=== PATIENT | male | born 1960 | race Caucasian/White ===

== ENCOUNTER 2018-02-17 17:17 | Emergency (ER) | payer MEDICAID ==
[~2018-02-17] VITALS: Ht 185.4 cm; Wt 113.4 kg
[2018-02-17 19:15] VITALS: BP 173/109
[2018-02-17] MEDS ORDERED: HYDROcodone-ACET 10/325MG TAB PO ONE (20:30)
== END 2018-02-17 20:52 | disposition home or self-care (01) ==
LOC: ER 17:20
DX: S46.912A Strain of unspecified muscle, fascia and tendon at shoulder and upper arm level, left arm, initial encounter (principal); I10 Essential (primary) hypertension; Z90.49 Acquired absence of other specified parts of digestive tract; W18.39XA Other fall on same level, initial encounter; Y93.89 Activity, other specified; Y92.89 Other specified places as the place of occurrence of the external cause; Y99.8 Other external cause status
CPT/HCPCS: 73030

== ENCOUNTER 2018-03-17 13:47 | Inpatient (IN) | payer MEDICAID ==
[~2018-03-17] VITALS: Ht 185.4 cm; Wt 109.4 kg
[2018-03-17] MEDS ORDERED: SODIUM CHLORIDE 0.9% 1,000 ML IV ONE (14:37)
[2018-03-17 14:54] LABS: Basophils # (auto) 0.1 uL; Basophils % (auto) 0.8 % (0.0-2.0); Eosinophils # (auto) 0.3 uL; Eosinophils % (auto) 3.2 % (0.0-7.0); Hematocrit 47.9 % (41.0-53.0); Hemoglobin 16.2 g/dL (13.5-17.5); Lymphocytes # (auto) 3.3 uL; Lymphocytes % (auto) 32.6 % (10.0-50.0); Mean Corpuscular Hemoglobin 29.6 pg (28.0-32.0); Mean Corpuscular Hgb Conc. 33.7 g/dL (32.0-36.0); Mean Corpuscular Volume 87.9 fL (80.0-100.0); Monocytes # (auto) 0.8 uL; Neutrophils # (auto) 5.7 uL; Neutrophils % (auto) 55.4 % (37.0-80.0); Nucleated Red Blood Cells % 0.5 %; Platelet Count (auto) 226 10^3/uL (140-450); Red Blood Cells 5.46 10^6/uL (4.5-5.90); Red Cell Distribution Width 14.1 % (11.8-14.3); White Blood Cell 10.3 10^3/uL (4.4-10.8)
[2018-03-17 15:13] LABS: Alanine Aminotransferase 54 U/L (16-61); Albumin 3.6 g/dL (3.4-5.0); Anion Gap 8 (5-15); Aspartate Aminotransferase 26 U/L (15-37); BUN/Creatinine Ratio 12.5; Blood Urea Nitrogen 12 mg/dL (7-18); Calcium 8.7 mg/dL (8.5-10.1); Carbon Dioxide 24 mmol/L (21-32); Chloride 109 mmol/L (98-107); GFR African American 104 mL/min; GFR Non-African American 86 mL/min; Glucose 88 mg/dL (74-106); Potassium 3.9 mmol/L (3.5-5.1); Sodium 141 mmol/L (136-145)
[2018-03-17 15:17] LABS: Alkaline Phosphatase 70 U/L (45-117); Bilirubin, Total 0.5 mg/dL (0.2-1.0); Total Protein 7.5 g/dL (6.4-8.2)
[2018-03-17] MEDS ORDERED: NITROGLYCERIN 0.4 MG SL TAB SL PRN (15:45)
[2018-03-17] MEDS ORDERED: MORPHINE SULFATE 4 MG/ML SYR/VIAL IV PRN (15:45)
[2018-03-17 15:54] LABS: INR 0.97 (0.9-1.15); Partial Thromboplastin Time 27.5 sec (22.64-33.71); Prothrombin Time 10.6 sec (9.37-12.3)
[2018-03-17 15:58] LABS: Blood Alcohol < 3.0 mg/dL (0-5)
[2018-03-17] MEDS ORDERED: ASPirin 81 mg TAB PO ONE (16:00)
[2018-03-17] MEDS ORDERED: ACETAMINOPHEN 325 MG RECT SUPP PR PRN (17:15)
[2018-03-17] MEDS ORDERED: LABETALOL HCL 5 MG/ML ML 20ML VIAL IV PRN (17:15)
[2018-03-17] MEDS: SODIUM CHLORIDE 0.9% 1,000 ML IV SCH (17:26)
[2018-03-17 18:42] LABS: Cholesterol 146 mg/dL (< 200); HDL Cholesterol 43 mg/dL (40-59); LDL Cholesterol 99 mg/dL (< 100); Triglycerides 125 mg/dL (< 150)
[2018-03-17 18:48] LABS: Folate (Folic Acid) 14.35 ng/mL (5.38-24)
[2018-03-17] MEDS: ACETAMINOPHEN 325 MG TAB PO PRN (20:13)
[2018-03-17 21:20] VITALS: BP 155/91
[2018-03-17] MEDS: FAMOTIDINE (10MG/ML) 2ML VL IV SCH (21:41)
[2018-03-17 22:00] VITALS: BP 159/86
[2018-03-17] MEDS ORDERED: ATORVASTATIN 20 MG TAB PO SCH (22:00)
[2018-03-18] VITALS (7 sets, daily range): BP systolic 132–156; BP diastolic 70–102
[2018-03-18 07:12] LABS: Cholesterol 133 mg/dL (< 200); HDL Cholesterol 37 mg/dL (40-59); LDL Cholesterol 90 mg/dL (< 100); Triglycerides 123 mg/dL (< 150)
[2018-03-18] MEDS ORDERED: LORazepam 2MG/ML-1ML VIAL IV ONE (09:45)
[2018-03-18] MEDS: FAMOTIDINE (10MG/ML) 2ML VL IV SCH ×2 (09:51→21:21)
[2018-03-18] MEDS: ASPirin 81 mg TAB PO SCH (09:52)
[2018-03-18] MEDS: ACETAMINOPHEN 325 MG TAB PO PRN (09:52)
[2018-03-18] MEDS: SODIUM CHLORIDE 0.9% 1,000 ML IV SCH (09:55)
[2018-03-18] MEDS ORDERED: NIFE60TA53 PO (10:51)
[2018-03-18] MEDS ORDERED: ACETTAB85 PO (10:51)
[2018-03-18] MEDS ORDERED: CYCL1TAB18 PO (10:51)
[2018-03-18] MEDS ORDERED: LISI-275 PO (10:51)
[2018-03-18] MEDS ORDERED: IBUP800T24 PO (10:51)
[2018-03-18] MEDS ORDERED: MORPHINE SULFATE 4 MG/ML SYR/VIAL IV PRN (12:15)
[2018-03-18] MEDS ORDERED: LABETALOL HCL 5 MG/ML ML 20ML VIAL IV PRN (17:00)
[2018-03-18] MEDS: HYDROcodone-ACET 5/325MG TAB PO PRN ×2 (17:09→23:21)
[2018-03-18] MEDS ORDERED: ATORVASTATIN 20 MG TAB PO SCH (22:00)
[2018-03-19] MEDS: SODIUM CHLORIDE 0.9% 1,000 ML IV SCH ×2 (02:09→19:15)
[2018-03-19 05:00] VITALS: BP 120/63
[2018-03-19] MEDS: HYDROcodone-ACET 5/325MG TAB PO PRN ×2 (08:27→17:25)
[2018-03-19 09:00] VITALS: BP 138/99
[2018-03-19] MEDS: FAMOTIDINE (10MG/ML) 2ML VL IV SCH (10:03)
[2018-03-19] MEDS: ASPirin 81 mg TAB PO SCH (10:04)
[2018-03-19 13:00] VITALS: BP 126/84
[2018-03-19 16:11] VITALS: BP 126/84
[2018-03-19 17:00] VITALS: BP 145/95
== END 2018-03-19 19:45 | DRG 45 ==
LOC: ER 13:51 → TELE 13:52 → TELE-WESTW 21:12
PROVIDERS: ADMIT Internal Medicine; ATTEND Internal Medicine
DX: I63.9 Cerebral infarction, unspecified (principal); G93.41 Metabolic encephalopathy; G81.91 Hemiplegia, unspecified affecting right dominant side; H53.461 Homonymous bilateral field defects, right side; E78.5 Hyperlipidemia, unspecified; F17.210 Nicotine dependence, cigarettes, uncomplicated; I11.9 Hypertensive heart disease without heart failure; G89.29 Other chronic pain; M54.5 Low back pain; Z59.0 Homelessness; Z79.82 Long term (current) use of aspirin; Z79.899 Other long term (current) drug therapy
CPT/HCPCS: 36415; 70450; 70551; 71046; 80053; 80061; 80320; 82607; 82746; 83036; 83735; 84443; 84484; 85025; 85610; 85730; 93005; 93306; 93886; 94761; 95819; 96360; 96361; J3490

== ENCOUNTER 2018-04-08 09:08 | Inpatient (IN) | payer MEDICAID ==
[~2018-04-08] VITALS: Ht 182.9 cm; Wt 103.7 kg
[~2018-04-08 09:08] MED LIST: ACETTAB85 PO; CYCL1TAB18 PO; IBUP800T24 PO; LISI-275 PO; NIFE60TA53 PO
[2018-04-08] MEDS: NIFEdipine ER 30 MG TAB PO SCH (10:00)
[2018-04-08 10:05] LABS: Basophils # (auto) 0.1 uL; Eosinophils # (auto) 0.2 uL; Eosinophils % (auto) 1.5 % (0.0-7.0); Hematocrit 44.8 % (41.0-53.0); Hemoglobin 14.5 g/dL (13.5-17.5); Lymphocytes # (auto) 3.2 uL; Lymphocytes % (auto) 23.9 % (10.0-50.0); Mean Corpuscular Hemoglobin 28.3 pg (28.0-32.0); Mean Corpuscular Hgb Conc. 32.4 g/dL (32.0-36.0); Mean Corpuscular Volume 87.3 fL (80.0-100.0); Monocytes # (auto) 0.9 uL; Monocytes % (auto) 6.3 % (0.0-12.0); Neutrophils % (auto) 67.3 % (37.0-80.0); Platelet Count (auto) 316 10^3/uL (140-450); Red Blood Cells 5.13 10^6/uL (4.5-5.90); Red Cell Distribution Width 14.1 % (11.8-14.3); White Blood Cell 13.4 10^3/uL (4.4-10.8)
[2018-04-08 10:22] LABS: Alanine Aminotransferase 67 U/L (16-61); Albumin 3.6 g/dL (3.4-5.0); Anion Gap 10 (5-15); Aspartate Aminotransferase 42 U/L (15-37); BUN/Creatinine Ratio 19.2; Blood Urea Nitrogen 24 mg/dL (7-18); Calcium 8.3 mg/dL (8.5-10.1); Carbon Dioxide 23 mmol/L (21-32); Chloride 104 mmol/L (98-107); GFR African American 77 mL/min; GFR Non-African American 63 mL/min; Glucose 165 mg/dL (74-106); Magnesium 1.9 mg/dL (1.6-2.6); Potassium 3.8 mmol/L (3.5-5.1); Sodium 137 mmol/L (136-145)
[2018-04-08 10:27] LABS: Alkaline Phosphatase 62 U/L (45-117); Bilirubin, Total 0.7 mg/dL (0.2-1.0); Total Protein 7.9 g/dL (6.4-8.2)
[2018-04-08 10:57] LABS: Alcohol, Urine < 3.0 mg/dL (0-5); Amphetamine Screen, Urine NEGATIVE (NEGATIVE); Barbiturate Scree,Urine NEGATIVE (NEGATIVE); Benzodiazephine Screen, Urine NEGATIVE (NEGATIVE); Cannabinoid Screen, Urine NEGATIVE (NEGATIVE); Cocaine Screen, Urine NEGATIVE (NEGATIVE); Opiate Scree,Urine NEGATIVE (NEGATIVE); Phencyclidine Screen, Urine NEGATIVE (NEGATIVE)
[2018-04-08 11:03] LABS: Urine Bacteria NONE SEEN /hpf (None Seen); Urine Blood Negative /uL (Negative); Urine Mucus FEW (None Seen); Urine Specific Gravity 1.028 (1.001-1.035); Urine WBC 1 /hpf (0 - 3)
[2018-04-08 11:31] LABS: INR 1.01 (0.9-1.15); Partial Thromboplastin Time 28.7 sec (23.78-33.04); Prothrombin Time 10.8 sec (9.27-12.13)
[2018-04-08] MEDS ORDERED: MORPHINE SULFATE 8mg/ml INJ SDV IV PRN ×2 (13:30)
[2018-04-08] MEDS ORDERED: CYCLOBENZAPRINE HCL 10 MG TAB PO PRN (13:30)
[2018-04-08] MEDS ORDERED: LACTULOSE 20Gm/30ML SOLN PO PRN (13:30)
[2018-04-08] MEDS ORDERED: TEMAZEPAM 15 MG CAP PO PRN (13:30)
[2018-04-08] MEDS ORDERED: LORazepam 0.5 MG TAB PO PRN (13:30)
[2018-04-08] MEDS ORDERED: PROMETHAZINE HCL 25 MG/ML 1ML IV PRN (13:30)
[2018-04-08] MEDS ORDERED: ACETAMINOPHEN 500 MG TAB PO PRN (13:30)
[2018-04-08] MEDS ORDERED: NITROGLYCERIN 0.4 MG SL TAB SL PRN (13:30)
[2018-04-08] MEDS ORDERED: DEXTROSE (50%) 50ML SYRG IV PRN (13:30)
[2018-04-08] MEDS ORDERED: LABETALOL HCL 5 MG/ML ML 20ML VIAL IV PRN (13:30)
[2018-04-08] MEDS ORDERED: HYDROcodone-ACET 5/325MG TAB PO PRN (13:30)
[2018-04-08] MEDS ORDERED: ENOXAPARIN SOD 40 MG/0.4 ML SYRINGE SC ONE (14:00)
[2018-04-08] MEDS ORDERED: ASPirin 81 mg TAB PO ONE (14:00)
[2018-04-08] MEDS ORDERED: LISINOPRIL 5 MG TAB PO ONE (14:00)
[2018-04-08] MEDS ORDERED: NIFEdipine ER 30 MG TAB PO ONE (14:00)
[2018-04-08] MEDS ORDERED: PANTOPRAZOLE 40 MG TAB PO ONE (14:00)
[2018-04-08] MEDS: SODIUM CHLORIDE 0.9% 1,000 ML IV SCH (14:24)
[2018-04-08] MEDS: InsuLIN REG 1unit/0.01ml Soln (100units/ml) SC SCH ×2 (17:00→22:00)
[2018-04-08] MEDS: ACCU-CHEK COMFORT CURVE STRIP VI SCH ×2 (17:06→22:15)
[2018-04-08] MEDS ORDERED: LORazepam 2MG/ML-1ML VIAL IV PRN (17:45)
[2018-04-08 18:03] LABS: Folate (Folic Acid) 16.15 ng/mL (5.38-24)
[2018-04-08] MEDS: ATORVASTATIN 20 MG TAB PO SCH (22:13)
[2018-04-08 23:00] VITALS: BP 121/71
[2018-04-09] MEDS: SODIUM CHLORIDE 0.9% 1,000 ML IV SCH ×2 (01:49→06:04)
[2018-04-09 05:07] VITALS: BP 103/64
[2018-04-09] MEDS: ACCU-CHEK COMFORT CURVE STRIP VI SCH ×3 (06:03→17:13)
[2018-04-09] MEDS: InsuLIN REG 1unit/0.01ml Soln (100units/ml) SC SCH ×3 (06:03→17:00)
[2018-04-09 07:09] LABS: Basophils # (auto) 0 uL; Basophils % (auto) 0.5 % (0.0-2.0); Eosinophils # (auto) 0.3 uL; Eosinophils % (auto) 2.8 % (0.0-7.0); Hematocrit 40.5 % (41.0-53.0); Hemoglobin 13.6 g/dL (13.5-17.5); Lymphocytes # (auto) 5.2 uL; Lymphocytes % (auto) 47.8 % (10.0-50.0); Mean Corpuscular Hemoglobin 29.3 pg (28.0-32.0); Mean Corpuscular Hgb Conc. 33.7 g/dL (32.0-36.0); Mean Corpuscular Volume 86.9 fL (80.0-100.0); Monocytes # (auto) 0.8 uL; Monocytes % (auto) 7.7 % (0.0-12.0); Neutrophils # (auto) 4.5 uL; Neutrophils % (auto) 41.2 % (37.0-80.0); Nucleated Red Blood Cells % 0.2 %; Platelet Count (auto) 268 10^3/uL (140-450); Red Blood Cells 4.66 10^6/uL (4.5-5.90); Red Cell Distribution Width 13.7 % (11.8-14.3); White Blood Cell 10.8 10^3/uL (4.4-10.8)
[2018-04-09 07:13] LABS: Albumin 3.3 g/dL (3.4-5.0); BUN/Creatinine Ratio 22.2; Bilirubin, Total 0.7 mg/dL (0.2-1.0); Calcium 8.2 mg/dL (8.5-10.1); Potassium 3.8 mmol/L (3.5-5.1); Total Protein 6.9 g/dL (6.4-8.2)
[2018-04-09] MEDS ORDERED: SODIUM CHLORIDE 0.9% 1,000 ML IV SCH (08:30)
[2018-04-09 08:55] VITALS: BP 116/82
[2018-04-09] MEDS: LISINOPRIL 5 MG TAB PO SCH (09:14)
[2018-04-09] MEDS: PANTOPRAZOLE 40 MG TAB PO SCH (09:14)
[2018-04-09] MEDS: NIFEdipine ER 30 MG TAB PO SCH (09:14)
[2018-04-09] MEDS ORDERED: ENOXAPARIN SOD 40 MG/0.4 ML SYRINGE SC SCH (10:00)
[2018-04-09] MEDS ORDERED: ASPirin 81 mg TAB PO SCH (10:00)
[2018-04-09] MEDS ORDERED: IOHEXOL 350 MG/ML 100ML IJ ONE (10:24)
[2018-04-09 12:00] VITALS: BP 116/72
[2018-04-09 16:49] VITALS: BP 118/80
[2018-04-09] MEDS ORDERED: HEPARIN DRIP/D5W 100UNITS/ML 250 ML IV SCH (17:17)
[2018-04-09 18:34] LABS: Basophils # (auto) 0.1 uL; Basophils % (auto) 0.6 % (0.0-2.0); Eosinophils # (auto) 0.3 uL; Eosinophils % (auto) 2.8 % (0.0-7.0); Hematocrit 42.9 % (41.0-53.0); Hemoglobin 14.2 g/dL (13.5-17.5); Lymphocytes # (auto) 4.1 uL; Lymphocytes % (auto) 36.2 % (10.0-50.0); Mean Corpuscular Hgb Conc. 33.1 g/dL (32.0-36.0); Mean Corpuscular Volume 87.8 fL (80.0-100.0); Monocytes # (auto) 0.9 uL; Monocytes % (auto) 7.7 % (0.0-12.0); Neutrophils # (auto) 5.9 uL; Neutrophils % (auto) 52.7 % (37.0-80.0); Platelet Count (auto) 290 10^3/uL (140-450); Red Blood Cells 4.88 10^6/uL (4.5-5.90); White Blood Cell 11.2 10^3/uL (4.4-10.8)
[2018-04-09 18:51] LABS: Partial Thromboplastin Time 29.2 sec (23.78-33.04); Prothrombin Time 10.7 sec (9.27-12.13)
[2018-04-09 20:00] VITALS: BP 134/92
[2018-04-09] MEDS: ATORVASTATIN 20 MG TAB PO SCH (21:35)
[2018-04-09 22:00] VITALS: BP 134/92
[2018-04-10 03:47] LABS: Basophils # (auto) 0.1 uL; Basophils % (auto) 0.6 % (0.0-2.0); Eosinophils # (auto) 0.4 uL; Eosinophils % (auto) 3.3 % (0.0-7.0); Hemoglobin 13.8 g/dL (13.5-17.5); Lymphocytes % (auto) 46.9 % (10.0-50.0); Mean Corpuscular Hemoglobin 29.1 pg (28.0-32.0); Mean Corpuscular Hgb Conc. 33.8 g/dL (32.0-36.0); Mean Corpuscular Volume 86.3 fL (80.0-100.0); Monocytes # (auto) 0.8 uL; Monocytes % (auto) 7.6 % (0.0-12.0); Neutrophils # (auto) 4.5 uL; Neutrophils % (auto) 41.6 % (37.0-80.0); Nucleated Red Blood Cells % 0.1 %; Platelet Count (auto) 266 10^3/uL (140-450); Red Blood Cells 4.75 10^6/uL (4.5-5.90); Red Cell Distribution Width 13.9 % (11.8-14.3); White Blood Cell 10.8 10^3/uL (4.4-10.8)
[2018-04-10 04:01] LABS: BUN/Creatinine Ratio 19.5; Calcium 8.4 mg/dL (8.5-10.1); Magnesium 2.1 mg/dL (1.6-2.6); Potassium 3.7 mmol/L (3.5-5.1)
[2018-04-10 04:02] LABS: Partial Thromboplastin Time 28.1 sec (23.78-33.04); Prothrombin Time 10.7 sec (9.27-12.13)
[2018-04-10 05:00] VITALS: BP 130/77
[2018-04-10] MEDS ORDERED: HEPARIN SODIUM (PORCINE) 5000 UNITS/ML 1ML VIAL IV ONE ×2 (07:00→10:30)
[2018-04-10 09:00] VITALS: BP 117/66
[2018-04-10] MEDS: PANTOPRAZOLE 40 MG TAB PO SCH (09:11)
[2018-04-10] MEDS: NIFEdipine ER 30 MG TAB PO SCH (09:12)
[2018-04-10] MEDS: LISINOPRIL 5 MG TAB PO SCH (09:12)
[2018-04-10 09:27] LABS: Partial Thromboplastin Time 28.1 sec (23.78-33.04); Prothrombin Time 10.7 sec (9.27-12.13)
[2018-04-10 16:39] VITALS: BP 103/65
[2018-04-10 20:00] VITALS: BP 117/66
[2018-04-10] MEDS: ATORVASTATIN 20 MG TAB PO SCH (20:54)
[2018-04-10 22:00] VITALS: BP 140/78
[2018-04-11 05:12] VITALS: BP 134/83
[2018-04-11 07:54] VITALS: BP 102/72
[2018-04-11] MEDS: NIFEdipine ER 30 MG TAB PO SCH (09:15)
[2018-04-11] MEDS: PANTOPRAZOLE 40 MG TAB PO SCH (09:15)
[2018-04-11] MEDS: LISINOPRIL 5 MG TAB PO SCH (09:16)
[2018-04-11 09:37] VITALS: BP 102/72
[2018-04-11] MEDS ORDERED: ASPirin 81 mg TAB PO SCH (10:00)
== END 2018-04-11 10:47 | DRG 45 ==
LOC: ER 09:10 → TELE 09:11 → TELE-WESTW 22:53
PROVIDERS: ADMIT Internal Medicine; ATTEND Internal Medicine
DX: I63.232 Cerebral infarction due to unspecified occlusion or stenosis of left carotid arteries (principal); I77.71 Dissection of carotid artery; I61.9 Nontraumatic intracerebral hemorrhage, unspecified; I67.1 Cerebral aneurysm, nonruptured; E11.65 Type 2 diabetes mellitus with hyperglycemia; G81.91 Hemiplegia, unspecified affecting right dominant side; K59.00 Constipation, unspecified; F41.9 Anxiety disorder, unspecified; G47.00 Insomnia, unspecified; R47.01 Aphasia; F12.90 Cannabis use, unspecified, uncomplicated; I67.2 Cerebral atherosclerosis; D72.829 Elevated white blood cell count, unspecified; R00.1 Bradycardia, unspecified; G89.29 Other chronic pain; M54.5 Low back pain; I10 Essential (primary) hypertension; F17.210 Nicotine dependence, cigarettes, uncomplicated; R29.707 NIHSS score 7; Z59.0 Homelessness; Z79.82 Long term (current) use of aspirin; Z79.899 Other long term (current) drug therapy; Z90.49 Acquired absence of other specified parts of digestive tract
CPT/HCPCS: 36415; 70450; 70496; 70498; 70551; 71046; 80048; 80053; 80061; 80307; 81001; 82550; 82607; 82746; 82962; 83036; 83735; 84443; 84484; 85025; 85610; 85652; 85730; 87081; 92610; 93005; 95819; 96360; 96372; 97116; 97163; 97530; J1815

== ENCOUNTER 2021-04-06 20:37 | Emergency (ER) | payer MEDICAID ==
[~2021-04-06] VITALS: Ht 182.9 cm; Wt 117.9 kg
[~2021-04-06 20:37] MED LIST changes: +ACET-1603 PO; -ACETTAB85 PO; +CYCL10TA6 PO; -CYCL1TAB18 PO; -IBUP800T24 PO; +IBUP800T26 PO
[2021-04-06 21:26] LABS: Basophils # (auto) 0.1 10 ^3/uL (0-0.2); Basophils % (auto) 0.5 % (0.0-2.0); Eosinophils # (auto) 0.4 10 ^3/uL (0-0.8); Eosinophils % (auto) 4.2 % (0.0-7.0); Hematocrit 48.9 % (41.0-53.0); Hemoglobin 17.1 g/dL (13.5-17.5); Lymphocytes # (auto) 3.7 10 ^3/uL (0.4-5.4); Lymphocytes % (auto) 36.6 % (10.0-50.0); Mean Corpuscular Hemoglobin 30.4 pg (28.0-32.0); Mean Corpuscular Hgb Conc. 34.9 g/dL (32.0-36.0); Mean Corpuscular Volume 87.3 fL (80.0-100.0); Monocytes # (auto) 0.8 10 ^3/uL (0-1.3); Neutrophils # (auto) 5.1 10 ^3/uL (1.6-8.6); Neutrophils % (auto) 50.7 % (37.0-80.0); Nucleated Red Blood Cells % 0.4 %; Platelet Count (auto) 231 10^3/uL (140-450); Red Cell Distribution Width 14.4 % (11.8-14.3); White Blood Cell 10.1 10^3/uL (4.4-10.8)
[2021-04-06 21:43] LABS: Albumin 3.6 g/dL (3.4-5.0); Calcium 8.7 mg/dL (8.5-10.1)
[2021-04-06 21:47] LABS: BUN/Creatinine Ratio 12.2; Bilirubin, Total 0.5 mg/dL (0.2-1.0); Total Protein 8.1 g/dL (6.4-8.2)
[2021-04-07 02:40] LABS: Urine Bacteria NONE SEEN /hpf (None Seen); Urine Blood Negative /uL (Negative); Urine Hyaline Cast FEW /lpf (0 - 2); Urine Mucus FEW (None Seen); Urine Specific Gravity 1.034 (1.001-1.035); Urine WBC 2 /hpf (0 - 3)
[2021-04-07 02:44] LABS: Amphetamine Screen, Urine POSITIVE (NEGATIVE); Benzodiazephine Screen, Urine NEGATIVE (NEGATIVE); Cannabinoid Screen, Urine POSITIVE (NEGATIVE); Cocaine Screen, Urine NEGATIVE (NEGATIVE); Opiate Scree,Urine NEGATIVE (NEGATIVE); Phencyclidine Screen, Urine NEGATIVE (NEGATIVE)
[2021-04-07 02:51] LABS: Barbiturate Scree,Urine NEGATIVE (NEGATIVE)
[2021-04-07 03:00] VITALS: BP 167/105
== END 2021-04-06 22:25 | disposition left against medical advice (07) ==
LOC: ER 20:37 → EDBD 20:37 → ER 22:25
DX: F41.9 Anxiety disorder, unspecified (principal); M79.18 Myalgia, other site; I10 Essential (primary) hypertension; F17.210 Nicotine dependence, cigarettes, uncomplicated; Z79.899 Other long term (current) drug therapy; Z86.73 Personal history of transient ischemic attack (TIA), and cerebral infarction without residual deficits; Z90.89 Acquired absence of other organs; Z59.0 Homelessness; Z53.21 Procedure and treatment not carried out due to patient leaving prior to being seen by health care provider
CPT/HCPCS: 36415; 80053; 80307; 81001; 85025; 93005

== ENCOUNTER 2024-12-22 20:18 | Inpatient (IN) | payer MEDICAID ==
[~2024-12-22] VITALS: Ht 180.3 cm; Wt 109.5 kg
[~2024-12-22 20:18] MED LIST changes: +CYCL-839 PO; -CYCL10TA6 PO; +IBUP-1455 PO; -IBUP800T26 PO
--- NOTE | 2024-12-22 21:05 | ED.PDOC ---
History of Present Illness HPI Comments 64 year old male brought in by EMS presents to the ED with a chief complaint of high blood pressure onset today (12/22/24). Patient states he woke up today experiencing headache, chest discomfort described as a pressure sensation. He was riding his bike to [place], when he "felt bad" and believes his BP is high, called 911. PMHx HTN, CVA. Denies dizziness, blurry vision, shortness of breath, nausea, vomiting, diarrhea, abdominal pain, dysuria, hematuria. No other symptoms or modifying factors present at this time. Chief Complaint: High Blood Pressure Time Seen by MD: 20:45 Primary Care Provider: Maulik Jang Notes: Medications, Allergies Allergies: Coded Allergies: NO KNOWN ALLERGIES (Unverified , 02/17/18) Home Meds Reported Medications Cyclobenzaprine Hcl (Cyclobenzaprine Hcl) 10 Mg Tab, 10 MG PO 03/18/18 Acetaminophen W/ Codeine (Tylenol/Codeine #3) #3 Tab, PO Q6HPRN 03/18/18 Ibuprofen Micronized (Ibuprofen) 800 Mg Tab, 800 MG PO 03/18/18 Lisinopril (Lisinopril) 5 Mg Tab, 5 MG PO DAILY 03/18/18 Nifedipine (Nifedipine Er) 60 Mg Tab, 60 MG PO DAILY 03/18/18 Information Source: Patient, Emergency Med Personnel Mode of Arrival: EMS Severity: Moderate Timing: Hours Duration: Since onset Prehospital treatment: None Past Medical History PAST MEDICAL HISTORY: CVA, HTN Surgical History: Appendectomy Family History Family History: Unknown Social History Smoker: Cigarettes Alcohol: Denies ETOH Use Drugs: Marijuana Lives In: Homeless Constitutional: denies: chills, diaphoresis, fatigue, fever, malaise, sweats, w eakness, others EENTM: denies: blurred vision, double vision, ear bleeding, ear discharge, ear drainage, ear pain, ear ringing, eye pain, eye redness, hearing loss, mouth pain, mouth swelling, nasal discharge, nose bleeding, nose congestion, nose pain, photophobia, tearing, throat pain, throat swelling, voice changes, others Respiratory: denies: cough, hemoptysis, orthopnea, SOB at rest, shortness of breath, SOB with excertion, stridor, wheezing, others Cardiovascular: reports: chest pain (pressure), others (high BP); denies: dizzy spells, diaphoresis, Dyspnea on exertion, edema, irregular heart beat, left arm pain, lightheadedness, palpitations, PND, syncope Gastrointestinal: denies: abdomen distended, abdominal pain, blood streaked bowels, constipated, diarrhea, dysphagia, difficulty swallowing, hematemesis, melena, nausea, poor appetite, poor fluid intake, rectal bleeding, rectal pain, vomiting, others Genitourinary: denies: burning, dysuria, flank pain, frequency, hematuria, incontinence, penile discharge, penile sore, pain, testicle pain, testicle swelling, urgency, others Neurological: reports: headache; denies: dizziness, fainting, left sided numbness, left sided weakness, numbness, paresthesia, pre-existing deficit, right sided numbness, right sided weakness, seizure, speech problems, tingling, tremors, weakness, others Musculoskeletal: denies: back pain, gout, joint pain, joint swelling, muscle pain, muscle stiffness, neck pain, others Integumetry: denies: bruises, change in color, change in hair/nails, dryness, laceration, lesions, lumps, rash, wounds, others Allergic/Immunocompromised: denies: Difficulty Healing, Frequent Infections, Hives, Itching, others Hematologic/Lymphatic: denies: anemia, blood clots, easy bleeding, easy bruising, swollen glands, others Endocrine: denies: excessive hunger, excessive sweating, excessive thirst, excessive urination, flushing, intolerance to cold, intolerance to heat, unexplained weight gain, unexplained weight loss, others Psychiatric: denies: anxiety, bipolar disorder, depression, hopeless, panic disorder, schizophrenia, sleepless, suicidal, others All Other Systems: Reviewed and Negative Physical Exam General Appearance: No Apparent Distress, Normal HEENT: Normal ENT Inspection, Pharynx Normal, TMs Normal Neck: Full Range of Motion, Non-Tender, Normal, Normal Inspection Respiratory: Chest Non-Tender, Lungs Clear, No Accessory Muscle Use, No Respiratory Distress, Normal Breath Sounds Cardiovascular: No Edema, No JVD, No Murmur, No Gallop, Normal Peripheral Pulses, Regular Rate/Rhythm Breast Exam: Deferred Gastrointestinal: No Organomegaly, Non Tender, No Pulsatile Mass, Normal Bowel Sounds, Soft Genitalia: Deferred Pelvic: Deferred Rectal: Deferred Extremities: No calf tenderness, Normal capillary refill, Normal inspection, Normal range of motion, Non-tender, No pedal edema Musculoskeletal : Apperance: Normal Neurologic: Alert, computer security manager II-XII nml as Tested, No Motor Deficits, Normal Affect, Normal Mood, No Sensory Deficits Cerebellar Function: Normal Reflexes: Normal Skin: Dry, Normal Color, Warm Lymphatic: No Adenopathy Was a procedure done? Was a procedure done?: No Differential Dx Considerations may include: Hypertensive emergency, electrolyte abnormality, viral syndrome, ACS, CVA X-Ray, Labs, Meds, VS Vital Signs Date Time Temp Pulse Resp B/P (MAP) Pulse Ox O2 Delivery O2 Flow Rate FiO2 12/22/24 20:18 98.4 61 18 167/109 (128) 98 Lab Test 12/22/24 22:34 12/22/24 21:31 Range/Units Troponin I High Sensitivity 4 4 </=54 ng/L White Blood Count 11.0 H 4.4-10.8 10^3/uL Red Blood Count 5.50 4.5-5.90 10^6/uL Hemoglobin 16.2 13.5-17.5 g/dL Hematocrit 47.9 41.0-53.0 % Mean Corpuscular Volume 87.1 80.0-100.0 fL Mean Corpuscular Hemoglobin 29.4 28.0-32.0 pg Mean Corpuscular Hemoglobin Concent 33.7 32.0-36.0 g/dL Red Cell Distribution Width 14.7 H 11.8-14.3 % Platelet Count 225 140-450 10^3/uL Mean Platelet Volume 8.4 6.9-10.8 fL Neutrophils (%) (Auto) 52.0 37.0-80.0 % Lymphocytes (%) (Auto) 36.4 10.0-50.0 % Monocytes (%) (Auto) 7.1 0.0-12.0 % Eosinophils (%) (Auto) 3.4 0.0-7.0 % Basophils (%) (Auto) 1.1 0.0-2.0 % Neutrophils # (Auto) 5.7 1.6-8.6 10 ^3/uL Lymphocytes # (Auto) 4.0 0.4-5.4 10 ^3/uL Monocytes # (Auto) 0.8 0-1.3 10 ^3/uL Eosinophils # (Auto) 0.4 0-0.8 10 ^3/uL Basophils # (Auto) 0.1 0-0.2 10 ^3/uL Nucleated Red Blood Cells 0.1 % Sodium Level 138 136-145 mmol/L Potassium Level 4.1 3.5-5.1 mmol/L Chloride Level 108 H 98-107 mmol/L Carbon Dioxide Level 22 20-31 mmol/L Anion Gap 8 5-15 Blood Urea Nitrogen 15 9-23 mg/dL Creatinine 0.98 0.700-1.30 mg/dL Glomerular Filtration Rate Calc 86 >90 mL/min BUN/Creatinine Ratio 15.3 10.0-20.0 Serum Glucose 118 H 74-106 mg/dL Calcium Level 9.7 8.7-10.4 mg/dL [place] [address] Ph: [phone] DIAGNOSTIC IMAGING Diagnostic Imaging Report : [id number] Signed PATIENT: NANCY ORELLANA ACCT: [id number] UNIT: [id number] : 1960 LOC: ER ROOM / BED: / AGE / SEX: 64 / M ADM STATUS: REG ER SERVICE 10 ORDERING PHYSICIAN: HOMA LOUISE MD PROCEDURE(s): CXRP - CHEST PORTABLE REASON: htn ORDER NUMBER(s): [id number], ACCESSION NUMBER(s): [id number] CHEST RADIOGRAPH Indication: htn Technique: Single frontal view of the chest was obtained Comparison: None FINDINGS: Lines and Tubes: None Lungs: Clear Pleura: No effusion. No pneumothorax. Cardiomediastinal contours: Unremarkable Bones: Unremarkable IMPRESSION: Clear lungs. ATED BY: LORI WELDON DO DICTATED DATE/TIME: 12/22/242228 SIGNED BY: LORI WELDON DO SIGNED DATE/TIME: 12/22/242228 CC: [address] [address] Ph: [phone] DIAGNOSTIC IMAGING Diagnostic Imaging Report : [id number] Signed PATIENT: NANCY ORELLANA ACCT: [id number] UNIT: [id number] : 1960 LOC: ER ROOM / BED: / AGE / SEX: 64 / M ADM STATUS: REG ER SERVICE 10 ORDERING PHYSICIAN: HOMA LOUISE MD PROCEDURE(s): HWOCT - HEAD WITHOUT CONTRAST REASON: near syncope ORDER NUMBER(s): [id number], ACCESSION NUMBER(s): [id number] EXAM: CT HEAD WITHOUT CONTRAST INDICATION: near syncope TECHNIQUE: CT of the head without intravenous contrast. Radiation Dose Information: CT Dose: CTDI volume is 62.45 mGy. Dose-length product is 1230.51 mGy*cm The dose indicators for CT are the volume Computed Tomography (CT) Dose Index (CTDIvol) and the Dose Length Product (DLP), and are measured in units of mGy and mGy-cm, respectively. These indicators are not patient dose, but values generated from the CT scanner acquisition factors. The report includes radiation exposure data for exposures received during this examination. COMPARISON: None FINDINGS: There is no evidence of acute intracranial hemorrhage, extra-axial collection, mass effect, midline shift, herniation or hydrocephalus. The ventricles, sulci and cisterns are age appropriate. Area of decreased attenuation posterior left parietal lobe suggesting old infarct The ni-white differentiation is intact. Patchy periventricular and subcortical white matter hypoattenuation is nonspecific but may be related to small vessel ischemic disease. Mucosal thickening of the right maxillary sinus sinuses and mastoid air cells are clear. The surrounding soft tissues and osseous structures are unremarkable. IMPRESSION: 1. Findings consistent with area of encephalomalacia (i.e. Old infarct) posterior left parietal lobe. ATED BY: NIVIA JACKMAN Jr., DO DICTATED DATE/TIME: 12/22/242249 SIGNED BY: NIVIA JACKMAN Jr., SIGNED DATE/TIME: 12/22/242249 CC: Time of 1ST Reevaluation: 21:15 Reevaluation 1ST: Unchanged Patient Education/Counseling: Diagnosis, Treatment, Prognosis Family Education/Counseling: No Family Present Additional Information The following tests were ordered, and results were reviewed by me: BMP, CBC, TROP -x3, UA, XY CHEST, CT HEAD WO CONTRAST Additional Information was gathered from interviewing the following independent historians: EMS I reviewed and agreed with the following test results read by other providers:XY CHEST, CT HEAD WO CONTRAST I discussed treatment and results with medical personnel and: patient Departure 1 Departure Time of Disposition: 23:23 (Patient presented with hypertension and symptoms concerning for hypertensive emergency. Patient is receiving iv blood pressure medications requiring intensive monitoring. Data: 1. I ordered and reviewed the result of at least 3 labs including a CBC, BMP, and Urinalysis. 2. I independently interpreted the following tests: CT Brain: Which appears benign. EKG which is Normal Sinus RhythmRisk:This patient has a high risk of morbidity due to further diagnostic testing or treatment and may suffer from an acute cardiac disorder. Workup reveals hypertensive emergency and patient should be admitted for further workup. and possible expert consultation. ) Impression: Primary Impression: Hypertensive emergency Additional Impressions: Generalized weakness Near syncope Shortness of breath Disposition: ADMITTED INPATIENT Admit to: Med Surg Condition: Serious Critical Care Note Critical Care Time?: No Stability Stability form required: No I personally scribed for HOMA LOUISE MD (FAHAD) on 12/22/24 at 21:05. Electronically submitted by Julisa Rutledge ([email or web address]). I personally scribed for HOMA LOUISE MD (FAHAD) on 12/22/24 at 21:29. Electronically submitted by Julisa Rutledge ([email or web address]). I personally scribed for HOMA LOUISE MD (FAHAD) on 12/22/24 at 21:44. Electronically submitted by Julisa Rutledge ([email or web address]). I personally scribed for HOMA LOUISE MD ([email or web address]) on 12/22/24 at 22:10. Electronically submitted by Julisa Rutledge ([email or web address]). I personally scribed for HOMA LOUISE MD (AYADO) on 12/22/24 at 22:12. Electronically submitted by Julisa Rutledge ([email or web address]). I personally scribed for HOMA LOUISE MD (FAHAD) on 12/22/24 at 23:00. Electronically submitted by Julisa Rutledge ([email or web address]). HOMA LOUISE MD Dec 22, 2024 21:05
[2024-12-22 21:47] LABS: Basophils # (auto) 0.1 10 ^3/uL (0-0.2); Basophils % (auto) 1.1 % (0.0-2.0); Eosinophils # (auto) 0.4 10 ^3/uL (0-0.8); Eosinophils % (auto) 3.4 % (0.0-7.0); Hematocrit 47.9 % (41.0-53.0); Hemoglobin 16.2 g/dL (13.5-17.5); Lymphocytes % (auto) 36.4 % (10.0-50.0); Mean Corpuscular Hemoglobin 29.4 pg (28.0-32.0); Mean Corpuscular Hgb Conc. 33.7 g/dL (32.0-36.0); Mean Corpuscular Volume 87.1 fL (80.0-100.0); Monocytes # (auto) 0.8 10 ^3/uL (0-1.3); Monocytes % (auto) 7.1 % (0.0-12.0); Neutrophils # (auto) 5.7 10 ^3/uL (1.6-8.6); Nucleated Red Blood Cells % 0.1 %; Platelet Count (auto) 225 10^3/uL (140-450); Red Cell Distribution Width 14.7 % (11.8-14.3)
[2024-12-22 22:02] LABS: Potassium 4.1 mmol/L (3.5-5.1); Sodium 138 mmol/L (136-145)
[2024-12-22 22:03] LABS: Anion Gap 8 (5-15); Calcium 9.7 mg/dL (8.7-10.4); Carbon Dioxide 22 mmol/L (20-31)
[2024-12-22 22:08] LABS: BUN/Creatinine Ratio 15.3 (10.0-20.0); Blood Urea Nitrogen 15 mg/dL (9-23)
[2024-12-22 22:15] LABS: Chloride 108 mmol/L (98-107); Glucose 118 mg/dL (74-106)
--- NOTE | 2024-12-22 22:31 | DVH ---
CHEST RADIOGRAPH Indication: htn Technique: Single frontal view of the chest was obtained Comparison: None FINDINGS: Lines and Tubes: None Lungs: Clear Pleura: No effusion. No pneumothorax. Cardiomediastinal contours: Unremarkable Bones: Unremarkable IMPRESSION: Clear lungs.
--- NOTE | 2024-12-22 22:52 | DVH ---
EXAM: CT HEAD WITHOUT CONTRAST INDICATION: near syncope TECHNIQUE: CT of the head without intravenous contrast. Radiation Dose Information: CT Dose: CTDI volume is 62.45 mGy. Dose-length product is 1230.51 mGy*cm The dose indicators for CT are the volume Computed Tomography (CT) Dose Index (CTDIvol) and the Dose Length Product (DLP), and are measured in units of mGy and mGy-cm, respectively. These indicators are not patient dose, but values generated from the CT scanner acquisition factors. The report includes radiation exposure data for exposures received during this examination. COMPARISON: None FINDINGS: There is no evidence of acute intracranial hemorrhage, extra-axial collection, mass effect, midline s hift, herniation or hydrocephalus. The ventricles, sulci and cisterns are age appropriate. Area of decreased attenuation posterior left parietal lobe suggesting old infarct The ni-white differentiation is intact. Patchy periventricular and subcortical white matter hypoattenuation is nonspecific but may be related to small vessel ischemic disease. Mucosal thickening of the right maxillary sinus sinuses and mastoid air cells are clear. The surrounding soft tissues and osseous structures are unremarkable. IMPRESSION: 1. Findings consistent with area of encephalomalacia (i.e. Old infarct) posterior left parietal lobe.
[2024-12-23] MEDS ORDERED: ONDANSETRON HCL 4 MG/2 ML VIAL IV PRN (00:45)
--- NOTE | 2024-12-23 01:04 | DVHHP2 ---
Admitting Diagnosis: rule out acute CVA History of Present Illness History Source: Patient Exam Limitations: Clinical condition HPI Mr. Arash Blue is a 64 year old male with a history of CVA, Hypertension who presents with a chief complaint of high blood pressure onset today (12/22/24). Patient states he woke up today experiencing headache, blurry vision, chest discomfort described as a pressure sensation. He was [place] his bike [place], when he "felt bad" and believes his BP is high, called 911. Patient endorses right sided weakness and numbness and worsening expressive aphasia. Patient endorses he has had x 2 CVA's. Patient endorses he has been homeless for the past 5 days. Patient denies nausea, vomiting, dizziness, fevers, chest pain. Patient admitted for further evaluation. Home Meds Reported Medications Cyclobenzaprine Hcl (Cyclobenzaprine Hcl) 10 Mg Tab, 10 MG PO 03/18/18 Acetaminophen W/ Codeine (Tylenol/Codeine #3) #3 Tab, PO Q6HPRN 03/18/18 Ibuprofen Micronized (Ibuprofen) 800 Mg Tab, 800 MG PO 03/18/18 Lisinopril (Lisinopril) 5 Mg Tab, 5 MG PO DAILY 03/18/18 Nifedipine (Nifedipine Er) 60 Mg Tab, 60 MG PO DAILY 03/18/18 Past Medical History Cardiac: HTN Pulmonary: No pertinent Hx Central Nervous System: CVA GI: No pertinent Hx Hemotology/Oncology: No pertinent Hx Hepatobiliary: No pertinent Hx Psychiatric: No pertinent Hx Musculoskeletal: No pertinent Hx Rheumotologic: No pertinent Hx Infectious Disease: No peritnent Hx ENT: No pertinent Hx Renal/: No pertinent Hx Endocrine: No pertinent Hx Dermatology: No pertinent Hx Patient Family History: Patient reports no known family medical history. Smoker: <1 pack per day Alocohol: None Drugs: None Lives with: Homeless Domestic Violence: Neg Review of Systems Comments expressive aphasia Constitutional: Weakness (right sided weakness/numbness) Ears, Nose, & Throat: No symptom reported Eyes: No symptom reported Pulmonary/Respiratory: No symptom reported Cardiovascular: No symptom reported Gastrointestinal: No symptom reported Genitourinary: No symptom reported Musculoskeletal: No symptom reported Skin: No symptom reported Psychiatric: No symptom reported Endocrine: No symptom reported Hemotologic/Lymphatic: No symptom reported H&P Exam Vital Signs Vital Signs Date Time Temp Pulse Resp B/P (MAP) Pulse Ox O2 Delivery O2 Flow Rate FiO2 12/22/24 20:18 98.4 61 18 167/109 (128) 98 General Appeara: Well developed, Well nourished, Normal Appearance Head Exam: Normal inspection Neck Exam: Normal inspection, Non-tender, Normal alignment Eye Exam: bilateral eye Normal inspection, bilateral eye PERRL, bilateral eye EOMI Ear Exam: bilateral ear Auricle normal Nasal Exam: Normal inspection Mouth: Normal Inspection Pulmonary/Respiratory: Normal inspection, Normal breath sounds, Chest non- tender, Lungs clear Cardiovascular/Chest: Normal inspection, Regular rate, Normal Rhythm Peripheral Pulses: 2+ dorsalis pedis (R), 2+ dorsalis pedis (L), 2+ Radial (R), 2+ Radial (L) Abdominal Exam: Normal bowel sounds, Soft, No tenderness Rectal Exam: Deferred ROTOR PILOT Exam: Normal hearing, PERRL, Abnormal speech Neuro/Mental St: Alert, Oriented Appearance: Appropriate insight, Disheveled Eye contact/ Speech: Cooperative, Good eye contact, Other (difficulty speech, expressive aphasia) Thoughts/Psych: Normal thought pattern Skin Exam: Normal inspection, Normal color, Warm/dry Labs/Xrays Labs Test 12/22/24 22:34 12/22/24 21:31 Range/Units Troponin I High Sensitivity 4 </=54 ng/L White Blood Count 11.0 H 4.4-10.8 10^3/uL Red Blood Count 5.50 4.5-5.90 10^6/uL Hemoglobin 16.2 13.5-17.5 g/dL Hematocrit 47.9 41.0-53.0 % Mean Corpuscular Volume 87.1 80.0-100.0 fL Mean Corpuscular Hemoglobin 29.4 28.0-32.0 pg Mean Corpuscular Hemoglobin Concent 33.7 32.0-36.0 g/dL Red Cell Distribution Width 14.7 H 11.8-14.3 % Platelet Count 225 140-450 10^3/uL Mean Platelet Volume 8.4 6.9-10.8 fL Neutrophils (%) (Auto) 52.0 37.0-80.0 % Lymphocytes (%) (Auto) 36.4 10.0-50.0 % Monocytes (%) (Auto) 7.1 0.0-12.0 % Eosinophils (%) (Auto) 3.4 0.0-7.0 % Basophils (%) (Auto) 1.1 0.0-2.0 % Neutrophils # (Auto) 5.7 1.6-8.6 10 ^3/uL Lymphocytes # (Auto) 4.0 0.4-5.4 10 ^3/uL Monocytes # (Auto) 0.8 0-1.3 10 ^3/uL Eosinophils # (Auto) 0.4 0-0.8 10 ^3/uL Basophils # (Auto) 0.1 0-0.2 10 ^3/uL Nucleated Red Blood Cells 0.1 % Sodium Level 138 136-145 mmol/L Potassium Level 4.1 3.5-5.1 mmol/L Chloride Level 108 H 98-107 mmol/L Carbon Dioxide Level 22 20-31 mmol/L Anion Gap 8 5-15 Blood Urea Nitrogen 15 9-23 mg/dL Creatinine 0.98 0.700-1.30 mg/dL Glomerular Filtration Rate Calc 86 >90 mL/min BUN/Creatinine Ratio 15.3 10.0-20.0 Serum Glucose 118 H 74-106 mg/dL Calcium Level 9.7 8.7-10.4 mg/dL Assessment/Plan Problem List: (1) Right sided weakness (2) CVA (cerebral vascular accident) Plan This is a 64 yo male with a known history of hypertension, CVA who presents to the hospital with right sided weakness, headaches, difficulty speaking worsening. 1. Rule out acute CVA 2. Hypertension Plan admit telemetry Cardiology consultation , 2D echocardiogram Neurology consultation MRI brain wo ASA, Statin Lipid panel, A1C level PT evaluation CM consultation Fall precautions Discussed all above with patient who verbalizes agreement and understanding of care plan. All questions were answered. Discussed assessment and care plan with supervising MD. Plan discussed with: Patient, Other Code Visit Code Visit Total Time (mins): 45 Additional Comments Additional Comments Additional Comments 54-year-old male with a known history of brain aneurysm, previous history of CVA with a probably right-sided deficit presented to the hospital with a right-sided weakness numbness blurry vision found to have 1. Hypertensive urgency 2. Right-sided weakness ruled out acute stroke 3. Previous history of CVA with a probably underlying right-sided deficit 4. History of brain aneurysm 5. Poor historian -MRI brain noncontrast, neurology consultation, continue aspirin statin PATRICIA NEVES [employer]ENT Dec 23, 2024 01:03 NATHAN SWEET MD Dec 23, 2024 16:35
[2024-12-23 01:57] LABS: Triglycerides 105 mg/dL (< 150)
[2024-12-23 01:59] LABS: Cholesterol 158 mg/dL (< 200); HDL Cholesterol 44 mg/dL (40-59)
[2024-12-23 02:05] LABS: LDL Cholesterol 106 mg/dL (< 100)
[2024-12-23] MEDS: IOHEXOL 350 MG/ML 100ML IJ ONE ×2 (07:59→08:27)
--- NOTE | 2024-12-23 08:04 | DVH ---
EXAMINATION: MRI BRAIN HEAD WO CONTRAST INDICATION: headaches, right sided weakness, numbness COMPARISON: CT scan of the head performed on 12/1924 TECHNIQUE: Multiplanar, multisequence magnetic resonance imaging of the brain was performed without the use of i ntravenous contrast. FINDINGS: No evidence of acute or remote infarct. No intracranial hemorrhage. No mass effect. There is moderate periventricular/deep white matter T2/FLAIR hyperintensity is nonspecific, but most commonly associated with chronic microvascular disease. Encephalomalacia in the left frontal and parietal lobe. The ventricles and sulci are normal in size for age. Clear basal cisterns. Flow voids in the major intracranial vessels are maintained. No abnormality of the orbits. Mild mucosal thickening of the right maxillary sinus. No abnormality of the visualized osseous structures and extracranial soft tissues. IMPRESSION: 1. No acute infarct, intracranial hemorrhage, mass effect, or hydrocephalus.
[2024-12-23 08:46] VITALS: PULSE 66; RESP 16; O2SAT 95
--- NOTE | 2024-12-23 09:01 | DVH ---
CLINICAL INFORMATION: 64 years old, Male; right sided weakness, numbness, slurred speech. TECHNIQUE: Axial CTA images of the head and neck were obtained after the uneventful administration o f 100 mL Omnipaque 350 IV contrast. Coronal and sagittal reformatted images and MIP images were obtai olya, reviewed, and stored. Measurements of carotid stenosis are made per NASCET criteria. All CT scan s at this medical facility are performed using dose modulation techniques as appropriate to a perform ed exam including the following: Automated exposure control was utilized; adjustment of the MA and/or KV according to patient size; and use of iterative reconstruction technique. CTDIvol = 33.64 mGy DLP = 1159.05 mGy-cm COMPARISON: None FINDINGS: CTA HEAD: Posterior cerebral arteries, basilar artery, and intracranial segments of the distal verteb ral arteries are normal in caliber and course with no evidence of aneurysm, large vessel occlusion, s ignificant stenosis, or vascular malformation. Large portions of the anterior cerebral arteries and a djacent portions of the bilateral frontal lobes are excluded from the [id number] of the exam. Smal l portions of the bilateral middle cerebral arteries are excluded from the [id number] of the exam. Visualized portions of the anterior cerebral arteries and middle cerebral arteries are patent. The intracranial segments of the distal internal carotid arteries are normal in caliber and course with no evidence of aneurysm, large vessel occlusion, significant stenosis, or vascular malformation. CTA NECK: Normal configuration of the aortic arch with patent origins of the brachiocephalic artery, left common carotid artery, and left subclavian artery. Subclavian arteries are patent with no signif icant stenosis. Mild atherosclerotic calcification of the right carotid bifurcation without significa nt stenosis. The bilateral common carotid, internal carotid, and external carotid arteries are otherw ise patent with no significant stenosis or evidence of dissection. Vertebral arteries are patent with no significant stenosis or evidence of dissection. Multilevel moderate degenerative disc disease in the cervical spine disc space narrowing, endplate sclerosis, and endplate spurring. Multilevel facet and uncinate hypertrophy in the cervical spine with areas of moderate neural foraminal stenosis. IMPRESSION: 1. Large portions of the anterior cerebral arteries small portions of the middle cerebral arteries ar e excluded from the [id number] of the exam, limiting evaluation. Visualized portions of the anteri or and middle cerebral arteries are patent. 2. CTA head otherwise demonstrates no evidence of large vessel occlusion, aneurysm, or significant st enosis. 3. CTA neck demonstrates no evidence of carotid or vertebral dissection or significant stenosis. 4. Additional findings as detailed above.
[2024-12-23 09:08] VITALS: PULSE 66; RESP 16; O2SAT 95
--- NOTE | 2024-12-23 09:43 | DVHINCON2 ---
Date of service: Dec 23, 2024 Referring Physician Evelio Reason for Consultation Right-sided weakness, numbness, difficulty speech History of Present Illness Mr. Ramirez is a 64 years old gentleman with a history of hypertension, brain aneurysm, he came to the hospital on 12/22/24 with a chief complaint of elevated blood pressure. At that time, he was alert, but is only oriented to person and place, poor historian. I saw him on 03/17/18 for possible stroke/speech problem (positive MRI), 04/08/2018 for stroke He has a history of stroke, brain aneurysm, with residual right-sided weakness, he came to the hospital on 12/22/2024 because his blood pressure was more than 200/? mmHg, thinks the right-sided weakness was worsened as well He remembers having brain aneurysm and strokes previous, but he does not remember the time of the strokes/brain aneurysm, and the detailed history In the stroke on 03/2018, the patient developed speech difficulty where he could only mumble, he also had weakness and numbness in the right arm, the MRI scan at that time was positive for acute stroke I have reviewed her CT brain scan without contrast obtained on 04/08/18, which showed evidence of chronic infarcts in the left hemisphere CBC, 12/22/2024: Unremarkable BMP, 12/22/2024: Unremarkable TG/HDL/LDL/HDL, 12/22/2024: 105/158/106/24 Vitamin B12, 04/2018:524 Folic acid, 03/2018:14.35 TG, 04/2018:0.86 Carotid Doppler, 03/18/18: Unremarkable Echocardiogram, 03/1617: Unremarkable CT head, 04/08/18: 1. No intracranial hemorrhage, mass effect or midline shift. 2. New area of hypoattenuation in the left parietal lobe which could represent recent infarct. Recommend MRI brain for further evaluation. 3. Mild generalized atrophy. Mild microangiopathic ischemic change. Chronic infarct in the left lentiform nucleus, coronal radiata and sub insular region. 4. Intracranial atherosclerosis. CTA head, neck, 12/23/2024: 1. Large portions of the anterior cerebral arteries small portions of the middle cerebral arteries are excluded from the [id number]-[id number] of the exam, limiting evaluation. Visualized portions of the anterior and middle cerebral arteries are patent. 2. CTA head otherwise demonstrates no evidence of large vessel occlusion, aneurysm, or significant stenosis. 3. CTA neck demonstrates no evidence of carotid or vertebral dissection or significant stenosis. 4. Additional findings as detailed above MRI brain, 03/18/18: 1. Acute patchy infarct with restriction in the left parietal lobe. 2. Old slit-like hemorrhagic infarct in the left lentiform nucleus, extending to the adjacent left jerome radiata, associated with Wallerian degeneration of the left mid brain. 3. Mild cerebral atrophy. 4. Minimal FLAIR/T2 hyperintensities at the periventricular/subcortical deep white matters, likely microvascular ischemic changes MRI head 04/09/18: 1. Interval enlargement of recent infarcts in the left posterior frontal and parietal lobes with hemorrhagic conversion. 2. Old hemorrhagic infarct in the left lentiform nucleus/jerome radiata. 3. Mild generalized atrophy. Mild chronic microvascular ischemic changes MRI head, 12/23/2024: No acute infarct, intracranial hemorrhage, mass effect, or hydrocephalus.(Encephalomalacia in the left frontal and parietal lobe) Past Medical History Hypertension, brain aneurysm Past Surgical History Appendectomy Family History: Patient reports no known family medical history. Family History Anxiety, Social History He smokes slightly, but no history of alcohol or recreational substance abuse, he is homeless Allergies: Coded Allergies: NO KNOWN ALLERGIES (Unverified , 02/17/18) Home Meds Reported Medications Cyclobenzaprine Hcl (Cyclobenzaprine Hcl) 10 Mg Tab, 10 MG PO 03/18/18 Acetaminophen W/ Codeine (Tylenol/Codeine #3) #3 Tab, PO Q6HPRN 03/18/18 Ibuprofen Micronized (Ibuprofen) 800 Mg Tab, 800 MG PO 03/18/18 Lisinopril (Lisinopril) 5 Mg Tab, 5 MG PO DAILY 03/18/18 Nifedipine (Nifedipine Er) 60 Mg Tab, 60 MG PO DAILY 03/18/18 Current Medications Current Medications Medications (Trade) Dose Ordered Sig/Mary Route PRN Reason Start Time Stop Time Status Last Admin Ondansetron HCl (Zofran) 4 mg Q6HPRN PRN IV NAUSEA / VOMITING 12/23/24 00:45 Aspirin 81 mg DAILY PO 12/23/24 10:00 Atorvastatin Calcium (Lipitor) 40 mg HS PO 12/23/24 22:00 Acetaminophen (Tylenol Tablet) 650 mg Q6HPRN PRN PO PAIN SCALE 1-3 OR TEMP>100.4 12/23/24 00:45 Famotidine (Pepcid Tablet) 20 mg BID PO 12/23/24 10:00 Review of Systems As above, the other systems are negative Vital Signs Vital Signs Date Time Temp Pulse Resp B/P (MAP) Pulse Ox O2 Delivery O2 Flow Rate FiO2 12/23/24 09:08 66 16 95 Room Air* 0 21 12/23/24 08:46 182/104 (130) 12/22/24 20:18 98.4 Physical Exam GENERAL EXAM: General: the patient is well developed and nourished. No acute distress. HEENT: Normocephalic, neck is supple, no carotid bruits. No mass. RESPIRATORY: Normal respiratory effort with symmetrical lung expansion. Lungs clear to auscultation. CARDIOVASCULAR: Regular rate and rhythm with no murmurs. S1, S2. ABDOMEN: Soft, nontender, normal bowel sound NEUROLOGICAL: MENTAL STATUS: Awake and alert. Oriented to person, place, social appropriate SPEECH, LANGUAGE, HIGHER CORTICAL FUNCTION: He may have expressive aphasia, he has slurry speech CRANIAL NERVES: #2: Intact visual grissom to confrontation. The optic discs were sharp. #3,4,6: Pupils are equal, round and reactive. EOMs full and conjugate. No nystagmus. #5: Facial sensation intact in all three divisions bilaterally. Mandibular strength intact. #7: Questionable right facial muscle weakness of upper motor neuron pattern. #8: Hearing grossly normal to voice. #9,10: Uvula and soft palate rise in the midline. Swallow and voice are normal. #11: Trapezius and sternomastoid strength intact bilaterally. #12: Tongue midline. No fasciculations or atrophy. SENSATION: Sensation to touch and pinprick is normal. MOTOR: Normal tone in the upper and lower extremity. Normal muscle bulk. No fasciculations. No abnormal movements or posturing. Muscle strength of the major groups in the left extremities is 5/5, right extremities is: Upper extremity: 4/5 except grippin/5, lower extremity: 4/5 REFLEXES: Deep tendon reflexes are symmetrical. No pathological reflexes. CEREBELLAR/COORDINATION: Finger to nose test is normal in the right upper extremity GAIT/STATION: deferred. Labs/Diagnostic Data Labs Test 12/22/24 22:34 12/22/24 21:31 Range/Units Troponin I High Sensitivity 4 </=54 ng/L White Blood Count 11.0 H 4.4-10.8 10^3/uL Red Blood Count 5.50 4.5-5.90 10^6/uL Hemoglobin 16.2 13.5-17.5 g/dL Hematocrit 47.9 41.0-53.0 % Mean Corpuscular Volume 87.1 80.0-100.0 fL Mean Corpuscular Hemoglobin 29.4 28.0-32.0 pg Mean Corpuscular Hemoglobin Concent 33.7 32.0-36.0 g/dL Red Cell Distribution Width 14.7 H 11.8-14.3 % Platelet Count 225 140-450 10^3/uL Mean Platelet Volume 8.4 6.9-10.8 fL Neutrophils (%) (Auto) 52.0 37.0-80.0 % Lymphocytes (%) (Auto) 36.4 10.0-50.0 % Monocytes (%) (Auto) 7.1 0.0-12.0 % Eosinophils (%) (Auto) 3.4 0.0-7.0 % Basophils (%) (Auto) 1.1 0.0-2.0 % Neutrophils # (Auto) 5.7 1.6-8.6 10 ^3/uL Lymphocytes # (Auto) 4.0 0.4-5.4 10 ^3/uL Monocytes # (Auto) 0.8 0-1.3 10 ^3/uL Eosinophils # (Auto) 0.4 0-0.8 10 ^3/uL Basophils # (Auto) 0.1 0-0.2 10 ^3/uL Nucleated Red Blood Cells 0.1 % Sodium Level 138 136-145 mmol/L Potassium Level 4.1 3.5-5.1 mmol/L Chloride Level 108 H 98-107 mmol/L Carbon Dioxide Level 22 20-31 mmol/L Anion Gap 8 5-15 Blood Urea Nitrogen 15 9-23 mg/dL Creatinine 0.98 0.700-1.30 mg/dL Glomerular Filtration Rate Calc 86 >90 mL/min BUN/Creatinine Ratio 15.3 10.0-20.0 Serum Glucose 118 H 74-106 mg/dL Hemoglobin A1c 5.6 <5.7 % A1C Calcium Level 9.7 8.7-10.4 mg/dL Triglycerides Level 105 < 150 mg/dL Cholesterol Level 158 < 200 mg/dL LDL Cholesterol 106 H < 100 mg/dL HDL Cholesterol 44 40-59 mg/dL Assessment Uncontrolled hypertension Chronic strokes History of brain aneurysm Right hemiparesis Cognitive dysfunction Vascular dementia ? Encephalopathy Plan/Recommendation Monitoring Supportive treatment UDS EEG Aspirin 81 mg daily Lipitor 20 mg daily Social service More recommendation per clinical course Progress: Poor This medical document was created using an electronic medical record system with [employer] dictation system. Although this document has been carefully reviewed, there may still be some phonetic and typographical errors. These areas are purely typographical due to imperfections of the software programs, and do not reflect any compromise in the patient's medical care. Plan discussed with: Patient, Other XUAN PADILLA MD Dec 23, 2024 09:43
[2024-12-23] MEDS: FAMOTIDINE 20 MG TAB PO SCH (10:12)
[2024-12-23] MEDS: ASPirin 81 mg TAB PO SCH (10:12)
[2024-12-23 12:28] LABS: Urine Bacteria None Seen /hpf (None Seen)
[2024-12-23 13:04] LABS: Urine Blood Negative /uL (Negative); Urine Clarity Clear (Clear); Urine Color Colorless (Yellow); Urine Protein, UAD Negative (Negative); Urine Squamous Epithelial Cell None Seen /hpf (<5); Urine Urobilinogen Normal (Negative); Urine pH 6.5 (5.0-9.0)
[2024-12-23 13:26] LABS: Amphetamine Screen, Urine Neg (NEGATIVE); Barbiturate Scree,Urine Neg (NEGATIVE); Benzodiazephine Screen, Urine Neg (NEGATIVE); Cannabinoid Screen, Urine Neg (NEGATIVE); Cocaine Screen, Urine Neg (NEGATIVE); Opiate Scree,Urine Neg (NEGATIVE); Phencyclidine Screen, Urine Neg (NEGATIVE)
--- NOTE | 2024-12-23 15:36 | DVHSR ---
APPROVED REPORT EXAM: LIMITED Two-dimensional and M-mode echocardiogram with Doppler and color Doppler. Blood Pressure: 167/109 mmHg INDICATION CVA/TIA: RISK FACTORS Obesity: Height: 5'11, Weight: 220 DIMENSIONS LVDd4.0 (3.8-5.7cm)LA (2D)3.6 (1.9-4.0cm)Aortic Root3.9 (2.0-3.7cm) LVDs2.8 (2.5-4.0cm)LA (MM) (1.9-4.0cm)Aortic Cusp Exc2.0 (1.5-2.0cm) EF (%) 60.0 (55-70%)Rt. Atrium3.8 (1.9-4.0cm)Asc. Aorta3.9 cm IVSd1.0 (0.7-1.1cm)RV (D)5.0 (1.8-2.4cm) PWd0.9 (0.7-1.1cm) Mitral Valve MitralMitral Stenosis E wave0.55m/sMV Mean GR.mmHg A wave1.05m/sMV Peak GR.mmHg E/A ratio0.52D MVAcm2 DECEL [id number] 1/2 Timems Aortic Valve Aortic ValveAortic Stenosis V11.22m/Abimbola Mean GR.4mmHg V21.37m/Abimbola Peak GR.7mmHg LVOT Diameter2.4 (1.8-2.4cm)Doppler AVA4.03cm2 Pulmonic Valve V20.89m/s Other Information Quality : Technically LimitedRhythm : Technically limited study due to patient position.body habitus. Conclusion lvef 65% normal LV function normal RV function left atrium enlarged no severe valve abnormalities noted normal pericardium
--- NOTE | 2024-12-23 18:28 | DVHINCON2 ---
DATE OF CONSULTATION: 12/23/2024 REFERRING PHYSICIAN: SOCORRO Lugo CONSULTING PHYSICIAN: Dr. Portillo. INDICATION: Suspected stroke. HISTORY OF PRESENT ILLNESS: The patient is a 64-year-old male with history of prior stroke, hypertension, presented to the hospital with complaints of right sided body weakness and was also complaining of some numbness and speech difficulty. The patient at presentation was noted to have markedly elevated blood pressure systolic in the 180s to 190s. The patient denies prior history of heart disease known to him. Does give history of shortness of breath with exertion. PAST MEDICAL HISTORY: * Hypertension. * History of stroke. MEDICATIONS: Per med rec. ALLERGIES: No known drug allergies. PHYSICAL EXAMINATION: GENERAL: Alert and awake, in no form of cardiopulmonary distress. VITAL SIGNS: Blood pressure 145/83, pulse 69 per minute, saturation 96%. HEENT: No carotid bruits. No jugular venous distention. CHEST: Bilateral air entry. CARDIOVASCULAR: Precordial and carotid pulses palpable. Normal S1 and S2. Regular rate and rhythm. No appreciable gallop or rubs. EXTREMITIES: No peripheral edema. DIAGNOSTIC DATA: CBC is normal. Sodium 138, potassium 4.1, creatinine 0.9. Troponin negative x 2. Urine drug screen is negative. ASSESSMENT: * Rule out stroke. * Hypertensive urgency. * History of stroke. * Homelessness. RECOMMENDATIONS: * Continue antiplatelet. * Continue statin therapy. * Neuro evaluation in progress. * We will obtain echo to exclude cardioembolic sources. * Continue telemetry monitoring. Thank you for allowing me to partake in the care of this patient. MD ROBERTO CARLOS Chan/TRACIE/BONNIE TID: [id number] RECEIPT: [id number]
[2024-12-23 18:47] VITALS: BP 163/99; PULSE 63; RESP 20; TEMP 97.6; O2SAT 93
[2024-12-23] MEDS: ATORVASTATIN 20 MG TAB PO SCH (21:33)
[2024-12-23] MEDS ORDERED: ATORVASTATIN 20 MG TAB PO SCH (22:00)
[2024-12-23 22:15] VITALS: BP 163/79; PULSE 63; RESP 20; TEMP 97.6; O2SAT 93
[2024-12-23] MEDS ORDERED: LOSA100T33 PO (23:30)
[2024-12-24] VITALS (8 sets, daily range): BP systolic 103–140; BP diastolic 62–89; PULSE 51–60; RESP 18–20; TEMP 97.6–98.4; O2SAT 93–100
[2024-12-24] MEDS: LISINOPRIL 5 MG TAB PO ONE (00:04)
[2024-12-24] MEDS: LISINOPRIL 5 MG TAB PO SCH (13:24)
--- NOTE | 2024-12-24 16:22 | DVHPN2 ---
Subjective Patient's heart rate drops into 30s to 40s but he sleeps. Close tele monitoring overnight. 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 Medications Current Medications Medications Dose Ordered Sig/Mary Route Start Time Stop Time Status Last Admin Dose Admin Ondansetron HCl 4 mg Q6HPRN PRN IV 12/23/24 00:45 Aspirin 81 mg DAILY PO 12/23/24 10:00 12/24/24 09:55 81 MG Acetaminophen 650 mg Q6HPRN PRN PO 12/23/24 00:45 Famotidine 20 mg BID PO 12/23/24 10:00 12/24/24 09:55 20 MG Atorvastatin Calcium 20 mg HS PO 12/23/24 22:00 12/23/24 21:33 20 MG Lisinopril 5 mg DAILY PO 12/24/24 10:00 12/24/24 13:24 5 MG Laboratory Results Laboratory Tests 12/22/24 21:31 HgA1c, TSH Test 12/24/24 12:59 Thyroid Stimulating Hormone (TSH) 0.79 uIU/mL (0.55-4.78) Urinalysis Test 12/23/24 12:26 Urine Color Colorless (Yellow) Urine Clarity Clear (Clear) Urine pH 6.5 (5.0-9.0) Urine Specific [place] 1.000 (1.001-1.035) Urine Protein Negative (Negative) Urine Ketones Negative (Negative) Urine Blood Negative /uL (Negative) Urine Nitrite Negative (Negative) Urine Bilirubin Negative (Negative) Urine Urobilinogen Normal mg/dL (Negative) Urine Leukocyte Esterase Negative /uL (Negative) Urine RBC None seen /hpf (0 - 3) Urine Microscopic WBC /HPF (0-3) Urine Squamous Epithelial Cells None seen /hpf (<5) Urine Bacteria None seen /hpf (None Seen) Urine Glucose Normal mg/dL (Normal) Assessment/Plan Assessment/Plan 54-year-old male with a known history of brain aneurysm, previous history of CVA with a probably right-sided deficit presented to the hospital with a right-sided weakness numbness blurry vision found to have 1. Hypertensive urgency improved 2. Right-sided weakness ruled out acute stroke 3. Previous history of CVA 4. History of brain aneurysm 5. Poor historian 6. Bradycardia vitals sleeps -MRI brain shows no evidence of acute stroke, polyp Cardiology recommendation Monitor overnight discharge plan. Plan discussed with: Patient My Orders Orders - NATHAN SWEET MD Procedure Category Date Status Time * Personal Property Appraiser CONS 12/24/24 Transmitted Consult Basic Metabolic Panel LAB 12/24/24 Logged 15:26 Magnesium LAB 12/24/24 Logged 15:26 Date of Service: Dec 24, 2024 Billing Provider: NATHAN SWEET MD Common Visit Codes: NOT BILLABLE NATHAN SWEET MD Dec 24, 2024 16:22
[2024-12-24 17:21] LABS: Sodium 138 mmol/L (136-145)
[2024-12-24 17:22] LABS: Anion Gap 10 (5-15); Calcium 9.2 mg/dL (8.7-10.4); Carbon Dioxide 20 mmol/L (20-31)
[2024-12-24 17:27] LABS: BUN/Creatinine Ratio 14.1 (10.0-20.0); Blood Urea Nitrogen 14 mg/dL (9-23)
[2024-12-24 17:28] LABS: Chloride 108 mmol/L (98-107); Magnesium 2.1 mg/dL (1.6-2.6)
[2024-12-24 17:29] LABS: Glucose 114 mg/dL (74-106)
--- NOTE | 2024-12-24 19:24 | DVHPN2 ---
Progress Note - Dictate Date Seen: Dec 24, 2024 Medical Necessity Reason Pt with a Central, PICC or Fol: No Subjective Mr. Ramirez is a 64 years old gentleman with a history of hypertension, brain aneurysm, he came to the hospital on 12/22/24 with a chief complaint of elevated blood pressure. I saw him on 03/17/18 for possible stroke/speech problem (positive MRI), 04/08/2018 for stroke I have seen and examined the patient, I have discussed with his nurse, social service input appreciated He is alert, oriented to person, place. He does not remember our conversation, he does not remember talking to social service I have reviewed her CT brain scan without contrast obtained on 04/08/18, which showed evidence of chronic infarcts in the left hemisphere Bradycardia noticed Social service input appreciated CBC, 12/22/2024: Unremarkable BMP, 12/22/2024: Unremarkable TG/HDL/LDL/HDL, 12/22/2024: 105/158/106/24 Vitamin B12, 04/2018:524 Folic acid, 03/2018:14.35 TG, 04/2018:0.86 Carotid Doppler, 03/18/18: Unremarkable Echocardiogram, 03/1617: Unremarkable CT head, 04/08/18: 1. No intracranial hemorrhage, mass effect or midline shift. 2. New area of hypoattenuation in the left parietal lobe which could represent recent infarct. Recommend MRI brain for further evaluation. 3. Mild generalized atrophy. Mild microangiopathic ischemic change. Chronic infarct in the left lentiform nucleus, coronal radiata and sub insular region. 4. Intracranial atherosclerosis. CTA head, neck, 12/23/2024: 1. Large portions of the anterior cerebral arteries small portions of the middle cerebral arteries are excluded from the [id number] of the exam, limiting evaluation. Visualized portions of the anterior and middle cerebral arteries are patent. 2. CTA head otherwise demonstrates no evidence of large vessel occlusion, aneurysm, or significant stenosis. 3. CTA neck demonstrates no evidence of carotid or vertebral dissection or significant stenosis. 4. Additional findings as detailed above MRI brain, 03/18/18: 1. Acute patchy infarct with restriction in the left parietal lobe. 2. Old slit-like hemorrhagic infarct in the left lentiform nucleus, extending to the adjacent left jerome radiata, associated with Wallerian degeneration of the left mid brain. 3. Mild cerebral atrophy. 4. Minimal FLAIR/T2 hyperintensities at the periventricular/subcortical deep white matters, likely microvascular ischemic changes MRI head 04/09/18: 1. Interval enlargement of recent infarcts in the left posterior frontal and parietal lobes with hemorrhagic conversion. 2. Old hemorrhagic infarct in the left lentiform nucleus/jerome radiata. 3. Mild generalized atrophy. Mild chronic microvascular ischemic changes MRI head, 12/23/2024: No acute infarct, intracranial hemorrhage, mass effect, or hydrocephalus.(Encephalomalacia in the left frontal and parietal lobe) vital signs Vital Sign Date Time Temp Pulse Resp B/P (MAP) Pulse Ox O2 Delivery O2 Flow Rate FiO2 12/24/24 16:35 98.1 53 19 113/64 (80) 95 98.1 12/24/24 08:00 Room Air* 0 21 Total Intake and Output 12/23/24 12/23/24 12/24/24 15:00 23:00 07:00 Intake Total 200 ml Output Total 0 ml Balance 200 ml medications Current Medications Medications Dose Ordered Sig/Mary Route Start Time Stop Time Status Last Admin Dose Admin Ondansetron HCl 4 mg Q6HPRN PRN IV 12/23/24 00:45 Aspirin 81 mg DAILY PO 12/23/24 10:00 12/24/24 09:55 81 MG Acetaminophen 650 mg Q6HPRN PRN PO 12/23/24 00:45 Famotidine 20 mg BID PO 12/23/24 10:00 12/24/24 09:55 20 MG Atorvastatin Calcium 20 mg HS PO 12/23/24 22:00 12/23/24 21:33 20 MG Lisinopril 5 mg DAILY PO 12/24/24 10:00 12/24/24 13:24 5 MG objective General: the patient is well developed and nourished. No acute distress. MENTAL STATUS: Awake and alert. Oriented to person, place, social appropriate SPEECH, LANGUAGE, HIGHER CORTICAL FUNCTION: He may have expressive aphasia, he has slurry speech CRANIAL NERVES: Pupils are equal, round and reactive. EOMs full and conjugate. No nystagmus. Facial sensation intact in all three divisions bilaterally. Mandibular strength intact. Questionable right facial muscle weakness of upper motor neuron pattern. Hearing grossly normal to voice. SENSATION: Sensation to touch and pinprick is normal. MOTOR: Normal tone in the upper and lower extremity. Normal muscle bulk. No fasciculations. No abnormal movements or posturing. Muscle strength of the major groups in the left extremities is 5/5, right extremities is: Upper extremity: 4/5 except grippin/5, lower extremity: 4/5 REFLEXES: Deep tendon reflexes are symmetrical. No pathological reflexes. CEREBELLAR/COORDINATION: Finger to nose test is normal in the right upper extremity GAIT/STATION: deferred laboratory and microbiology Laboratory Tests 12/24/24 12:59 12/22/24 21:31 Test 12/24/24 12:59 Range/Units Serum Glucose 114 H 74-106 mg/dL Problem List Uncontrolled hypertension Chronic strokes History of brain aneurysm Right hemiparesis Cognitive dysfunction Vascular dementia ? Encephalopathy Bradycardia Assessment/Plan Monitoring Supportive treatment UDS EEG Aspirin 81 mg daily Lipitor 20 mg daily Social service on case Cardiology on case More recommendation per clinical course This medical document was created using an electronic medical record system with [employer] dictation system. Although this document has been carefully reviewed, there may still be some phonetic and typographical errors. These areas are purely typographical due to imperfections of the software programs, and do not reflect any compromise in the patient's medical care. Prognosis Poor Plan discussed with: Other XUAN PADILLA MD Dec 24, 2024 19:24
[2024-12-25] VITALS (8 sets, daily range): BP systolic 116–154; BP diastolic 63–95; PULSE 41–64; RESP 16–21; TEMP 97.7–98.2; O2SAT 92–97
--- NOTE | 2024-12-25 09:32 | ECG ---
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
--- NOTE | 2024-12-25 12:58 | DVHPN2 ---
Subjective Patient's heart rate is currently into 40s, but it drops only while he sleeps, outpatient follow up with Pulmonary for sleep study. 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 Medications Current Medications Medications Dose Ordered Sig/Mary Route Start Time Stop Time Status Last Admin Dose Admin Ondansetron HCl 4 mg Q6HPRN PRN IV 12/23/24 00:45 Aspirin 81 mg DAILY PO 12/23/24 10:00 12/25/24 10:04 81 MG Acetaminophen 650 mg Q6HPRN PRN PO 12/23/24 00:45 Famotidine 20 mg BID PO 12/23/24 10:00 12/25/24 10:04 20 MG Atorvastatin Calcium 20 mg HS PO 12/23/24 22:00 12/24/24 21:46 20 MG Lisinopril 5 mg DAILY PO 12/24/24 10:00 12/25/24 10:04 5 MG Laboratory Results Laboratory Tests 12/22/24 21:31 12/24/24 12:59 Chemistry Test 12/24/24 12:59 Calcium Level 9.2 mg/dL (8.7-10.4) Magnesium Level 2.1 mg/dL (1.6-2.6) HgA1c, TSH Test 12/24/24 12:59 Thyroid Stimulating Hormone (TSH) 0.79 uIU/mL (0.55-4.78) Urinalysis Test 12/23/24 12:26 Urine Color Colorless (Yellow) Urine Clarity Clear (Clear) Urine pH 6.5 (5.0-9.0) Urine Specific [place] 1.000 (1.001-1.035) Urine Protein Negative (Negative) Urine Ketones Negative (Negative) Urine Blood Negative /uL (Negative) Urine Nitrite Negative (Negative) Urine Bilirubin Negative (Negative) Urine Urobilinogen Normal mg/dL (Negative) Urine Leukocyte Esterase Negative /uL (Negative) Urine RBC None seen /hpf (0 - 3) Urine Microscopic WBC /HPF (0-3) Urine Squamous Epithelial Cells None seen /hpf (<5) Urine Bacteria None seen /hpf (None Seen) Urine Glucose Normal mg/dL (Normal) Assessment/Plan Assessment/Plan 54-year-old male with a known history of brain aneurysm, previous history of CVA with a probably right-sided deficit presented to the hospital with a right-sided weakness numbness blurry vision found to have 1. Hypertensive urgency improved 2. Right-sided weakness ruled out acute stroke 3. Previous history of CVA 4. History of brain aneurysm 5. Poor historian 6. Bradycardia during sleep -MRI brain shows no evidence of acute stroke, follow up Cardiology recommendation -tele monitoring, outpatient follow up for sleep study. Plan discussed with: Patient, Other My Orders Orders - NATHAN SWEET MD Procedure Category Date Status Time * Field Organizer CONS 12/24/24 Transmitted Consult Date of Service: Dec 25, 2024 Billing Provider: NATHAN SWEET MD Common Visit Codes: NOT BILLABLE NATHAN SWEET MD Dec 25, 2024 12:58
[2024-12-25] MEDS: ACETAMINOPHEN 325 MG TAB PO PRN (20:31)
[2024-12-26] VITALS (8 sets, daily range): BP systolic 106–138; BP diastolic 53–87; PULSE 47–101; RESP 15–18; TEMP 97.8–98.2; O2SAT 90–97
--- NOTE | 2024-12-26 17:14 | DVHPN2 ---
Subjective Patient's heart rate is currently into 40s, but it drops only while he sleeps, outpatient follow up with Pulmonary for sleep study. 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 Medications Current Medications Medications Dose Ordered Sig/Mary Route Start Time Stop Time Status Last Admin Dose Admin Ondansetron HCl 4 mg Q6HPRN PRN IV 12/23/24 00:45 Aspirin 81 mg DAILY PO 12/23/24 10:00 12/26/24 11:02 81 MG Acetaminophen 650 mg Q6HPRN PRN PO 12/23/24 00:45 12/25/24 20:31 650 MG Famotidine 20 mg BID PO 12/23/24 10:00 12/26/24 11:02 20 MG Atorvastatin Calcium 20 mg HS PO 12/23/24 22:00 12/25/24 20:31 20 MG Lisinopril 5 mg DAILY PO 12/24/24 10:00 12/26/24 11:02 5 MG Laboratory Results Laboratory Tests 12/22/24 21:31 12/24/24 12:59 Urinalysis Test 12/23/24 12:26 Urine Color Colorless (Yellow) Urine Clarity Clear (Clear) Urine pH 6.5 (5.0-9.0) Urine Specific [place] 1.000 (1.001-1.035) Urine Protein Negative (Negative) Urine Ketones Negative (Negative) Urine Blood Negative /uL (Negative) Urine Nitrite Negative (Negative) Urine Bilirubin Negative (Negative) Urine Urobilinogen Normal mg/dL (Negative) Urine Leukocyte Esterase Negative /uL (Negative) Urine RBC None seen /hpf (0 - 3) Urine Microscopic WBC /HPF (0-3) Urine Squamous Epithelial Cells None seen /hpf (<5) Urine Bacteria None seen /hpf (None Seen) Urine Glucose Normal mg/dL (Normal) Assessment/Plan Assessment/Plan 54-year-old male with a known history of brain aneurysm, previous history of CVA with a probably right-sided deficit presented to the hospital with a right-sided weakness numbness blurry vision found to have 1. Hypertensive urgency improved 2. Right-sided weakness ruled out acute stroke 3. Previous history of CVA 4. History of brain aneurysm 5. Poor historian 6. Bradycardia during sleep -MRI brain shows no evidence of acute stroke, follow up Cardiology recommendation -tele monitoring, outpatient follow up for sleep study. -discharge plan. 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 Plan discussed with: Patient, Other Date of Service: Dec 26, 2024 Billing Provider: NATHAN SWEET MD Common Visit Codes: NOT BILLABLE NATHAN SWEET MD Dec 26, 2024 17:14
--- NOTE | 2024-12-26 23:01 | DVHPN2 ---
Progress Note - Dictate Date Seen: Dec 26, 2024 Medical Necessity Reason Pt with a Central, PICC or Fol: No Subjective Mr. Ramirez is a 64 years old gentleman with a history of hypertension, brain aneurysm, he came to the hospital on 12/22/24 with a chief complaint of elevated blood pressure. I saw him on 03/17/18 for possible stroke/speech problem (positive MRI), 04/08/2018 for stroke I have seen and examined the patient, I have discussed with his nurse. Oriented to person and place, good social skills CBC, 12/22/2024: Unremarkable BMP, 12/22/2024: Unremarkable TG/HDL/LDL/HDL, 12/22/2024: 105/158/106/24 Vitamin B12, 04/2018:524 Folic acid, 03/2018:14.35 TG, 04/2018:0.86 EEG, 12/26/2024: Normal Carotid Doppler, 03/18/18: Unremarkable Echocardiogram, 03/1617: Unremarkable CT head, 04/08/18: 1. No intracranial hemorrhage, mass effect or midline shift. 2. New area of hypoattenuation in the left parietal lobe which could represent recent infarct. Recommend MRI brain for further evaluation. 3. Mild generalized atrophy. Mild microangiopathic ischemic change. Chronic infarct in the left lentiform nucleus, coronal radiata and sub insular region. 4. Intracranial atherosclerosis. CTA head, neck, 12/23/2024: 1. Large portions of the anterior cerebral arteries small portions of the middle cerebral arteries are excluded from the [id number] of the exam, limiting evaluation. Visualized portions of the anterior and middle cerebral arteries are patent. 2. CTA head otherwise demonstrates no evidence of large vessel occlusion, aneurysm, or significant stenosis. 3. CTA neck demonstrates no evidence of carotid or vertebral dissection or significant stenosis. 4. Additional findings as detailed above MRI brain, 03/18/18: 1. Acute patchy infarct with restriction in the left parietal lobe. 2. Old slit-like hemorrhagic infarct in the left lentiform nucleus, extending to the adjacent left jerome radiata, associated with Wallerian degeneration of the left mid brain. 3. Mild cerebral atrophy. 4. Minimal FLAIR/T2 hyperintensities at the periventricular/subcortical deep white matters, likely microvascular ischemic changes MRI head 04/09/18: 1. Interval enlargement of recent infarcts in the left posterior frontal and parietal lobes with hemorrhagic conversion. 2. Old hemorrhagic infarct in the left lentiform nucleus/jerome radiata. 3. Mild generalized atrophy. Mild chronic microvascular ischemic changes MRI head, 12/23/2024: No acute infarct, intracranial hemorrhage, mass effect, or hydrocephalus.(Encephalomalacia in the left frontal and parietal lobe) vital signs Vital Sign Date Time Temp Pulse Resp B/P (MAP) Pulse Ox O2 Delivery O2 Flow Rate FiO2 12/26/24 21:00 97.8 56 18 116/75 (89) 94 97.8 12/26/24 08:00 Room Air* 0 21 Total Intake and Output 12/25/24 12/25/24 12/26/24 15:00 23:00 07:00 Intake Total 698 ml 100 ml Balance 698 ml 100 ml medications Current Medications Medications Dose Ordered Sig/Mary Route Start Time Stop Time Status Last Admin Dose Admin Ondansetron HCl 4 mg Q6HPRN PRN IV 12/23/24 00:45 Aspirin 81 mg DAILY PO 12/23/24 10:00 12/26/24 11:02 81 MG Acetaminophen 650 mg Q6HPRN PRN PO 12/23/24 00:45 12/26/24 20:55 650 MG Famotidine 20 mg BID PO 12/23/24 10:00 12/26/24 20:54 20 MG Atorvastatin Calcium 20 mg HS PO 12/23/24 22:00 12/26/24 20:55 20 MG Lisinopril 5 mg DAILY PO 12/24/24 10:00 12/26/24 11:02 5 MG objective General: the patient is well developed and nourished. No acute distress. MENTAL STATUS: Awake and alert. Oriented to person, place, social appropriate SPEECH, LANGUAGE, HIGHER CORTICAL FUNCTION: He may have expressive aphasia, he has slurry speech CRANIAL NERVES: Pupils are equal, round and reactive. EOMs full and conjugate. No nystagmus. Facial sensation intact in all three divisions bilaterally. Mandibular strength intact. Questionable right facial muscle weakness of upper motor neuron pattern. Hearing grossly normal to voice. SENSATION: Sensation to touch and pinprick is normal. MOTOR: Normal tone in the upper and lower extremity. Normal muscle bulk. No fasciculations. No abnormal movements or posturing. Muscle strength of the major groups in the left extremities is 5/5, right extremities is: Upper extremity: 4/5 except grippin/5, lower extremity: 4/5 REFLEXES: Deep tendon reflexes are symmetrical. No pathological reflexes. CEREBELLAR/COORDINATION: Finger to nose test is normal in the right upper extremity GAIT/STATION: deferred laboratory and microbiology Laboratory Tests 12/24/24 12:59 12/22/24 21:31 Test 12/24/24 12:59 Range/Units Serum Glucose 114 H 74-106 mg/dL Problem List Uncontrolled hypertension Chronic strokes History of brain aneurysm Right hemiparesis Cognitive dysfunction Vascular dementia ? Encephalopathy Bradycardia Assessment/Plan Monitoring Supportive treatment UDS Aspirin 81 mg daily Lipitor 20 mg daily Social service on case Cardiology on case More recommendation per clinical course This medical document was created using an electronic medical record system with [employer] dictation system. Although this document has been carefully reviewed, there may still be some phonetic and typographical errors. These areas are purely typographical due to imperfections of the software programs, and do not reflect any compromise in the patient's medical care. Prognosis poor Dietary Evaluation Review Comments: 1) Continue to encourage good PO intake 2) Emphasize importance of reducing sodium intake 3) Follow-up with cardiology 4) Contine plan of care Expected Outcomes/Goals: 1) appetite and labs to improve 2) f/u in 5 days Plan discussed with: Other XUAN PADILLA MD Dec 26, 2024 23:01
--- NOTE | 2024-12-26 23:03 | DVHEEG2 ---
Neurology EEG Procedural Note Procedural Note EXAM DATE: 12/26/24 REFERRING DOCTOR: Dr. Padilla TECHNIQUE: Eighteen channels of EEG, 2 channels of EOG, and 1 channel of EKG were recorded using the International 10/20 system. CLINICAL DATA: The patient was referred for an EEG evaluation for the evidence of seizure disorder. MEDICATIONS: See chart BACKGROUND ACTIVITY: He slept through the recording, during brief arousals, the background activity consisted of well regulated 10Hz rhythmic waveforms, symmetrically distributed over both posterior quadrants and was reactive to eye opening. ACTIVATION: Hyperventilation: Not done Photic Stimulation: Not done Sleep: Noticed IMPRESSION: This is a normal EEG. No focal, lateralized, or epileptiform features are noted. If clinically indicated to rule out a seizure disorder, recommend repeat EEG with sleep deprivation. The EKG channel showed a regular heart rate of 54 per [place] [address] XUAN PADILLA MD Dec 26, 2024 23:03
[2024-12-27] VITALS (8 sets, daily range): BP systolic 114–148; BP diastolic 61–96; PULSE 40–94; RESP 15–19; TEMP 97.1–98.3; O2SAT 91–97
--- NOTE | 2024-12-27 16:26 | DVHDS2 ---
Discharge Summary Date of Admission Dec 23, 2024 at 00:41 Date of Discharge: Dec 27, 2024 Labs/Diagnostic Data: Laboratory Results Test 12/24/24 12:59 12/23/24 12:26 12/22/24 22:34 12/22/24 21:31 Sodium Level 138 mmol/L (136-145) Potassium Level 4.0 mmol/L (3.5-5.1) Chloride Level 108 mmol/L (98-107) Carbon Dioxide Level 20 mmol/L (20-31) Anion Gap 10 (5-15) Blood Urea Nitrogen 14 mg/dL (9-23) Creatinine 0.99 mg/dL (0.700-1.30) Glomerular Filtration Rate Calc 85 mL/min (>90) BUN/Creatinine Ratio 14.1 (10.0-20.0) Serum Glucose 114 mg/dL (74-106) Calcium Level 9.2 mg/dL (8.7-10.4) Magnesium Level 2.1 mg/dL (1.6-2.6) Thyroid Stimulating Hormone (TSH) 0.79 uIU/mL (0.55-4.78) Urine Color Colorless (Yellow) Urine Clarity Clear (Clear) Urine pH 6.5 (5.0-9.0) Urine Specific [place] 1.000 (1.001-1.035) Urine Protein Negative (Negative) Urine Ketones Negative (Negative) Urine Blood Negative /uL (Negative) Urine Nitrite Negative (Negative) Urine Bilirubin Negative (Negative) Urine Urobilinogen Normal mg/dL (Negative) Urine Leukocyte Esterase Negative /uL (Negative) Urine RBC None seen /hpf (0 - 3) Urine Microscopic WBC /HPF (0-3) Urine Squamous Epithelial Cells None seen /hpf (<5) Urine Bacteria None seen /hpf (None Seen) Urine Glucose Normal mg/dL (Normal) Urine Opiates Screen Neg (NEGATIVE) Urine Fentanyl Screen Neg (NEGATIVE) Urine Barbiturates Screen Neg (NEGATIVE) Urine Phencyclidine Screen Neg (NEGATIVE) Urine Amphetamines Screen Neg (NEGATIVE) Urine Benzodiazepines Screen Neg (NEGATIVE) Urine Cocaine Screen Neg (NEGATIVE) Urine Cannabinoids Screen Neg (NEGATIVE) Troponin I High Sensitivity 4 ng/L (</=54) White Blood Count 11.0 10^3/uL (4.4-10.8) Red Blood Count 5.50 10^6/uL (4.5-5.90) Hemoglobin 16.2 g/dL (13.5-17.5) Hematocrit 47.9 % (41.0-53.0) Mean Corpuscular Volume 87.1 fL (80.0-100.0) Mean Corpuscular Hemoglobin 29.4 pg (28.0-32.0) Mean Corpuscular Hemoglobin Concent 33.7 g/dL (32.0-36.0) Red Cell Distribution Width 14.7 % (11.8-14.3) Platelet Count 225 10^3/uL (140-450) Mean Platelet Volume 8.4 fL (6.9-10.8) Neutrophils (%) (Auto) 52.0 % (37.0-80.0) Lymphocytes (%) (Auto) 36.4 % (10.0-50.0) Monocytes (%) (Auto) 7.1 % (0.0-12.0) Eosinophils (%) (Auto) 3.4 % (0.0-7.0) Basophils (%) (Auto) 1.1 % (0.0-2.0) Neutrophils # (Auto) 5.7 10 ^3/uL (1.6-8.6) Lymphocytes # (Auto) 4.0 10 ^3/uL (0.4-5.4) Monocytes # (Auto) 0.8 10 ^3/uL (0-1.3) Eosinophils # (Auto) 0.4 10 ^3/uL (0-0.8) Basophils # (Auto) 0.1 10 ^3/uL (0-0.2) Nucleated Red Blood Cells 0.1 % Hemoglobin A1c 5.6 % A1C (<5.7) Triglycerides Level 105 mg/dL (< 150) Cholesterol Level 158 mg/dL (< 200) LDL Cholesterol 106 mg/dL (< 100) HDL Cholesterol 44 mg/dL (40-59) Other Laboratory Tests 12/24/24 12:59 12/22/24 21:31 Brief Hx & Hospital Course: 54-year-old male with a known history of brain aneurysm, previous history of CVA with a probably right-sided deficit presented to the hospital with a right-sided weakness numbness blurry vision found to have hypertensive urgency. Patient also had right-sided weakness with a previous history of CVA. Patient was MRI brain shows no evidence of any acute infarct. Patient does have history of brain aneurysm. Patient stated that he has no place to go. Patient was to be discharged to custodial once arranges by aircraft manager . Patient was to follow up as an outpatient with the Pulmonary for sleep apnea has been as Cardiology for bradycardia. Condition at Discharge: Stable Final Diagnosis/Problems List 54-year-old male with a known history of brain aneurysm, previous history of CVA with a probably right-sided deficit presented to the hospital with a right-sided weakness numbness blurry vision found to have 1. Hypertensive urgency improved 2. Right-sided weakness ruled out acute stroke 3. Previous history of CVA 4. History of brain aneurysm 5. Poor historian 6. Bradycardia during sleep Discharge Disposition: [facility] Discharge Will this Physician continue t: No Discharge Instruct/Medications Diet: Cardiac 2g Na,low cholest Activity: No Restrictions, As Tolerated Follow Up/Referral: Follow up with the PCP in 1-2 weeks Medications: Resume home medications Discharge Statement: "Patient was advised to return to the ER or call 911 if any headaches, dizziness, shortness of breath, chest pain, abdominal pain, bleeding, fevers, or worsening of medical condition. Patient was counseled about treatment plan, medications, possible side effects, patientverbalized understanding. All questions were answered to the best of my ability. This discharge took greater then 30 minutes in planning, reviewing documentation, counseling the patient, and discussing with other team members." ASSESSMENT ASSESSMENT Assessment 54-year-old male with a known history of brain aneurysm, previous history of CVA with a probably right-sided deficit presented to the hospital with a right-sided weakness numbness blurry vision found to have 1. Hypertensive urgency improved 2. Right-sided weakness ruled out acute stroke 3. Previous history of CVA 4. History of brain aneurysm 5. Poor historian 6. Bradycardia during sleep Date of Service: Dec 27, 2024 Billing Provider: NATHAN SWEET MD Common Visit Codes: 01750-GBQ/OBS DISCH DAY >30min NATHAN SWEET MD Dec 27, 2024 16:26
[2024-12-28 01:00] VITALS: BP 123/80; PULSE 50; RESP 18; TEMP 97.8; O2SAT 96
[2024-12-28 05:00] VITALS: BP 117/87; PULSE 55; RESP 18; TEMP 97.3; O2SAT 98
[2024-12-28 08:00] VITALS: PULSE 48
[2024-12-28 08:26] VITALS: BP 132/76; PULSE 54; RESP 22; TEMP 97.4; O2SAT 97
[2024-12-28 12:20] VITALS: BP 134/83; PULSE 63; RESP 22; TEMP 98.6; O2SAT 98
[2024-12-28 16:40] VITALS: BP 130/40; PULSE 50; RESP 20; TEMP 98.4; O2SAT 97
== END 2024-12-28 17:30 | disposition home or self-care (01) | DRG 199 ==
LOC: EDUNIT# 20:18 → EDBD 20:18 → ER 20:18 → OVERFLOW 12-23 00:41 → TELE-EAST 12-23 22:10
PROVIDERS: ADMIT Internal Medicine; ATTEND Internal Medicine
DX: I16.1 Hypertensive emergency (principal); I67.4 Hypertensive encephalopathy; F01.50 Vascular dementia, unspecified severity, without behavioral disturbance, psychotic disturbance, mood disturbance, and anxiety; G93.89 Other specified disorders of brain; I69.351 Hemiplegia and hemiparesis following cerebral infarction affecting right dominant side; I10 Essential (primary) hypertension; F17.210 Nicotine dependence, cigarettes, uncomplicated; Z79.82 Long term (current) use of aspirin; Z59.00 Homelessness unspecified; Z79.899 Other long term (current) drug therapy; Z90.49 Acquired absence of other specified parts of digestive tract
CPT/HCPCS: 36415; 70450; 70496; 70498; 70551; 71045; 80048; 80061; 80307; 81001; 83036; 83735; 84443; 84484; 85025; 93005; 93306; 95819; 97110; 97116; 97163; 97530; G0378

== ENCOUNTER 2025-01-13 17:33 | Inpatient (IN) | payer MEDICAID ==
[~2025-01-13] VITALS: Ht 182.9 cm; Wt 104.7 kg
[~2025-01-13 17:33] MED LIST changes: -ACET-1603 PO; -CYCL-839 PO; -IBUP-1455 PO
--- NOTE | 2025-01-13 18:40 | ECG ---
[facility] Test Date: 2025-01-13 Test Time: 17:41:22 Pat Name: NANCY ORELLANA Department: ER Room: 0215 Gender: M Loftsman/Woman: URIEL : 1960 Requested By: GEOVANI BURNETT Order Number: [id number] Reading MD: Wes Meza Measurements Intervals [place] Rate: 81 P: 0 VT: 151 QRS: 37 QRSD: 89 T: 148 QT: 518 QTc: 602 Interpretive Statements Sinus rhythm Borderline repolarization abnormality Prolonged QT interval Baseline wander in lead(s) V3 Electronically Signed On 01-15-2025 19:12:36 PDT by Wes Meza Please click the below link to view image of tracing.
[2025-01-13 19:06] LABS: Basophils # (auto) 0.1 10 ^3/uL (0-0.2); Basophils % (auto) 0.7 % (0.0-2.0); Eosinophils # (auto) 0.2 10 ^3/uL (0-0.8); Hematocrit 48.5 % (41.0-53.0); Lymphocytes # (auto) 3.6 10 ^3/uL (0.4-5.4); Lymphocytes % (auto) 44.2 % (10.0-50.0); Mean Corpuscular Hemoglobin 29.1 pg (28.0-32.0); Mean Corpuscular Volume 88.2 fL (80.0-100.0); Monocytes # (auto) 0.6 10 ^3/uL (0-1.3); Monocytes % (auto) 7.8 % (0.0-12.0); Neutrophils # (auto) 3.6 10 ^3/uL (1.6-8.6); Neutrophils % (auto) 44.3 % (37.0-80.0); Nucleated Red Blood Cells % 0.4 %; Platelet Count (auto) 227 10^3/uL (140-450); Red Cell Distribution Width 14.7 % (11.8-14.3); White Blood Cell 8.2 10^3/uL (4.4-10.8)
[2025-01-13 19:21] LABS: Albumin 4.5 g/dL (3.2-4.8); Alkaline Phosphatase 57 U/L (46-116); Anion Gap 8 (5-15); BUN/Creatinine Ratio 11.4 (10.0-20.0); Blood Urea Nitrogen 16 mg/dL (9-23); Carbon Dioxide 25 mmol/L (20-31); Lipase 44 U/L (12-53); Potassium 3.8 mmol/L (3.5-5.1); Sodium 142 mmol/L (136-145); Total Protein 7.7 g/dL (5.7-8.2)
[2025-01-13 19:22] LABS: Bilirubin, Total 0.6 mg/dL (0.2-1.0)
[2025-01-13 19:31] LABS: Alanine Aminotransferase 69 U/L (7-40); Aspartate Aminotransferase 46 U/L (13-40); Calcium 10.6 mg/dL (8.7-10.4); Chloride 109 mmol/L (98-107); Glucose 110 mg/dL (74-106)
--- NOTE | 2025-01-13 19:31 | DVH ---
Procedure: CT CT AB PEL WO CON-NO ORAL OR IV 01/13/2025 05:59 PM Indication: luq pain Comparison Study: None Technique: Axial images were obtained and reformatted in coronal and sagittal planes. All CT scans at this medical facility are performed using dose modulation techniques as appropriate to a performed e xam including the following: Automated exposure control was utilized; adjustment of the MA and/or KV according to patient size; and use of iterative reconstruction technique. CT Dose: CTDI volume is 23. 28 mGy. Dose-length product is 1257.81 mGy*cm FINDINGS: Lower Chest: Unremarkable. Hepatobiliary: Nodular liver contour. Large, 2 cm calcified gallstone is seen in the contracted gall bladder. No intrahepatic or extrahepatic ductal dilatation. Spleen: Unremarkable. Pancreas: Unremarkable. Adrenal Glands: Unremarkable. tract: The kidneys are normal in size bilaterally without hydronephrosis or nephrolithiasis. The b ilateral kidneys are lobular in contour. A 2.5 cm solid mass is seen arising from lateral cortex of t he lower pole of the left kidney. A subcentimeter cortical based calcification noted in the upper stevenson e of the left kidney. The urinary bladder is unremarkable. GI tract: The stomach is grossly normal in appearance. No evidence of small bowel obstruction. The la rge bowel is unremarkable. The appendix is not visualized. No inflammatory change is noted in the rig ht lower quadrant. Lymphatics: No mesenteric, retroperitoneal or periportal lymphadenopathy. Vasculature: Aorta is normal in caliber. Scattered calcified plaques are noted. Pelvic Organs: Unremarkable Bones/soft tissues: No acute abnormality. Degenerative changes of the lumbar spine noted. Small fat-c ontaining umbilical hernia. Other: None. IMPRESSION: 1. A 2.5 cm solid-appearing left renal mass is concerning for renal cell carcinoma. This should be f urther evaluated by multiphasic abdominal CT scan or MRI. 2. No hydronephrosis or hydroureter. 3. Cholelithiasis with no evidence cholecystitis. 4. Nodular liver contour suggestive of cirrhosis.
--- NOTE | 2025-01-13 19:59 | ED.PDOC ---
GI ASSESSMENT HPI Comments 64y M who presents to the ED for chief complaint of abdominal pain for the past week. Pt states the pain is L side of abdomen, constant, non-radiating, with no associated exacerbating or relieving factors. Pt states he is also having chest pain, L sided, non-radiating, constant, with no associated exacerbating or relieving factors. Pt has associated shortness of breath but otherwise denies nausea, vomiting, diarrhea, palpitations, diaphoresis, fever, cough, chills, dysuria, headache, or dizziness. Pt states he is homeless. Pt state he was at [facility] a few weeks prior for HTN urgency and hospitalized. Pt states in the ED, he otherwise has history of HTN but states he ran out of medication yesterday. Pt in the ED, has noted BP of 170/108 but otherwise has stable vitals with temp of 97.7 F, RR 18, heart rate of 86 and 02 sat of 96% on room air.Pt does have noted history of brain aneurysm. Pt otherwise denies any other symptoms at this time. Chief Complaint: Abdominal Pain Time Seen by MD: 19:51 Primary Care Provider: Maulik Jang Notes: Medications, Allergies Allergies: Coded Allergies: NO KNOWN ALLERGIES (Unverified , 02/17/18) Home Meds Reported Medications Lisinopril (Lisinopril) 5 Mg Tab, 5 MG PO DAILY 03/18/18 Nifedipine (Nifedipine Er) 60 Mg Tab, 60 MG PO DAILY 03/18/18 Information Source: Patient Mode of Arrival: Ambulatory Past Medical History PAST MEDICAL HISTORY: CVA, HTN Past Medical History (Other): brain aneurysm Surgical History: Appendectomy Surgical History (Other): Brain surgery for aneurysm Family History Family History: Unknown Social History Smoker: Cigarettes Alcohol: Denies ETOH Use Drugs: Marijuana Lives In: Homeless Constitutional: denies: chills, diaphoresis, fatigue, fever, malaise, sweats, weakness, others EENTM: denies: blurred vision, double vision, ear bleeding, ear discharge, ear drainage, ear pain, ear ringing, eye pain, eye redness, hearing loss, mouth pain, mouth swelling, nasal discharge, nose bleeding, nose congestion, nose pain, photophobia, tearing, throat pain, throat swelling, voice changes, others Respiratory: reports: shortness of breath; denies: cough, hemoptysis, orthopnea, SOB at rest, SOB with excertion, stridor, wheezing, others Cardiovascular: reports: chest pain; denies: dizzy spells, diaphoresis, Dyspnea on exertion, edema, irregular heart beat, left arm pain, lightheadedness, palpitations, PND, syncope, others Gastrointestinal: reports: abdominal pain; denies: abdomen distended, blood streaked bowels, constipated, diarrhea, dysphagia, difficulty swallowing, hematemesis, melena, nausea, poor appetite, poor fluid intake, rectal bleeding, rectal pain, vomiting, others Genitourinary: denies: burning, dysuria, flank pain, frequency, hematuria, incontinence, penile discharge, penile sore, pain, testicle pain, testicle swelling, urgency, others Neurological: denies: dizziness, fainting, headache, left sided numbness, left sided weakness, numbness, paresthesia, pre-existing deficit, right sided numbness, right sided weakness, seizure, speech problems, tingling, tremors, weakness, others Musculoskeletal: denies: back pain, gout, joint pain, joint swelling, muscle pain, muscle stiffness, neck pain, others Integumetry: denies: bruises, change in color, change in hair/nails, dryness, laceration, lesions, lumps, rash, wounds, others Allergic/Immunocompromised: denies: Difficulty Healing, Frequent Infections, Hives, Itching, others Hematologic/Lymphatic: denies: anemia, blood clots, easy bleeding, easy bruising, swollen glands, others Endocrine: denies: excessive hunger, excessive sweating, excessive thirst, excessive urination, flushing, intolerance to cold, intolerance to heat, unexplained weight gain, unexplained weight loss, others Psychiatric: denies: anxiety, bipolar disorder, depression, hopeless, panic disorder, schizophrenia, sleepless, suicidal, others All Other Systems: Reviewed and Negative Physical Exam General Appearance: No Apparent Distress HEENT: PERRL/EOMI Neck: Full Range of Motion, Normal Inspection Respiratory: Lungs Clear, No Accessory Muscle Use, No Respiratory Distress, Normal Breath Sounds Cardiovascular: No Edema, No JVD, Regular Rate/Rhythm Breast Exam: Deferred Gastrointestinal: LUQ, Soft, Tenderness Genitalia: Deferred Pelvic: Deferred Rectal: Deferred Extremities: Normal inspection, Normal range of motion, Non-tender, No pedal edema Neurologic: Alert (Oriented x4), Normal Affect, Normal Mood, Other (Ambulatory. No gross focal deficit.) Cerebellar Function: NOT DONE Reflexes: NOT DONE Skin: Dry, Normal Color, Warm Lymphatic: NOT DONE EKG EKG : Comments Sinus rhythm, rate 81, normal KS and QRS intervals, QTC prolonged at 602, normal axis, normal QRS, nonspecific T changes. Baseline artifact. Was a procedure done? Was a procedure done?: No GI differential Dx Differential Diagnosis: Bowel Obstruction, Constipation, Diverticular disease, Gastritis/PUD, Gastroenteritis, GI hemorrhage, Hernia, Inflammatory BD, Ischemic Bowel, Pancreatitis, Trauma intraabdominal, UTI, Electrolyte Imbalance, Food Poisoning, Bacterial, Viral, Impaction, Renal Failure, Mass, Stress Ulcer, Kidney Stone Other Differential Diagnosis HTN urgency X-Ray, Labs, Meds, VS Vital Signs Date Time Temp Pulse Resp B/P (MAP) Pulse Ox O2 Delivery O2 Flow Rate FiO2 01/13/25 20:08 70 16 97 Room Air* 0 21 01/13/25 20:01 70 16 153/110 01/13/25 19:59 97.5 70 16 153/110 (124) 97 97.5 01/13/25 17:41 81 01/13/25 17:36 97.7 86 18 170/108 (128) 96 Lab Test 01/13/25 18:38 Range/Units White Blood Count 8.2 4.4-10.8 10^3/uL Red Blood Count 5.50 4.5-5.90 10^6/uL Hemoglobin 16.0 13.5-17.5 g/dL Hematocrit 48.5 41.0-53.0 % Mean Corpuscular Volume 88.2 80.0-100.0 fL Mean Corpuscular Hemoglobin 29.1 28.0-32.0 pg Mean Corpuscular Hemoglobin Concent 33.0 32.0-36.0 g/dL Red Cell Distribution Width 14.7 H 11.8-14.3 % Platelet Count 227 140-450 10^3/uL Mean Platelet Volume 8.7 6.9-10.8 fL Neutrophils (%) (Auto) 44.3 37.0-80.0 % Lymphocytes (%) (Auto) 44.2 10.0-50.0 % Monocytes (%) (Auto) 7.8 0.0-12.0 % Eosinophils (%) (Auto) 3.0 0.0-7.0 % Basophils (%) (Auto) 0.7 0.0-2.0 % Neutrophils # (Auto) 3.6 1.6-8.6 10 ^3/uL Lymphocytes # (Auto) 3.6 0.4-5.4 10 ^3/uL Monocytes # (Auto) 0.6 0-1.3 10 ^3/uL Eosinophils # (Auto) 0.2 0-0.8 10 ^3/uL Basophils # (Auto) 0.1 0-0.2 10 ^3/uL Nucleated Red Blood Cells 0.4 % Sodium Level 142 136-145 mmol/L Potassium Level 3.8 3.5-5.1 mmol/L Chloride Level 109 H 98-107 mmol/L Carbon Dioxide Level 25 20-31 mmol/L Anion Gap 8 5-15 Blood Urea Nitrogen 16 9-23 mg/dL Creatinine 1.40 H 0.700-1.30 mg/dL Glomerular Filtration Rate Calc 56 >90 mL/min BUN/Creatinine Ratio 11.4 10.0-20.0 Serum Glucose 110 H 74-106 mg/dL Calcium Level 10.6 H 8.7-10.4 mg/dL Total Bilirubin 0.6 0.2-1.0 mg/dL Aspartate Amino Transferase (AST) 46 H 13-40 U/L Alanine Aminotransferase (ALT) 69 H 7-40 U/L Alkaline Phosphatase 57 46-116 U/L Troponin I High Sensitivity 6 </=54 ng/L B-Type Natriuretic Peptide 16.57 0-100 pg/mL Total Protein 7.7 5.7-8.2 g/dL Albumin 4.5 3.2-4.8 g/dL Lipase 44 12-53 U/L Current Medications Medications (Trade) Dose Ordered Sig/Mary Route Start Time Stop Time Status Last Admin Morphine Sulfate 4 mg ONCE ONCE IV 01/13/25 18:00 01/13/25 18:01 DC 01/13/25 20:01 Ondansetron HCl (Zofran) 4 mg ONCE ONCE IV 01/13/25 18:00 01/13/25 18:01 DC 01/13/25 20:00 Pantoprazole Sodium (Protonix) 40 mg ONCE ONCE IV 01/13/25 18:00 01/13/25 18:01 DC 01/13/25 20:00 [facility] [id number] [place] [id number] Ph: [phone] DIAGNOSTIC IMAGING Diagnostic Imaging Report : [id number] Signed PATIENT: NANCY ORELLANA ACCT: [id number] UNIT: [id number] : 1960 LOC: ER ROOM / BED: / AGE / SEX: 64 / M ADM STATUS: REG ER SERVICE [id number] ORDERING PHYSICIAN: GEOVANI PRADHAN MD PROCEDURE(s): ABPL - CT AB PEL WO CON-NO ORAL OR IV REASON: luq pain ORDER NUMBER(s): [id number], ACCESSION NUMBER(s): [id number] Procedure: CT CT AB PEL WO CON-NO ORAL OR IV 01/13/2025 05:59 PM Indication: luq pain Comparison Study: None Technique: Axial images were obtained and reformatted in coronal and sagittal planes. All CT scans at this medical facility are performed using dose modulation techniques as appropriate to a performed exam including the following: Automated exposure control was utilized; adjustment of the MA and/or KV according to patient size; and use of iterative reconstruction technique. CT Dose: CTDI volume is 23.28 mGy. Dose-length product is 1257.81 mGy*cm FINDINGS: Lower Chest: Unremarkable. Hepatobiliary: Nodular liver contour. Large, 2 cm calcified gallstone is seen in the contracted gallbladder. No intrahepatic or extrahepatic ductal dilatation. Spleen: Unremarkable. Pancreas: Unremarkable. Adrenal Glands: Unremarkable. tract: The kidneys are normal in size bilaterally without hydronephrosis or nephrolithiasis. The bilateral kidneys are lobular in contour. A 2.5 cm solid mass is seen arising from lateral cortex of the lower pole of the left kidney. A subcentimeter cortical based calcification noted in the upper pole of the left kidney. The urinary bladder is unremarkable. GI tract: The stomach is grossly normal in appearance. No evidence of small bowel obstruction. The large bowel is unremarkable. The appendix is not visualized. No inflammatory change is noted in the right lower quadrant. Lymphatics: No mesenteric, retroperitoneal or periportal lymphadenopathy. Vasculature: Aorta is normal in caliber. Scattered calcified plaques are noted. Pelvic Organs: Unremarkable Bones/soft tissues: No acute abnormality. Degenerative changes of the lumbar spine noted. Small fat-containing umbilical hernia. Other: None. IMPRESSION: 1. A 2.5 cm solid-appearing left renal mass is concerning for renal cell ca rcinoma. This should be further evaluated by multiphasic abdominal CT scan or MRI. 2. No hydronephrosis or hydroureter. 3. Cholelithiasis with no evidence cholecystitis. 4. Nodular liver contour suggestive of cirrhosis. ATED BY: ANA MARIA DICK MD DICTATED DATE/TIME: 01/13/251927 SIGNED BY: ANA MARIA DICK MD SIGNED DATE/TIME: 01/13/251927 CC: X-Ray, Labs, Meds, VS Comment 64-year-old male with a history of hypertension and repaired brain aneurysm presenting complaining of left-sided abdominal and chest pain Vitals remarkable for BP 170/108 Exam remarkable for left upper quadrant and left mid abdominal tenderness to pal pation Rhythm strip independently interpreted by me: Sinus rhythm, rate 81, no ectopy. CT abdomen and pelvis: IMPRESSION: 1. A 2.5 cm solid-appearing left renal mass is concerning for renal cell carcinoma. This should be further evaluated by multiphasic abdominal CT scan or MRI. 2. No hydronephrosis or hydroureter. 3. Cholelithiasis with no evidence cholecystitis. 4. Nodular liver contour suggestive of cirrhosis. CBC unremarkable, metabolic panel remarkable for creatinine 1.4, calcium 10.6, AST 46, ALT 69, lipase normal, BNP and troponin negative Patient treated with the following in the ED: Morphine 4 mg IV, Zofran 4 mg IV, Protonix 40 mg IV, hydralazine 10 mg IV On re-evaluation, patient states pain has improved. Blood pressure is improving. Other vitals were stable. Plan is to admit the patient for blood pressure control and further evaluation of the left renal mass. Time of 1ST Reevaluation: 20:20 Reevaluation 1ST: Unchanged Patient Education/Counseling: Diagnosis, Treatment Family Education/Counseling: No Family Present Additional Information -Reviewed patient's previous visit(s): - The following tests were ordered, and results were reviewed by me: ekg x1, trop x4, cbc, cmp, lipase, ua, ct abd pelvis w/o contrast, bnp, - Additional information was gathered from interviewing the following independent Historian: patient - I reviewed and agreed with the following test results read by other provider: radiologist - I discussed treatments and results with medical personnel and: patient Comprehensive systems review obtained and negative except for what is stated in the HPI. Departure 1 Departure Time of Disposition: 20:36 Impression: Primary Impression: Left renal mass Additional Impressions: Hypertensive urgency Chest pain with moderate risk of acute coronary syndrome Disposition: ADMITTED INPATIENT Admit to: Tele Condition: Guarded Critical Care Note Critical Care Time?: No Stability Stability form required: No Heart Score Heart Score: Heart Score Response (Comments) Value History Moderate Suspicious 1 EKG Repolarization Disturb 1 Age 45-64 1 Risk Factors 1 or 2 risk factors 1 Troponin Normal limit 0 Total 4 I personally scribed for GEOVANI PRADHAN MD ([email or web address]) on 01/13/25 at 19:59. Electronically submitted by Jorge Peters ([facility]). GEOVANI PRADHAN MD Jan 13, 2025 19:59
[2025-01-13] MEDS: PANTOPRAZOLE 40 MG/10 ML VIAL INJ IV ONE (20:00)
[2025-01-13] MEDS: ONDANSETRON HCL 4 MG/2 ML VIAL IV ONE (20:00)
[2025-01-13] MEDS: MORPHINE SULFATE 4 MG/ML SYR/VIAL IV ONE (20:01)
[2025-01-13 20:08] VITALS: PULSE 70; RESP 16; O2SAT 97
[2025-01-13 21:01] LABS: Urine Bacteria None Seen /hpf (None Seen)
[2025-01-13] MEDS ORDERED: ACETAMINOPHEN 325 MG TAB PO PRN (21:15)
[2025-01-13] MEDS ORDERED: HYDROcodone-ACET 5/325MG TAB PO PRN (21:15)
--- NOTE | 2025-01-13 21:39 | DVHHPRES ---
History of Present Illness Resident Creating Document: NIRANJAN AZEVEDO RESDIENT History of Present Illness This is a 64-year-old homeless male with past medical history of hypertension, CVA (with residual deficit of right sided weakness), brain aneurysm and chronic back pain due to herniated lumbar disc, came to the hospital due to abdominal pain since 2 weeks. He has localized and constant left upper abdominal pain, dull, nonradiating and increased by changing position and mobility. He denies fever, cough, shortness of breath, or any bowel and bladder habit changes. Patient has history of CVA with residual weakness on the right upper and lower limb. PMHx: hypertension, CVA (with residual issues with the right side), brain aneurysm and herniated lumbar disc PSHx: Back surgery Family history: Noncontributory Social history: Patient is homeless, ex-smoker with a 25 pack year history, denies any other drug use Home medication: Currently the patient is not taking any medicine, previously was prescribed lisinopril and nifedipine Allergic history: No known allergy Patient seen and examined at bedside. Currently still complains of left-sided abdominal pain. Review of Systems Review of Systems General: patient denies fever, fatigue, weaknes, sweating, any recent changes in appetite and weight HEENT: No headaches, visiual changes, hearing loss, tinnitus, nasal congestion and discharge, and sore throat. Cardiovascular: Denies chest pain, palpitations, dyspnea on exertion, orthopnea, or claudication. Respiratory: No cough, and wheezing. Gastrointestinal: Reports left upper quadrant abdominal pain Genitourinary: No dysuria, hematuria, discharge, frequency, urgency, nocturia, incontinence, and urinary retention. Endocrine: No heat or cold intolerance, polydipsia, polyuria, and polyphagia. Neurological: No dizziness, extremity weakness and numbness, tremors, gait disturbance, seizures, and memory impairment. Psychiatric: Denies depression, anxiety,or insomnia. Musculoskeletal: Denies neck pain, stiffness and swelling, back pain, muscle weakness, joint pain, stiffness, swelling, or limited range of motion. Skin: No rashes, itching, skin lesion, changes in hair, nail, skin texture and breast. Hematologic/Lymphatic: Denies easy bruising, bleeding tendencies, or lymph node enlargement. Allergies: Coded Allergies: NO KNOWN ALLERGIES (Unverified , 02/17/18) Medications Current Medications Medications Dose Ordered Sig/Mary Route Start Time Stop Time Status Last Admin Dose Admin Enoxaparin Sodium 40 mg DAILY SC 01/14/25 10:00 UNV Nifedipine 60 mg DAILY PO 01/14/25 10:00 UNV Acetaminophen 650 mg Q4HP PRN PO 01/13/25 21:15 UNV Acetaminophen/ Hydrocodone Bitart 1 tab Q6HPRN PRN PO 01/13/25 21:15 UNV Exam Vital Signs Vital Signs Date Time Temp Pulse Resp B/P (MAP) Pulse Ox O2 Delivery O2 Flow Rate FiO2 01/13/25 20:40 63 16 152/76 01/13/25 20:08 97 Room Air* 0 21 01/13/25 19:59 97.5 97.5 Exam General Appearance: Alert, Oriented X3, Cooperative, No acute distress HEENT: Atraumatic, PERRLA, EOMI, Mucous membrane moist/pink Respiratory: Clear to auscultation, Normal air movement Cardiovascular: Regular rate, Normal S1, Normal S2, No murmurs, no chest wall tenderness Abdominal: Left-sided abdominal tenderness, abdomen is soft, nondistended, normal bowel sounds, no organomegaly Extremities: No clubbing, No cyanosis, No edema, Normal pulses, No tenderness/swelling Skin: No rashes, No breakdown, No significant lesion Neuro: Right-sided residual deficits due to previous CVA, right upper limb power 2/5 and right lower limb power 3/5 Psych/Mental Status: Mental status NL, Mood NL Labs/Xrays Labs Test 01/13/25 20:44 01/13/25 20:39 01/13/25 18:38 Range/Units Troponin I High Sensitivity 6 </=54 ng/L White Blood Count 8.2 4.4-10.8 10^3/uL Red Blood Count 5.50 4.5-5.90 10^6/uL Hemoglobin 16.0 13.5-17.5 g/dL Hematocrit 48.5 41.0-53.0 % Mean Corpuscular Volume 88.2 80.0-100.0 fL Mean Corpuscular Hemoglobin 29.1 28.0-32.0 pg Mean Corpuscular Hemoglobin Concent 33.0 32.0-36.0 g/dL Red Cell Distribution Width 14.7 H 11.8-14.3 % Platelet Count 227 140-450 10^3/uL Mean Platelet Volume 8.7 6.9-10.8 fL Neutrophils (%) (Auto) 44.3 37.0-80.0 % Lymphocytes (%) (Auto) 44.2 10.0-50.0 % Monocytes (%) (Auto) 7.8 0.0-12.0 % Eosinophils (%) (Auto) 3.0 0.0-7.0 % Basophils (%) (Auto) 0.7 0.0-2.0 % Neutrophils # (Auto) 3.6 1.6-8.6 10 ^3/uL Lymphocytes # (Auto) 3.6 0.4-5.4 10 ^3/uL Monocytes # (Auto) 0.6 0-1.3 10 ^3/uL Eosinophils # (Auto) 0.2 0-0.8 10 ^3/uL Basophils # (Auto) 0.1 0-0.2 10 ^3/uL Nucleated Red Blood Cells 0.4 % Sodium Level 142 136-145 mmol/L Potassium Level 3.8 3.5-5.1 mmol/L Chloride Level 109 H 98-107 mmol/L Carbon Dioxide Level 25 20-31 mmol/L Anion Gap 8 5-15 Blood Urea Nitrogen 16 9-23 mg/dL Creatinine 1.40 H 0.700-1.30 mg/dL Glomerular Filtration Rate Calc 56 >90 mL/min BUN/Creatinine Ratio 11.4 10.0-20.0 Serum Glucose 110 H 74-106 mg/dL Calcium Level 10.6 H 8.7-10.4 mg/dL Total Bilirubin 0.6 0.2-1.0 mg/dL Aspartate Amino Transferase (AST) 46 H 13-40 U/L Alanine Aminotransferase (ALT) 69 H 7-40 U/L Alkaline Phosphatase 57 46-116 U/L B-Type Natriuretic Peptide 16.57 0-100 pg/mL Total Protein 7.7 5.7-8.2 g/dL Albumin 4.5 3.2-4.8 g/dL Lipase 44 12-53 U/L Assessment/Plan Assessment/Plan Intractable abdominal pain, likely due to renal cell carcinoma Possible renal cell carcinoma CT scan shows 2.5 cm solid-appearing left renal mass but no hydroureter or hydronephrosis Consult Urology [place] IV fluid Cholelithiasis, without cholecystitis CT scan finding KEYLA on CKD grade 2, likely VMN IV fluid Possible liver cirrhosis Transaminitis Abdominal CT scan shows, nodular liver contour suggestive of cirrhosis Check serum alcohol level and hepatitis panel Asymptomatic hypercalcemia History of CVA Hypertension History of Brain aneurysm Nifedipine Atorvastatin We will hold aspirin DIET: Cardiac diet DVT PROPHYLAXIS: Lovenox GI PROPHYLAXIS:: Protonix CODE STATUS: Goal of care discussed for more than 18 minutes, full code DISPOSITION: Med/surge Patient's status and plan discussed with the patient. Case discussed with Dr. Dubon. Plan discussed with: Patient, Other (RN) My Orders Orders - NIRANJAN AZEVEDO RESDIJOHNNY Procedure Category Date Status Time Admit ADMIT 01/13/25 Transmitted 21:08 Code Status CODE 01/13/25 Transmitted 21:08 Vital Signs [facility] 01/13/25 In Process 21:08 Review Orders With [facility] 01/13/25 In Process Adm. 21:08 Notify Of Changes [facility] 01/13/25 In Process From Base 21:08 Advance Directive [facility] 01/13/25 In Process 21:08 Patient Condition ORDERS 01/13/25 Transmitted 21:08 Allergies [facility] 01/13/25 In Process 21:08 Drug Screen LAB 01/13/25 Logged 21:08 Lovenox 40mg PHA 01/14/25 Transmitted 10:00 Stat Ekg For Chest [facility] 01/13/25 In Process Pain 21:08 Notify Of Changes [facility] 01/13/25 In Process From Base 21:08 Comprehensive LAB 01/14/25 Verified Metabolic Panel 04:00 Complete Blood Count LAB 01/14/25 Verified 04:00 PTPTT LAB 01/14/25 Verified 04:00 Covid19 Antigen [facility] LAB 01/13/25 Logged Rapid Influenza A&B LAB 01/13/25 Logged 21:08 Chest Xray 1 View XY 01/13/25 Logged 21:08 Blood Alcohol LAB 01/13/25 Logged 21:08 Nifedipine Er PHA 01/13/25 Transmitted (Procardia Xl 21:15 Nifedipine Er PHA 01/14/25 Transmitted (Procardia Xl 10:00 NS PHA 01/13/25 Transmitted 21:15 Acetaminophen Tablet PHA 01/13/25 Transmitted (Tylenol Tablet) 21:15 Hydrocodone-Acet PHA 01/13/25 Transmitted 5/325mg Tab ([place] 21:15 * Urology Consult CONS 3/13/25 Transmitted 21:08 Date of Service: Jan 13, 2025 Billing Provider: NYA DUBON MD Common Visit Codes: 62531-[id number] INP/OBS CARE (HIGH) NIRANJAN AZEVEDO RESDIENT Jan 13, 2025 21:39 NIHARIKA MEYERS RESIDENT Jan 14, 2025 01:01 NYA DUBON MD Jan 14, 2025 16:56
[2025-01-13 21:47] LABS: Urine Blood 1+ /uL (Negative); Urine Clarity Clear (Clear); Urine Color Yellow (Yellow); Urine Hyaline Cast FEW /lpf (0 - 2); Urine Mucus FEW (None Seen); Urine Protein, UAD TRACE (Negative); Urine Specific Gravity 1.022 (1.001-1.035); Urine Squamous Epithelial Cell None Seen /hpf (<5); Urine Urobilinogen 3 mg/dL (Negative); Urine WBC 2 /HPF (0-3)
--- NOTE | 2025-01-13 22:05 | DVH ---
CHEST RADIOGRAPH Indication: Pneumonia Technique: Single frontal view of the chest was obtained Comparison: XY CHEST PORTABLE on DOS: 12/22/24 FINDINGS: Lines and Tubes: None Lungs: Clear Pleura: No effusion. No pneumothorax. Cardiomediastinal contours: Unremarkable Bones: Unremarkable IMPRESSION: Clear lungs.
[2025-01-13 22:45] VITALS: BP 144/77; PULSE 59; RESP 20; TEMP 97.7; O2SAT 96
[2025-01-13 23:09] LABS: COVID19 ANTIGEN SOFIA FIA NEGATIVE (NEGATIVE)
[2025-01-13 23:10] LABS: Rapid Influenza A Negative (Negative); Rapid Influenza B Negative (Negative)
[2025-01-13 23:27] LABS: Cannabinoid Screen, Urine Neg (NEGATIVE); Opiate Scree,Urine Neg (NEGATIVE)
[2025-01-13 23:46] LABS: Amphetamine Screen, Urine Pos (NEGATIVE); Barbiturate Scree,Urine Neg (NEGATIVE); Benzodiazephine Screen, Urine Neg (NEGATIVE); Cocaine Screen, Urine Neg (NEGATIVE); Phencyclidine Screen, Urine Neg (NEGATIVE)
[2025-01-14] VITALS (9 sets, daily range): BP systolic 90–144; BP diastolic 53–114; PULSE 59–94; RESP 17–20; TEMP 97.7–98.6; O2SAT 89–96
[2025-01-14] MEDS: ATORVASTATIN 20 MG TAB PO SCH (01:21)
[2025-01-14] MEDS: NIFEdipine ER 30 MG TAB PO ONE (01:22)
[2025-01-14] MEDS: SODIUM CHLORIDE 0.9% 500 ML IV ONE (01:22)
[2025-01-14] MEDS: hydrALAZINE HCL 20 MG/ML VL IV ONE (01:22)
[2025-01-14 06:23] LABS: Basophils # (auto) 0 10 ^3/uL (0-0.2); Basophils % (auto) 0.5 % (0.0-2.0); Eosinophils # (auto) 0.3 10 ^3/uL (0-0.8); Eosinophils % (auto) 4.4 % (0.0-7.0); Hematocrit 43.1 % (41.0-53.0); Hemoglobin 14.5 g/dL (13.5-17.5); INR 1.05 (0.9-1.15); Lymphocytes # (auto) 3.6 10 ^3/uL (0.4-5.4); Lymphocytes % (auto) 48.1 % (10.0-50.0); Mean Corpuscular Hemoglobin 29.4 pg (28.0-32.0); Mean Corpuscular Hgb Conc. 33.7 g/dL (32.0-36.0); Mean Corpuscular Volume 87.2 fL (80.0-100.0); Monocytes # (auto) 0.6 10 ^3/uL (0-1.3); Monocytes % (auto) 8.6 % (0.0-12.0); Neutrophils # (auto) 2.9 10 ^3/uL (1.6-8.6); Neutrophils % (auto) 38.4 % (37.0-80.0); Nucleated Red Blood Cells % 0.4 %; Partial Thromboplastin Time 26.5 SEC (24.5-34.5); Platelet Count (auto) 196 10^3/uL (140-450); Prothrombin Time 11.1 sec (9.3-11.8); Red Blood Cells 4.94 10^6/uL (4.5-5.90); Red Cell Distribution Width 14.6 % (11.8-14.3); White Blood Cell 7.6 10^3/uL (4.4-10.8)
[2025-01-14 06:31] LABS: Alkaline Phosphatase 47 U/L (46-116); Anion Gap 9 (5-15); BUN/Creatinine Ratio 13.6 (10.0-20.0); Blood Urea Nitrogen 17 mg/dL (9-23); Calcium 9.7 mg/dL (8.7-10.4); Carbon Dioxide 25 mmol/L (20-31); Sodium 142 mmol/L (136-145); Total Protein 6.6 g/dL (5.7-8.2)
[2025-01-14 06:32] LABS: Albumin 3.8 g/dL (3.2-4.8); Aspartate Aminotransferase 39 U/L (13-40)
[2025-01-14 06:33] LABS: Alanine Aminotransferase 59 U/L (7-40); Bilirubin, Total 0.7 mg/dL (0.2-1.0); Chloride 108 mmol/L (98-107); Glucose 108 mg/dL (74-106); Potassium 3.5 mmol/L (3.5-5.1)
[2025-01-14] MEDS ORDERED: GADOTERATE MEG 10 MMOL/20ml INJ (0.5MMOL/ml) IV ONE (07:23)
--- NOTE | 2025-01-14 09:37 | DVHINCON2 ---
Date of service: Jan 14, 2025 Referring Physician Hospitalist Reason for Consultation 2.5 cm History of Present Illness 64-year-old homeless male with past medical history of hypertension, CVA (with residual deficit of right sided weakness), brain aneurysm and chronic back pain due to herniated lumbar disc, came to the hospital due to abdominal pain since 2 weeks. He has localized and constant left upper abdominal pain, dull, nonradiating and increased by changing position and mobility. He denies fever, cough, shortness of breath, or any bowel and bladder habit changes. Patient has history of CVA with residual weakness on the right upper and lower limb. CT scan reports 2.5 cm solid left renal mass. Past Medical History hypertension, CVA (with residual issues with the right side), brain aneurysm and herniated lumbar disc Past Surgical History Appendectomy Surgical History (Other): Brain surgery for aneurysm Family History: Patient reports no known family medical history. Social History Patient is homeless, ex-smoker with a 25 pack year history, denies any other drug use Allergies: Coded Allergies: NO KNOWN ALLERGIES (Unverified , 02/17/18) Home Meds Reported Medications Lisinopril (Lisinopril) 5 Mg Tab, 5 MG PO DAILY 03/18/18 Nifedipine (Nifedipine Er) 60 Mg Tab, 60 MG PO DAILY 03/18/18 Current Medications Current Medications Medications (Trade) Dose Ordered Sig/Mary Route PRN Reason Start Time Stop Time Status Last Admin Enoxaparin Sodium (Lovenox) 40 mg DAILY SC 01/14/25 10:00 Nifedipine (Procardia Xl (Time-Release)) 60 mg DAILY PO 01/14/25 10:00 Acetaminophen (Tylenol Tablet) 650 mg Q4HP PRN PO MILD PAIN (1-3 PAIN SCALE) 01/13/25 21:15 Acetaminophen/ Hydrocodone Bitart (Ogden 5/325MG Tab) 1 tab Q6HPRN PRN PO MODERATE PAIN (4-6 PAIN SCALE) 01/13/25 21:15 Atorvastatin Calcium (Lipitor) 40 mg HS PO 01/13/25 22:00 01/14/25 01:21 Review of Systems General: patient denies fever, fatigue, weaknes, sweating, any recent changes in appetite and weight HEENT: No headaches, visiual changes, hearing loss, tinnitus, nasal congestion and discharge, and sore throat. Cardiovascular: Denies chest pain, palpitations, dyspnea on exertion, orthopnea, or claudication. Respiratory: No cough, and wheezing. Gastrointestinal: Reports left upper quadrant abdominal pain Genitourinary: No dysuria, hematuria, discharge, frequency, urgency, nocturia, incontinence, and urinary retention. Endocrine: No heat or cold intolerance, polydipsia, polyuria, and polyphagia. Neurological: No dizziness, extremity weakness and numbness, tremors, gait disturbance, seizures, and memory impairment. Psychiatric: Denies depression, anxiety,or insomnia. Musculoskeletal: Denies neck pain, stiffness and swelling, back pain, muscle we akness, joint pain, stiffness, swelling, or limited range of motion. Skin: No rashes, itching, skin lesion, changes in hair, nail, skin texture and breast. Hematologic/Lymphatic: Denies easy bruising, bleeding tendencies, or lymph node enlargement. Allergies: Coded Allergies: NO KNOWN ALLERGIES (Unverified , 02/17/18) Medications Current Medications Medications Dose Ordered Sig/Mary Route Start Time Stop Time Status Last Admin Dose Admin Enoxaparin Sodium 40 mg DAILY SC 01/14/25 10:00 UNV Nifedipine 60 mg DAILY PO 01/14/25 10:00 UNV Acetaminophen 650 mg Q4HP PRN PO 01/13/25 21:15 UNV Acetaminophen/ Hydrocodone Bitart 1 tab Q6HPRN PRN PO 01/13/25 21:15 UNV Vital Signs Vital Signs Date Time Temp Pulse Resp B/P (MAP) Pulse Ox O2 Delivery O2 Flow Rate FiO2 01/14/25 05:00 98.4 94 20 122/80 (94) 89 98.4 01/13/25 22:45 Room Air* 0 21 Physical Exam Vital Signs Date Time Temp Pulse Resp B/P (MAP) Pulse Ox O2 Delivery O2 Flow Rate FiO2 01/13/25 20:40 63 16 152/76 01/13/25 20:08 97 Room Air* 0 21 01/13/25 19:59 97.5 97.5 Exam General Appearance: Alert, Oriented X3, Cooperative, No acute distress HEENT: Atraumatic, PERRLA, EOMI, Mucous membrane moist/pink Respiratory: Clear to auscultation, Normal air movement Cardiovascular: Regular rate, Normal S1, Normal S2, No murmurs, no chest wall tenderness Abdominal: Left-sided abdominal tenderness, abdomen is soft, nondistended, normal bowel sounds, no organomegaly Extremities: No clubbing, No cyanosis, No edema, Normal pulses, No tenderness/swelling Skin: No rashes, No breakdown, No significant lesion Neuro: Right-sided residual deficits due to previous CVA, right upper limb power 2/5 and right lower limb power 3/5 Psych/Mental Status: Mental status NL, Mood NL Labs/Diagnostic Data Labs Test 01/14/25 05:22 01/13/25 22:09 01/13/25 20:44 01/13/25 20:39 Range/Units White Blood Count 7.6 4.4-10.8 10^3/uL Red Blood Count 4.94 4.5-5.90 10^6/uL Hemoglobin 14.5 13.5-17.5 g/dL Hematocrit 43.1 # 41.0-53.0 % Mean Corpuscular Volume 87.2 80.0-100.0 fL Mean Corpuscular Hemoglobin 29.4 28.0-32.0 pg Mean Corpuscular Hemoglobin Concent 33.7 32.0-36.0 g/dL Red Cell Distribution Width 14.6 H 11.8-14.3 % Platelet Count 196 140-450 10^3/uL Mean Platelet Volume 8.8 6.9-10.8 fL Neutrophils (%) (Auto) 38.4 37.0-80.0 % Lymphocytes (%) (Auto) 48.1 10.0-50.0 % Monocytes (%) (Auto) 8.6 0.0-12.0 % Eosinophils (%) (Auto) 4.4 0.0-7.0 % Basophils (%) (Auto) 0.5 0.0-2.0 % Neutrophils # (Auto) 2.9 1.6-8.6 10 ^3/uL Lymphocytes # (Auto) 3.6 0.4-5.4 10 ^3/uL Monocytes # (Auto) 0.6 0-1.3 10 ^3/uL Eosinophils # (Auto) 0.3 0-0.8 10 ^3/uL Basophils # (Auto) 0 0-0.2 10 ^3/uL Nucleated Red Blood Cells 0.4 % Prothrombin Time 11.1 9.3-11.8 sec Prothrombin Time INR 1.05 0.9-1.15 Activated Partial Thromboplast Time 26.5 24.5-34.5 SEC Sodium Level 142 136-145 mmol/L Potassium Level 3.5 3.5-5.1 mmol/L Chloride Level 108 H 98-107 mmol/L Carbon Dioxide Level 25 20-31 mmol/L Anion Gap 9 5-15 Blood Urea Nitrogen 17 9-23 mg/dL Creatinine 1.25 0.700-1.30 mg/dL Glomerular Filtration Rate Calc 64 >90 mL/min BUN/Creatinine Ratio 13.6 10.0-20.0 Serum Glucose 108 H 74-106 mg/dL Calcium Level 9.7 8.7-10.4 mg/dL Total Bilirubin 0.7 0.2-1.0 mg/dL Aspartate Amino Transferase (AST) 39 13-40 U/L Alanine Aminotransferase (ALT) 59 H 7-40 U/L Alkaline Phosphatase 47 46-116 U/L Total Protein 6.6 5.7-8.2 g/dL Albumin 3.8 3.2-4.8 g/dL Influenza Type A Antigen Negative Negative Influenza Type B Antigen Negative Negative SARS-CoV-2 Antigen (Rapid) Negative NEGATIVE Urine Color Yellow Yellow Urine Clarity Clear Clear Urine pH 5.0 5.0-9.0 Urine Specific Cascade 1.022 1.001-1.035 Urine Protein Trace H Negative Urine Ketones Negative Negative Urine Blood 1+ H Negative /uL Urine Nitrite Negative Negative Urine Bilirubin Negative Negative Urine Urobilinogen 3 H Negative mg/dL Urine Leukocyte Esterase Negative Negative /uL Urine RBC 3 0 - 3 /hpf Urine Microscopic WBC 2 0-3 /HPF Urine Squamous Epithelial Cells None seen <5 /hpf Urine Bacteria None seen None Seen /hpf Urine Hyaline Casts Few 0 - 2 /lpf Urine Mucus Few None Seen Urine Glucose Normal Normal mg/dL Urine Opiates Screen Neg NEGATIVE Urine Fentanyl Screen Neg NEGATIVE Urine Barbiturates Screen Neg NEGATIVE Urine Phencyclidine Screen Neg NEGATIVE Urine Amphetamines Screen Pos NEGATIVE Urine Benzodiazepines Screen Neg NEGATIVE Urine Cocaine Screen Neg NEGATIVE Urine Cannabinoids Screen Neg NEGATIVE Troponin I High Sensitivity 6 </=54 ng/L Test 01/13/25 18:38 Range/Units B-Type Natriuretic Peptide 16.57 0-100 pg/mL Lipase 44 12-53 U/L Plasma/Serum Blood Alcohol < 3.0 <10 mg/dL PATIENT: NANCY ORELLANA ACCT: [id number] UNIT: [id number] : 1960 LOC: ER ROOM / BED: / AGE / SEX: 64 / M ADM STATUS: REG ER SERVICE 6000 ORDERING PHYSICIAN: GEOVANI PRADHAN MD PROCEDURE(s): ABPL - CT AB PEL WO CON-NO ORAL OR IV REASON: luq pain ORDER NUMBER(s): [id number], ACCESSION NUMBER(s): [id number] Procedure: CT CT AB PEL WO CON-NO ORAL OR IV 01/13/2025 05:59 PM Indication: luq pain Comparison Study: None Technique: Axial images were obtained and reformatted in coronal and sagittal planes. All CT scans at this medical facility are performed using dose modulation techniques as appropriate to a performed exam including the following: Automated exposure control was utilized; adjustment of the MA and/or KV according to patient size; and use of iterative reconstruction technique. CT Dose: CTDI volume is 23.28 mGy. Dose-length product is 1257.81 mGy*cm FINDINGS: Lower Chest: Unremarkable. Hepatobiliary: Nodular liver contour. Large, 2 cm calcified gallstone is seen in the contracted gallbladder. No intrahepatic or extrahepatic ductal dilatation. Spleen: Unremarkable. Pancreas: Unremarkable. Adrenal Glands: Unremarkable. tract: The kidneys are normal in size bilaterally without hydronephrosis or nephrolithiasis. The bilateral kidneys are lobular in contour. A 2.5 cm solid mass is seen arising from lateral cortex of the lower pole of the left kidney. A subcentimeter cortical based calcification noted in the upper pole of the left kidney. The urinary bladder is unremarkable. GI tract: The stomach is grossly normal in appearance. No evidence of small bowel obstruction. The large bowel is unremarkable. The appendix is not visualized. No inflammatory change is noted in the right lower quadrant. Lymphatics: No mesenteric, retroperitoneal or periportal lymphadenopathy. Vasculature: Aorta is normal in caliber. Scattered calcified plaques are noted. Pelvic Organs: Unremarkable Bones/soft tissues: No acute abnormality. Degenerative changes of the lumbar spine noted. Small fat-containing umbilical hernia. Other: None. IMPRESSION: 1. A 2.5 cm solid-appearing left renal mass is concerning for renal cell carcinoma. This should be further evaluated by multiphasic abdominal CT scan or MRI. 2. No hydronephrosis or hydroureter. 3. Cholelithiasis with no evidence cholecystitis. 4. Nodular liver contour suggestive of cirrhosis. ATED BY: ANA MARIA DICK MD DICTATED DATE/TIME: 01/13/251927 SIGNED BY: ANA MARIA DICK MD SIGNED DATE/TIME: 01/13/251927 CC: Assessment 2.5 cm solid left renal mass Plan/Recommendation Consult IR for cryoablation of left renal mass MRI pending Plan discussed with: Patient, Other STEPHANY MUNOZ MD Jan 14, 2025 09:37
--- NOTE | 2025-01-14 10:25 | DVH ---
MRI Abdomen, with and without IV Contrast Exam Date: 01/14/2025 08:15 AM Comparison: None History: RENAL MASS Technique: Multisequence multiplanar MRI images were obtained of the abomen. MRCP including 3D SPACE, Radial 3D slabs and SPACE 3D MIP images 20 mL of clariscan was administered intravenously during this examination. Initial imaging is obtain ed without intravenous contrast. Findings: Liver: The liver is normal in size without focal lesions. Normal liver contour. Spleen: Unremarkable. Pancreas: The pancreas is normal in appearance without focal lesions. Gallbladder and ducts: Cholelithiasis noted without secondary findings of cholecystitis or biliary ob struction. The cystic duct, right and left hepatic ducts, common hepatic duct, and common bile ducts are unremarkable. The pancreatic duct is within normal limits. Adrenal glands: Unremarkable. Kidneys: There are left renal cysts including proteinaceous/ hemorrhagic left renal cysts. No suspici ous enhancing left renal mass.. No hydronephrosis. Visualized bowel: Grossly unremarkable. Vasculature: Unremarkable. Lymphadenopathy: No evidence for lymphadenopathy. Ascites: Absent. Musculoskeletal: Bone marrow signal is normal. IMPRESSION: 1. Left renal cysts including proteinaceous/ hemorrhagic left renal cysts. No definite suspicious en hancing left renal mass. This could be confirmed with renal ultrasound. Recommend follow-up MRI of th e abdomen with contrast in 3-6 months to ensure stability. Cholelithiasis. HS:Richard
[2025-01-14] MEDS: ENOXAPARIN SOD 40 MG/0.4 ML SYRINGE SC SCH (11:04)
[2025-01-14] MEDS: NIFEdipine ER 30 MG TAB PO SCH (11:04)
--- NOTE | 2025-01-14 18:44 | DVHPNRES ---
Progress Note Date Seen: Jan 14, 2025 Resident Creating Document: RAFFY WELCH RESIDENT Has the PT tested + for MRSA If YES, has PT been informed?: No Medical Necessity Reason Pt with a Central, PICC or Fol: No Subjective Review of Systems 64-year-old male patient with past medical history of hypertension, cerebrovascular accident on 2018 with residual deficits on right-sided weakness right upper and right lower extremity, brain aneurysm and chronic back pain due to herniated lumbar discs, patient presented to the hospital with a chief complaint of abdominal pain located in the left upper quadrant described as dull that gets worse by change in position, patient is able to walk but physical activity is very limited. He reports using methamphetamines and marijuana he denies using alcohol cocaine or any other drug. Ready was consulted after CT scan of the abdomen showed a 2.5 cm mass, they recommend radiology evaluation to proceed with a cryoablation of the left renal mass. Special Education Kindergarten Teacher were consulted regarding his homelessness status. ROS: Constitutional: No: Fever, Chills, Sweats, Weakness, Malaise, Other Eyes: No: Pain, Vision change, Conjunctivae inflammation, Eyelid inflammation, Other, Redness ENT: No: Ear pain, Ear discharge, Nose pain, Nose discharge, Nose congestion, Mouth pain, Mouth swelling, Throat pain, Throat swelling, Other Respiratory: No Wheezing, Hemoptysis, Pleuritic Pain, Sputum, Wheezing, Other Cardiovascular: No: Chest Pain, Palpitations, Orthopnea, Paroxysmal Noc. Dyspnea, Edema, Lt Headedness, Other Gastrointestinal: No: Nausea, Vomiting, Abdominal Pain, Diarrhea, Constipation, Melena, Hematochezia, Other Musculoskeletal: No: other, neck pain, shoulder pain, arm pain, back pain, hand pain, leg pain, foot pain Neurological:; yes: Weakness, Incoordination no:Change in speech, Confusion, Seizures Patient reports: No new complaints Changes from previous H/P or p: No Changes Objective vital signs Vital Sign Date Time Temp Pulse Resp B/P (MAP) Pulse Ox O2 Delivery O2 Flow Rate FiO2 01/14/25 17:00 98.6 69 19 122/53 (76) 94 98.6 01/13/25 22:45 Room Air* 0 21 Total Intake and Output 01/13/25 01/13/25 01/14/25 15:00 23:00 07:00 Intake Total 0 ml Output Total 0 ml Balance 0 ml medications Current Medications Medications Dose Ordered Sig/Mary Route Start Time Stop Time Status Last Admin Dose Admin Enoxaparin Sodium 40 mg DAILY SC 01/14/25 10:00 01/14/25 11:04 40 MG Nifedipine 60 mg DAILY PO 01/14/25 10:00 01/14/25 11:04 60 MG Acetaminophen 650 mg Q4HP PRN PO 01/13/25 21:15 Acetaminophen/ Hydrocodone Bitart 1 tab Q6HPRN PRN PO 01/13/25 21:15 Atorvastatin Calcium 40 mg HS PO 01/13/25 22:00 01/14/25 01:21 40 MG Examination General Appearance: Alert, Oriented X3, Cooperative, No acute distress HEENT: Atraumatic, PERRLA, EOMI, Mucous membrane moist/pink Respiratory: Clear to auscultation, Normal air movement Cardiovascular: Regular rate, Normal S1, Normal S2, No murmurs, no chest wall tenderness Abdominal: Left-sided abdominal tenderness, abdomen is soft, nondistended, normal bowel sounds, no organomegaly Extremities: No clubbing, No cyanosis, No edema, Normal pulses, No tenderness/swelling Skin: No rashes, No breakdown, No significant lesion Neuro: Right-sided residual deficits due to previous CVA, right upper limb power 2/5 and right lower limb power 3/5 Psych/Mental Status: Mental status NL, Mood NL laboratory and microbiology Laboratory Tests 01/14/25 05:22 Test 01/14/25 05:22 Range/Units Serum Glucose 108 H 74-106 mg/dL Microbiology Date/Time Source Procedure Growth Status 01/14/25 06:50 Nose MRSA Screen - Final Complete Labs and/or images reviewed: Labs reviewed by me, Image(s) reviewed by me Problem List/Assessment/Plan Problem List/Assessment/Plan #Intractable abdominal pain, likely due to left renal cyst, cannot rule out Renal cell carcinoma #Possible renal cell carcinoma -CT scan shows 2.5 cm solid-appearing left renal mass but no hydroureter or hydronephrosis -Consult Urology, possible outpatient reevaluation (MRI) -outpatient cryoablation -ss consulted regarding homelessness status #Cholelithiasis, without cholecystitis - Seen on CT Abdomen - outpatient follow up #KEYLA on CKD grade 2, likely VMN IV fluid #Possible liver cirrhosis #Transaminitis,resolving Abdominal CT scan shows, nodular liver contour suggestive of cirrhosis monitor #Asymptomatic hypercalcemia #History of CVA #Hypertension #History of Brain aneurysm -Nifedipine 60 mg daily -Atorvastatin #Diet: -Cardiac #Prophylaxis -Lovenox case discussed with Dr Estrada Goals of care discussed with the patient for 32 minutes Code status: Full code Plan discussed with: Patient My Orders My Orders Orders - RAFFY WELCH Procedure Category Date Status Time * Special Education Kindergarten Teacher CONS 01/14/25 Transmitted Consult Date of Service: Jan 14, 2025 Billing Provider: NANCY ESTRADA MD Common Visit Codes: [id number] INP/OBS CARE(HIGH) RAFFY WELCH RESIDENT Jan 14, 2025 18:44 NANCY ESTRADA MD Jan 17, 2025 16:05
[2025-01-15 01:00] VITALS: BP 119/59; PULSE 65; RESP 17; TEMP 98.3; O2SAT 93
[2025-01-15 05:00] VITALS: BP 133/64; PULSE 68; RESP 17; TEMP 98.6; O2SAT 91
[2025-01-15 08:45] LABS: Albumin 3.9 g/dL (3.2-4.8); Alkaline Phosphatase 47 U/L (46-116); Anion Gap 11 (5-15); Aspartate Aminotransferase 39 U/L (13-40); Blood Urea Nitrogen 14 mg/dL (9-23); Calcium 9.4 mg/dL (8.7-10.4); Carbon Dioxide 25 mmol/L (20-31); Chloride 103 mmol/L (98-107); Glucose 100 mg/dL (74-106); Potassium 3.7 mmol/L (3.5-5.1); Sodium 139 mmol/L (136-145); Total Protein 6.8 g/dL (5.7-8.2)
[2025-01-15 08:46] LABS: Bilirubin, Total 0.8 mg/dL (0.2-1.0)
[2025-01-15 08:48] LABS: Alanine Aminotransferase 56 U/L (7-40)
--- NOTE | 2025-01-15 10:31 | DVH ---
EXAM: US Retroperitoneal Limited, Renal CLINICAL INDICATION: left renal mass TECHNIQUE: Real-time limited ultrasound of the retroperitoneum with image documentation. COMPARISON: None FINDINGS: RIGHT KIDNEY: Right kidney measures up to 10.8 cm. No stones. No hydronephrosis. LEFT KIDNEY: Left kidney measures up to 11.6 cm. 2.7 cm left renal cyst. No stones. No hydroneph rosis. OTHER FINDINGS: . IMPRESSION: 2.7 cm left renal cyst.
--- NOTE | 2025-01-15 15:40 | DVHPNRES ---
Progress Note Date Seen: Jan 15, 2025 Resident Creating Document: RAFFY WELCH RESIDENT Has the PT tested + for MRSA If YES, has PT been informed?: No Medical Necessity Reason Pt with a Central, PICC or Fol: No Subjective Review of Systems Patient was examined at bedside, MRI was reviewed and it showed a 2.5 cm Left renal cysts including proteinaceous/ hemorrhagic left renal cysts. No definite suspicious enhancing left renal mass.kidney ultrasound 2.7 cm left renal cyst. Radiology was consulted , they recommend follow-up MRI of the abdomen with contrast in 3-6 months to ensure stability. human resources services specialist consult for skilled nursing placement still pending. Patient was started on full liquid diet, tolerates well so will advance to soft mechanical. Patient reports: No new complaints Changes from previous H/P or p: No Changes Review of Systems: HEENT:Normal, CVS:Normal, RESPIRATORY:Normal, GI:Normal, :Normal, MSK:Normal, NEURO:Normal Objective vital signs Vital Sign Date Time Temp Pulse Resp B/P (MAP) Pulse Ox O2 Delivery O2 Flow Rate FiO2 01/15/25 08:00 Room Air* 0 21 01/15/25 05:00 98.6 68 17 133/64 (87) 91 98.6 Total Intake and Output 01/14/25 01/14/25 01/15/25 15:00 23:00 07:00 Intake Total 1580 ml 300 ml Balance 1580 ml 300 ml medications Current Medications Medications Dose Ordered Sig/Mary Route Start Time Stop Time Status Last Admin Dose Admin Enoxaparin Sodium 40 mg DAILY SC 01/14/25 10:00 01/15/25 10:00 40 MG Nifedipine 60 mg DAILY PO 01/14/25 10:00 01/14/25 11:04 60 MG Acetaminophen 650 mg Q4HP PRN PO 01/13/25 21:15 Acetaminophen/ Hydrocodone Bitart 1 tab Q6HPRN PRN PO 01/13/25 21:15 Atorvastatin Calcium 40 mg HS PO 01/13/25 22:00 01/14/25 22:03 40 MG Examination: GENERAL:Normal, HEENT:Normal, NECK:Normal, LUNGS:Normal, CVS:Normal, ABDOMEN:Normal, MSK:Normal, SKIN:Normal, NEURO:Normal, :Abnormal laboratory and microbiology Laboratory Tests 01/15/25 05:39 01/14/25 05:22 Test 01/15/25 05:39 Range/Units Serum Glucose 100 74-106 mg/dL Microbiology Date/Time Source Procedure Growth Status 01/14/25 06:50 Nose MRSA Screen - Final Complete Problem List/Assessment/Plan Problem List/Assessment/Plan #Intractable abdominal pain, likely due to left renal cyst, cannot rule out Renal cell carcinoma #Possible renal cell carcinoma - CT scan shows 2.5 cm solid-appearing left renal mass but no hydroureter or hydronephrosis - Kidney US confirmed 2,7 cm renal cyst. - 3-6 months (MRI) follow up in the outpatient. - ss consulted regarding homelessness status, skilled nursing placement pending #Cholelithiasis, without cholecystitis - Seen on CT Abdomen - outpatient follow up #KEYLA on CKD grade 2, likely VMN IV fluid #Possible liver cirrhosis #Transaminitis,resolving Abdominal CT scan shows, nodular liver contour suggestive of cirrhosis monitor #Asymptomatic hypercalcemia #History of CVA #Hypertension #History of Brain aneurysm -Nifedipine 60 mg daily -Atorvastatin #Diet: -Cardiac #Prophylaxis -Lovenox case discussed with Goals of care discussed with the patient for 32 minutes Code status: Full code Plan discussed with: Patient My Orders My Orders Orders - RAFFY WELCH Procedure Category Date Status Time Kidney US 01/15/25 Resulted 08:08 Mechanical Soft Diet DIET 01/15/25 Transmitted Dinner Date of Service: Jan 15, 2025 Billing Provider: NIRMAL ARROYO MD Common Visit Codes: [id number] INP/OBS CARE(HIGH) RAFFY WELCH Jan 15, 2025 15:40 NIRMAL ARROYO MD Jan 15, 2025 21:34
[2025-01-15 17:00] VITALS: BP 115/71; PULSE 71; RESP 17; TEMP 97.7; O2SAT 95
[2025-01-15 20:00] VITALS: PULSE 67; RESP 20; O2SAT 94
[2025-01-15 21:00] VITALS: BP 132/68; PULSE 67; RESP 20; TEMP 98; O2SAT 94
[2025-01-16 05:00] VITALS: BP 134/85; PULSE 64; RESP 18; TEMP 98.8; O2SAT 96
[2025-01-16 08:51] VITALS: BP 142/76; PULSE 58; RESP 17; TEMP 98; O2SAT 95
[2025-01-16 13:45] VITALS: BP 126/78; PULSE 63; RESP 17; TEMP 98; O2SAT 94
--- NOTE | 2025-01-16 15:32 | DVHPNRES ---
Progress Note Date Seen: Jan 16, 2025 Resident Creating Document: MARY REBOLLEDO RESIDENT Has the PT tested + for MRSA If YES, has PT been informed?: No Medical Necessity Reason Pt with a Central, PICC or Fol: No Subjective Review of Systems Patient seen and examined at the bedside Patient does not report of any abdominal pain. Denies dysuria Reported a bowel movement yesterday Objective vital signs Vital Sign Date Time Temp Pulse Resp B/P (MAP) Pulse Ox O2 Delivery O2 Flow Rate FiO2 01/16/25 13:45 98.0 63 17 126/78 (94) 94 98.0 01/16/25 08:00 Room Air* 0 21 Total Intake and Output 01/15/25 01/15/25 01/16/25 15:00 23:00 07:00 Intake Total 360 ml 400 ml Balance 360 ml 400 ml medications Current Medications Medications Dose Ordered Sig/Mary Route Start Time Stop Time Status Last Admin Dose Admin Enoxaparin Sodium 40 mg DAILY SC 01/14/25 10:00 01/16/25 09:39 40 MG Nifedipine 60 mg DAILY PO 01/14/25 10:00 01/16/25 09:38 60 MG Acetaminophen 650 mg Q4HP PRN PO 01/13/25 21:15 Acetaminophen/ Hydrocodone Bitart 1 tab Q6HPRN PRN PO 01/13/25 21:15 Atorvastatin Calcium 40 mg HS PO 01/13/25 22:00 01/15/25 20:34 40 MG Examination Constitutional: Patient is alert and oriented to the place and person and does not appear to be in any acute distress Gen - no pallor, no icterus, no cyanosis, no clubbing, no LAD, no edema . Skin - Patients skin is warm and dry. HEENT - normocephalic, atraumatic, moist mucous membranes. Neck - full ROM, no LAD Pulmonary - B/L vesicular breath sounds. no crackles , no wheezing, no stridor. cardiovascular - normal S1,S2 heard. no murmurs heard. GI - soft abdomen without tenderness to palpation. no hepatospleenomegaly. Bowel sounds normoactive Neurological - Bilateral upper extremity strength 5/5, bilateral lower extremity strength 5/5, no facial droop, normal speech, no tremor, no sensory deficiets. laboratory and microbiology Laboratory Tests 01/15/25 05:39 01/14/25 05:22 Test 01/15/25 05:39 Range/Units Serum Glucose 100 74-106 mg/dL Microbiology Date/Time Source Procedure Growth Status 01/14/25 06:50 Nose MRSA Screen - Final Complete Problem List/Assessment/Plan Problem List/Assessment/Plan #Intractable abdominal pain, likely due to left renal cyst, cannot rule out Renal cell carcinoma #Possible renal cell carcinoma - CT scan shows 2.5 cm solid-appearing left renal mass but no hydroureter or hydronephrosis - Kidney US confirmed 2,7 cm renal cyst. - 3-6 months (MRI) follow up in the outpatient. - ss consulted regarding homelessness status, fpc placement pending #Cholelithiasis, without cholecystitis - Seen on CT Abdomen - outpatient follow up #KEYLA on CKD grade 2, likely VMN Resolved, creatinine and GFR within normal limits #Possible liver cirrhosis #Transaminitis,resolving Abdominal CT scan shows, nodular liver contour suggestive of cirrhosis monitor #Asymptomatic hypercalcemia #History of CVA #Hypertension #History of Brain aneurysm -Nifedipine 60 mg daily -Atorvastatin #Diet: -Cardiac #Prophylaxis -Lovenox Patient is pending placement to a homeless fpc. case discussed with Goals of care discussed with the patient for 22 minutes Code status: Full code Plan discussed with: Patient Dietary Evaluation Review Comments: 1) Add cardiac restriction to texture-modified diet 2) Follow-up with flatbed company driver/tours captain 3) Promote optimal PO intake 4) Continue to monitor I&O, labs, and skin integrity Expected Outcomes/Goals: 1) appetite and labs to improve 2) diet to advance 3) f/u in 5 days Date of Service: Jan 16, 2025 Billing Provider: NIRMAL ARROYO MD Common Visit Codes: [id number] INP/OBS CARE(HIGH) MARY REBOLLEDO RESIDENT Jan 16, 2025 15:31 NIRMAL ARROYO MD Jan 17, 2025 07:23
[2025-01-16 16:45] VITALS: BP 103/72; PULSE 87; RESP 20; TEMP 98.2; O2SAT 96
[2025-01-16 19:30] VITALS: PULSE 75; RESP 17; O2SAT 94
[2025-01-16 21:00] VITALS: BP 128/65; PULSE 69; RESP 16; TEMP 99.7; O2SAT 94
[2025-01-17] VITALS (8 sets, daily range): BP systolic 114–154; BP diastolic 66–98; PULSE 55–66; RESP 16–20; TEMP 97.8–98.6; O2SAT 94–95
[2025-01-17 08:49] LABS: Hepatitis B Surface Antigen Negative (Negative)
[2025-01-17 10:32] LABS: Hepatitis A Ab IgM Negative; Hepatitis B Core IgM Negative (Negative); Hepatitis C Antibody Positive (Negative)
--- NOTE | 2025-01-17 15:09 | DVHPN2 ---
Progress Note - Dictate Date Seen: Jan 17, 2025 Has the PT tested + for MRSA If YES, has PT been informed?: No Medical Necessity Reason Pt with a Central, PICC or Fol: No Medical Necessity Reason 2.5 left renal mass reported initially to be an enhancing solid lesion on CT scan is now reported to be a simple renal cyst on ultrasound vital signs Vital Sign Date Time Temp Pulse Resp B/P (MAP) Pulse Ox O2 Delivery O2 Flow Rate FiO2 01/17/25 13:00 98.0 66 18 154/98 (116) 95 98.0 01/17/25 08:00 Room Air* 0 21 Total Intake and Output 01/16/25 01/16/25 01/17/25 15:00 23:00 07:00 Intake Total 800 ml 818 ml Balance 800 ml 818 ml medications Current Medications Medications Dose Ordered Sig/Mary Route Start Time Stop Time Status Last Admin Dose Admin Enoxaparin Sodium 40 mg DAILY SC 01/14/25 10:00 01/17/25 09:31 40 MG Nifedipine 60 mg DAILY PO 01/14/25 10:00 01/17/25 09:32 60 MG Acetaminophen 650 mg Q4HP PRN PO 01/13/25 21:15 Acetaminophen/ Hydrocodone Bitart 1 tab Q6HPRN PRN PO 01/13/25 21:15 Atorvastatin Calcium 40 mg HS PO 01/13/25 22:00 01/16/25 22:49 40 MG laboratory and microbiology Laboratory Tests 01/15/25 05:39 01/14/25 05:22 Test 01/15/25 05:39 Range/Units Serum Glucose 100 74-106 mg/dL Assessment/Plan 2.5 cm solid left renal mass--> now reported to be proteinacious cyst on MRI and simple renal cyst on US. No acute intervention indicated. Prognosis Good prognosis informed to the patient Dietary Evaluation Review Comments: 1) Add cardiac restriction to texture-modified diet 2) Follow-up with truck car and bus cleaner/cdl truck driver 3) Promote optimal PO intake 4) Continue to monitor I&O, labs, and skin integrity Expected Outcomes/Goals: 1) appetite and labs to improve 2) diet to advance 3) f/u in 5 days Plan discussed with: Patient SETPHANY MUNOZ MD Jan 17, 2025 15:09
--- NOTE | 2025-01-17 17:11 | DVHPNRES ---
Progress Note Date Seen: Jan 17, 2025 Resident Creating Document: RAFFY WELCH RESIDENT Has the PT tested + for MRSA If YES, has PT been informed?: No Medical Necessity Reason Pt with a Central, PICC or Fol: No Subjective Review of Systems Patient examined at bedside, he reports no acute complaints. Diet advanced to soft mechanical. Loss Prevention Coordinator consult for homelessness, custodial placement still pending. Renal ultrasound showed left renal cyst, ruled out renal cell carcinoma Patient reports: No new complaints Changes from previous H/P or p: No Changes Review of Systems: HEENT:Normal, CVS:Normal, RESPIRATORY:Normal, GI:Normal, :Normal, MSK:Normal, NEURO:Normal Objective vital signs Vital Sign Date Time Temp Pulse Resp B/P (MAP) Pulse Ox O2 Delivery O2 Flow Rate FiO2 01/17/25 13:00 98.0 66 18 154/98 (116) 95 98.0 01/17/25 08:00 Room Air* 0 21 Total Intake and Output 01/16/25 01/16/25 01/17/25 15:00 23:00 07:00 Intake Total 800 ml 818 ml Balance 800 ml 818 ml medications Current Medications Medications Dose Ordered Sig/Mary Route Start Time Stop Time Status Last Admin Dose Admin Enoxaparin Sodium 40 mg DAILY SC 01/14/25 10:00 01/17/25 09:31 40 MG Nifedipine 60 mg DAILY PO 01/14/25 10:00 01/17/25 09:32 60 MG Acetaminophen 650 mg Q4HP PRN PO 01/13/25 21:15 Acetaminophen/ Hydrocodone Bitart 1 tab Q6HPRN PRN PO 01/13/25 21:15 Atorvastatin Calcium 40 mg HS PO 01/13/25 22:00 01/16/25 22:49 40 MG Examination: GENERAL:Normal, HEENT:Normal, NECK:Normal, LUNGS:Normal, CVS:Normal, ABDOMEN:Normal, MSK:Normal, SKIN:Normal, NEURO:Normal, :Normal laboratory and microbiology Laboratory Tests 01/15/25 05:39 01/14/25 05:22 Test 01/15/25 05:39 Range/Units Serum Glucose 100 74-106 mg/dL Microbiology Date/Time Source Procedure Growth Status 01/14/25 06:50 Nose MRSA Screen - Final Complete Problem List/Assessment/Plan Problem List/Assessment/Plan #Intractable abdominal pain, likely due to left renal cyst, cannot rule out Renal cell carcinoma # ruled out renal cell carcinoma - CT scan shows 2.5 cm solid-appearing left renal mass but no hydroureter or hydronephrosis - Kidney US confirmed 2,7 cm renal cyst. - ss consulted regarding homelessness status, custodial placement pending #Cholelithiasis, without cholecystitis - Seen on CT Abdomen - outpatient follow up #KEYLA on CKD grade 2, likely VMN IV fluid #Possible liver cirrhosis #Transaminitis,resolving Abdominal CT scan shows, nodular liver contour suggestive of cirrhosis monitor #Asymptomatic hypercalcemia #History of CVA #Hypertension #History of Brain aneurysm -Nifedipine 60 mg daily -Atorvastatin #Diet: -Cardiac #Prophylaxis -Lovenox case discussed with Goals of care discussed with the patient for 32 minutes Code status: Full code Plan discussed with: Patient Dietary Evaluation Review Comments: 1) Add cardiac restriction to texture-modified diet 2) Follow-up with sales hunter/clip on sunglasses inspector 3) Promote optimal PO intake 4) Continue to monitor I&O, labs, and skin integrity Expected Outcomes/Goals: 1) appetite and labs to improve 2) diet to advance 3) f/u in 5 days Date of Service: Jan 17, 2025 Billing Provider: NANCY ESTRADA MD Common Visit Codes: [id number] INP/OBS CARE(HIGH) RAFFY WELCH RESIDENT Jan 17, 2025 17:11 NANCY ESTRADA MD Jan 18, 2025 14:47
[2025-01-18] VITALS (7 sets, daily range): BP systolic 114–143; BP diastolic 60–99; PULSE 59–73; RESP 18–20; TEMP 98–98.4; O2SAT 94–96
--- NOTE | 2025-01-18 14:45 | DVHPNRES ---
Progress Note Date Seen: Jan 18, 2025 Resident Creating Document: RAFFY WELCH RESIDENT Has the PT tested + for MRSA If YES, has PT been informed?: No Medical Necessity Reason Pt with a Central, PICC or Fol: No Subjective Review of Systems Patient examined at bedside, he reports no acute complaints. Bed Worker consult for homelessness, intermediate placement still pending. Renal ultrasound showed left renal cyst, ruled out renal cell carcinoma Patient reports: No new complaints Changes from previous H/P or p: No Changes Objective vital signs Vital Sign Date Time Temp Pulse Resp B/P (MAP) Pulse Ox O2 Delivery O2 Flow Rate FiO2 01/18/25 12:41 98.3 69 20 143/78 (99) 96 98.3 01/17/25 20:00 Room Air* 0 21 Total Intake and Output 01/17/25 01/17/25 01/18/25 15:00 23:00 07:00 Intake Total 750 ml 510 ml Balance 750 ml 510 ml medications Current Medications Medications Dose Ordered Sig/Mary Route Start Time Stop Time Status Last Admin Dose Admin Enoxaparin Sodium 40 mg DAILY SC 01/14/25 10:00 01/18/25 08:56 40 MG Nifedipine 60 mg DAILY PO 01/14/25 10:00 01/18/25 09:07 60 MG Acetaminophen 650 mg Q4HP PRN PO 01/13/25 21:15 Acetaminophen/ Hydrocodone Bitart 1 tab Q6HPRN PRN PO 01/13/25 21:15 Atorvastatin Calcium 40 mg HS PO 01/13/25 22:00 01/17/25 21:29 40 MG Examination: GENERAL:Normal, HEENT:Normal, NECK:Normal, LUNGS:Normal, CVS:Normal, ABDOMEN:Normal, MSK:Normal, SKIN:Normal, NEURO:Normal, :Normal laboratory and microbiology Laboratory Tests 01/15/25 05:39 01/14/25 05:22 Test 01/15/25 05:39 Range/Units Serum Glucose 100 74-106 mg/dL Microbiology Date/Time Source Procedure Growth Status 01/14/25 06:50 Nose MRSA Screen - Final Complete Problem List/Assessment/Plan Problem List/Assessment/Plan #Intractable abdominal pain, likely due to left renal cyst, cannot rule out Renal cell carcinoma # ruled out renal cell carcinoma - CT scan shows 2.5 cm solid-appearing left renal mass but no hydroureter or hydronephrosis - Kidney US confirmed 2,7 cm renal cyst. - ss consulted regarding homelessness status, intermediate placement pending #Cholelithiasis, without cholecystitis - Seen on CT Abdomen - outpatient follow up #KEYLA on CKD grade 2, likely VMN IV fluid #Possible liver cirrhosis #Transaminitis,resolving Abdominal CT scan shows, nodular liver contour suggestive of cirrhosis monitor #Asymptomatic hypercalcemia #History of CVA #Hypertension #History of Brain aneurysm -Nifedipine 60 mg daily -Atorvastatin #Diet: -Cardiac #Prophylaxis -Lovenox case discussed with Goals of care discussed with the patient for 32 minutes Code status: Full code Plan discussed with: Patient Dietary Evaluation Review Comments: 1) Add cardiac restriction to texture-modified diet 2) Follow-up with claim agent/online community manager 3) Promote optimal PO intake 4) Continue to monitor I&O, labs, and skin integrity Expected Outcomes/Goals: 1) appetite and labs to improve 2) diet to advance 3) f/u in 5 days Date of Service: Jan 18, 2025 Billing Provider: NANCY ESTRADA MD Common Visit Codes: [id number] INP/OBS CARE(HIGH) RAFFY WELCH RESIDENT Jan 18, 2025 14:45 NANCY ESTRADA MD Jan 20, 2025 08:28
[2025-01-19 01:00] VITALS: BP 142/79; PULSE 60; RESP 18; TEMP 98; O2SAT 96
[2025-01-19 05:00] VITALS: BP 133/76; PULSE 64; RESP 18; TEMP 97.9; O2SAT 92
[2025-01-19 08:30] VITALS: BP 139/89; PULSE 65; RESP 20; TEMP 98.6; O2SAT 95
[2025-01-19 13:30] VITALS: BP 125/78; PULSE 64; RESP 20; TEMP 98.7; O2SAT 95
--- NOTE | 2025-01-19 15:32 | DVHPNRES ---
Progress Note Date Seen: Jan 19, 2025 Resident Creating Document: RAFFY WELCH RESIDENT Has the PT tested + for MRSA If YES, has PT been informed?: No Medical Necessity Reason Pt with a Central, PICC or Fol: No Subjective Review of Systems patient examined at bedside, no acute complaints.patient is stable administrator social welfare working on long-term placement. Patient reports: No new complaints Changes from previous H/P or p: No Changes Review of Systems: HEENT:Normal, CVS:Normal, RESPIRATORY:Normal, GI:Normal, :Normal, MSK:Normal, NEURO:Normal Objective vital signs Vital Sign Date Time Temp Pulse Resp B/P (MAP) Pulse Ox O2 Delivery O2 Flow Rate FiO2 01/19/25 13:30 98.7 64 20 125/78 (94) 95 98.7 01/19/25 08:15 Room Air* 0 21 Total Intake and Output 01/18/25 01/18/25 01/19/25 15:00 23:00 07:00 Intake Total 980 ml 620 ml Output Total 4 ml Balance 976 ml 620 ml medications Current Medications Medications Dose Ordered Sig/Mary Route Start Time Stop Time Status Last Admin Dose Admin Enoxaparin Sodium 40 mg DAILY SC 01/14/25 10:00 01/19/25 10:54 40 MG Nifedipine 60 mg DAILY PO 01/14/25 10:00 01/19/25 10:54 60 MG Acetaminophen 650 mg Q4HP PRN PO 01/13/25 21:15 Acetaminophen/ Hydrocodone Bitart 1 tab Q6HPRN PRN PO 01/13/25 21:15 Atorvastatin Calcium 40 mg HS PO 01/13/25 22:00 01/18/25 19:58 40 MG Examination: GENERAL:Normal, HEENT:Normal, NECK:Normal, LUNGS:Normal, CVS:Normal, ABDOMEN:Normal, MSK:Normal, SKIN:Normal, NEURO:Normal, :Normal laboratory and microbiology Laboratory Tests 01/15/25 05:39 01/14/25 05:22 Test 01/15/25 05:39 Range/Units Serum Glucose 100 74-106 mg/dL Microbiology Date/Time Source Procedure Growth Status 01/14/25 06:50 Nose MRSA Screen - Final Complete Problem List/Assessment/Plan Problem List/Assessment/Plan #Intractable abdominal pain, likely due to left renal cyst, cannot rule out Renal cell carcinoma # ruled out renal cell carcinoma - CT scan shows 2.5 cm solid-appearing left renal mass but no hydroureter or hydronephrosis - Kidney US confirmed 2,7 cm renal cyst. - ss consulted regarding homelessness status, long-term placement pending #Cholelithiasis, without cholecystitis - Seen on CT Abdomen - outpatient follow up #KEYLA on CKD grade 2, likely VMN - resolved #Possible liver cirrhosis #Transaminitis,resolving Abdominal CT scan shows, nodular liver contour suggestive of cirrhosis monitor #Asymptomatic hypercalcemia #History of CVA #Hypertension #History of Brain aneurysm -Nifedipine 60 mg daily -Atorvastatin #Diet: -Cardiac #Prophylaxis - patient is ambulating without assistance case discussed with Goals of care discussed with the patient for 32 minutes Code status: Full code Plan discussed with: Patient Dietary Evaluation Review Comments: 1) Add cardiac restriction to texture-modified diet 2) Follow-up with car salesman/angiographer 3) Promote optimal PO intake 4) Continue to monitor I&O, labs, and skin integrity Expected Outcomes/Goals: 1) appetite and labs to improve 2) diet to advance 3) f/u in 5 days Date of Service: Jan 19, 2025 Billing Provider: NANCY ESTRADA MD Common Visit Codes: [id number] INP/OBS CARE(HIGH) RAFFY WELCH RESIDENT Jan 19, 2025 15:32 NANCY ESTRADA MD Jan 20, 2025 08:43
[2025-01-19 16:47] VITALS: BP 121/89; PULSE 63; RESP 18; TEMP 98.1; O2SAT 94
[2025-01-20] VITALS (7 sets, daily range): BP systolic 120–154; BP diastolic 72–101; PULSE 60–72; RESP 16–19; TEMP 97.3–98.6; O2SAT 91–95
--- NOTE | 2025-01-20 17:23 | DVHPNRES ---
Progress Note Date Seen: Jan 20, 2025 Resident Creating Document: RAFFY WELCH RESIDENT Has the PT tested + for MRSA If YES, has PT been informed?: No Medical Necessity Reason Pt with a Central, PICC or Fol: No Subjective Review of Systems patient examined at bedside, no acute complaints.patient is stable clinical social work therapist working on custodial placement.still pending Patient reports: No new complaints Changes from previous H/P or p: No Changes Objective vital signs Vital Sign Date Time Temp Pulse Resp B/P (MAP) Pulse Ox O2 Delivery O2 Flow Rate FiO2 01/20/25 16:56 98.3 62 17 140/72 (94) 94 98.3 01/20/25 07:30 Room Air* 0 21 Total Intake and Output 01/19/25 01/19/25 01/20/25 15:00 23:00 07:00 Intake Total 800 ml 915 ml Balance 800 ml 915 ml medications Current Medications Medications Dose Ordered Sig/Mary Route Start Time Stop Time Status Last Admin Dose Admin Enoxaparin Sodium 40 mg DAILY SC 01/14/25 10:00 01/20/25 09:41 40 MG Nifedipine 60 mg DAILY PO 01/14/25 10:00 01/20/25 09:42 60 MG Acetaminophen 650 mg Q4HP PRN PO 01/13/25 21:15 Acetaminophen/ Hydrocodone Bitart 1 tab Q6HPRN PRN PO 01/13/25 21:15 Atorvastatin Calcium 40 mg HS PO 01/13/25 22:00 01/19/25 22:05 40 MG Examination: GENERAL:Normal, HEENT:Normal, NECK:Normal, LUNGS:Normal, CVS:Normal, ABDOMEN:Normal, MSK:Normal, SKIN:Normal, NEURO:Normal, :Normal laboratory and microbiology Laboratory Tests 01/15/25 05:39 01/14/25 05:22 Test 01/15/25 05:39 Range/Units Serum Glucose 100 74-106 mg/dL Microbiology Date/Time Source Procedure Growth Status 01/14/25 06:50 Nose MRSA Screen - Final Complete Problem List/Assessment/Plan Problem List/Assessment/Plan #Intractable abdominal pain, likely due to left renal cyst, cannot rule out Renal cell carcinoma # ruled out renal cell carcinoma - CT scan shows 2.5 cm solid-appearing left renal mass but no hydroureter or hydronephrosis - Kidney US confirmed 2,7 cm renal cyst. - ss consulted regarding homelessness status, custodial placement pending #Cholelithiasis, without cholecystitis - Seen on CT Abdomen - outpatient follow up #KEYLA on CKD grade 2, likely VMN - resolved #Possible liver cirrhosis #Transaminitis,resolving Abdominal CT scan shows, nodular liver contour suggestive of cirrhosis monitor #Asymptomatic hypercalcemia #History of CVA #Hypertension #History of Brain aneurysm -Nifedipine 60 mg daily -Atorvastatin #Diet: -Cardiac #Prophylaxis - patient is ambulating without assistance #smoking dependency - nicotine patches case discussed with Goals of care discussed with the patient for 32 minutes Code status: Full code Plan discussed with: Patient Dietary Evaluation Review Comments: 1) Add cardiac restriction to texture-modified diet 2) Follow-up with nursing specialist/shingle weaver 3) Promote optimal PO intake 4) Continue to monitor I&O, labs, and skin integrity Expected Outcomes/Goals: 1) appetite and labs to improve 2) diet to advance 3) f/u in 5 days Date of Service: Jan 20, 2025 Billing Provider: NANCY ESTRADA MD Common Visit Codes: [id number] INP/OBS CARE(MOD) RAFFY WELCH RESIDENT Jan 20, 2025 17:23 NANCY ESTRADA MD Jan 21, 2025 12:04
[2025-01-20] MEDS: NICOTINE 14 MG/24HR TOPICAL PATCH TD ONE (17:30)
[2025-01-21 01:26] VITALS: BP 144/77; PULSE 64; RESP 18; TEMP 98.1; O2SAT 95
[2025-01-21 05:36] VITALS: BP 137/80; PULSE 58; RESP 18; TEMP 98; O2SAT 93
--- NOTE | 2025-01-21 08:44 | DVHDS2 ---
Discharge Summary Date of Admission Jan 13, 2025 at 21:08 Date of Discharge: Jan 21, 2025 Labs/Diagnostic Data: Laboratory Results Test 01/15/25 05:39 01/14/25 05:22 01/13/25 22:09 01/13/25 20:44 Sodium Level 139 mmol/L (136-145) Potassium Level 3.7 mmol/L (3.5-5.1) Chloride Level 103 mmol/L (98-107) Carbon Dioxide Level 25 mmol/L (20-31) Anion Gap 11 (5-15) Blood Urea Nitrogen 14 mg/dL (9-23) Creatinine 1.08 mg/dL (0.700-1.30) Glomerular Filtration Rate Calc 77 mL/min (>90) BUN/Creatinine Ratio 13.0 (10.0-20.0) Serum Glucose 100 mg/dL (74-106) Calcium Level 9.4 mg/dL (8.7-10.4) Total Bilirubin 0.8 mg/dL (0.2-1.0) Aspartate Amino Transferase (AST) 39 U/L (13-40) Alanine Aminotransferase (ALT) 56 U/L (7-40) Alkaline Phosphatase 47 U/L (46-116) Total Protein 6.8 g/dL (5.7-8.2) Albumin 3.9 g/dL (3.2-4.8) White Blood Count 7.6 10^3/uL (4.4-10.8) Red Blood Count 4.94 10^6/uL (4.5-5.90) Hemoglobin 14.5 g/dL (13.5-17.5) Hematocrit 43.1 % (41.0-53.0) Mean Corpuscular Volume 87.2 fL (80.0-100.0) Mean Corpuscular Hemoglobin 29.4 pg (28.0-32.0) Mean Corpuscular Hemoglobin Concent 33.7 g/dL (32.0-36.0) Red Cell Distribution Width 14.6 % (11.8-14.3) Platelet Count 196 10^3/uL (140-450) Mean Platelet Volume 8.8 fL (6.9-10.8) Neutrophils (%) (Auto) 38.4 % (37.0-80.0) Lymphocytes (%) (Auto) 48.1 % (10.0-50.0) Monocytes (%) (Auto) 8.6 % (0.0-12.0) Eosinophils (%) (Auto) 4.4 % (0.0-7.0) Basophils (%) (Auto) 0.5 % (0.0-2.0) Neutrophils # (Auto) 2.9 10 ^3/uL (1.6-8.6) Lymphocytes # (Auto) 3.6 10 ^3/uL (0.4-5.4) Monocytes # (Auto) 0.6 10 ^3/uL (0-1.3) Eosinophils # (Auto) 0.3 10 ^3/uL (0-0.8) Basophils # (Auto) 0 10 ^3/uL (0-0.2) Nucleated Red Blood Cells 0.4 % Prothrombin Time 11.1 sec (9.3-11.8) Prothrombin Time INR 1.05 (0.9-1.15) Activated Partial Thromboplast Time 26.5 SEC (24.5-34.5) Hepatitis A IgM Antibody Negative Hepatitis B Surface Antigen Negative (Negative) Hepatitis B Core IgM Antibody Negative (Negative) Hepatitis C Antibody Positive (Negative) Influenza Type A Antigen Negative (Negative) Influenza Type B Antigen Negative (Negative) SARS-CoV-2 Antigen (Rapid) Negative (NEGATIVE) Urine Color Yellow (Yellow) Urine Clarity Clear (Clear) Urine pH 5.0 (5.0-9.0) Urine Specific Agenda 1.022 (1.001-1.035) Urine Protein Trace (Negative) Urine Ketones Negative (Negative) Urine Blood 1+ /uL (Negative) Urine Nitrite Negative (Negative) Urine Bilirubin Negative (Negative) Urine Urobilinogen 3 mg/dL (Negative) Urine Leukocyte Esterase Negative /uL (Negative) Urine RBC 3 /hpf (0 - 3) Urine Microscopic WBC 2 /HPF (0-3) Urine Squamous Epithelial Cells None seen /hpf (<5) Urine Bacteria None seen /hpf (None Seen) Urine Hyaline Casts Few /lpf (0 - 2) Urine Mucus Few (None Seen) Urine Glucose Normal mg/dL (Normal) Urine Opiates Screen Neg (NEGATIVE) Urine Fentanyl Screen Neg (NEGATIVE) Urine Barbiturates Screen Neg (NEGATIVE) Urine Phencyclidine Screen Neg (NEGATIVE) Urine Amphetamines Screen Pos (NEGATIVE) Urine Benzodiazepines Screen Neg (NEGATIVE) Urine Cocaine Screen Neg (NEGATIVE) Urine Cannabinoids Screen Neg (NEGATIVE) Test 01/13/25 20:39 01/13/25 18:38 Troponin I High Sensitivity 6 ng/L (</=54) B-Type Natriuretic Peptide 16.57 pg/mL (0-100) Lipase 44 U/L (12-53) Plasma/Serum Blood Alcohol < 3.0 mg/dL (<10) Other Laboratory Tests 01/15/25 05:39 01/14/25 05:22 Brief Hx & Hospital Course: 64 yo M with abdominal pain, initial CT showed concern for RCC. seen by urology, for bx by IR. On repeat imaging showed benign cyst. Patient to follow up with PCP. ss consult as patient will go back to [facility]. stable to dc Condition at Discharge: Good Final Diagnosis/Problems List #Intractable abdominal pain, likely due to left renal cyst # ruled out renal cell carcinoma #Cholelithiasis, without cholecystitis #KEYLA on CKD grade 2, likely VMN #Possible liver cirrhosis #Transaminitis,resolving #Asymptomatic hypercalcemia #History of CVA #Hypertension #History of Brain aneurysm Discharge Disposition: Home Discharge Instruct/Medications Diet: Regular Activity: No Restrictions, As Tolerated Follow Up/Referral: PCP 35 Discharge Statement: "Patient was advised to return to the ER or call 911 if any headaches, dizziness, shortness of breath, chest pain, abdominal pain, bleeding, fevers, or worsening of medical condition. Patient was counseled about treatment plan, medications, possible side effects, patientverbalized understanding. All questions were answered to the best of my ability. This discharge took greater then 30 minutes in planning, reviewing documentation, counseling the patient, and discussing with other team members." ASSESSMENT ASSESSMENT Assessment #Intractable abdominal pain, likely due to left renal cyst # ruled out renal cell carcinoma #Cholelithiasis, without cholecystitis #KEYLA on CKD grade 2, likely VMN #Possible liver cirrhosis #Transaminitis,resolving #Asymptomatic hypercalcemia #History of CVA #Hypertension #History of Brain aneurysm Date of Service: Jan 21, 2025 Billing Provider: NANCY ESTRADA MD Common Visit Codes: [id number] DISCH DAY >30min NANCY ESTRADA MD Jan 21, 2025 08:44
[2025-01-21 08:55] VITALS: BP 120/82; PULSE 62; RESP 18; TEMP 98.4; O2SAT 95
[2025-01-21] MEDS: NICOTINE 14 MG/24HR TOPICAL PATCH TD SCH (10:00)
[2025-01-21 10:08] VITALS: BP 120/82; PULSE 62; RESP 18; TEMP 98.4; O2SAT 95
== END 2025-01-21 09:50 | disposition left against medical advice (07) | DRG 468 ==
LOC: ER 17:33 → EDBD 17:33 → OVERFLOW 21:08 → CENTRAL 23:53
PROVIDERS: ADMIT Student in an Organized Health Care Education/Training Program; ATTEND Student in an Organized Health Care Education/Training Program
DX: N28.1 Cyst of kidney, acquired (principal); N17.0 Acute kidney failure with tubular necrosis; K74.60 Unspecified cirrhosis of liver; I69.351 Hemiplegia and hemiparesis following cerebral infarction affecting right dominant side; K80.20 Calculus of gallbladder without cholecystitis without obstruction; R74.01 Elevation of levels of liver transaminase levels; E83.52 Hypercalcemia; N28.89 Other specified disorders of kidney and ureter; N18.2 Chronic kidney disease, stage 2 (mild); Z53.29 Procedure and treatment not carried out because of patient's decision for other reasons; Z20.822 Contact with and (suspected) exposure to COVID-19; F17.210 Nicotine dependence, cigarettes, uncomplicated; I16.0 Hypertensive urgency; M54.9 Dorsalgia, unspecified; I12.9 Hypertensive chronic kidney disease with stage 1 through stage 4 chronic kidney disease, or unspecified chronic kidney disease; G89.29 Other chronic pain; Z79.899 Other long term (current) drug therapy; Z59.00 Homelessness unspecified
CPT/HCPCS: 36415; 71045; 74176; 74183; 76775; 80053; 80074; 80307; 80320; 81001; 83690; 83880; 84484; 85025; 85610; 85730; 87081; 87340; 87426; 87804; 93005; 96374; 96375; G0378; J2405; J2470

== ENCOUNTER 2025-02-28 12:09 | Inpatient (IN) | payer MEDICAID ==
[~2025-02-28] VITALS: Ht 182.9 cm; Wt 217.2 kg
[2025-02-28 12:34] LABS: Basophils # (auto) 0 10 ^3/uL (0-0.2); Basophils % (auto) 0.2 % (0.0-2.0); Eosinophils # (auto) 0.1 10 ^3/uL (0-0.8); Eosinophils % (auto) 1.4 % (0.0-7.0); Hematocrit 44.5 % (41.0-53.0); Hemoglobin 15.1 g/dL (13.5-17.5); Lymphocytes # (auto) 3.7 10 ^3/uL (0.4-5.4); Lymphocytes % (auto) 35.1 % (10.0-50.0); Mean Corpuscular Hgb Conc. 33.8 g/dL (32.0-36.0); Mean Corpuscular Volume 85.7 fL (80.0-100.0); Monocytes # (auto) 0.8 10 ^3/uL (0-1.3); Monocytes % (auto) 7.9 % (0.0-12.0); Neutrophils # (auto) 5.8 10 ^3/uL (1.6-8.6); Neutrophils % (auto) 55.4 % (37.0-80.0); Nucleated Red Blood Cells % 0.2 %; Platelet Count (auto) 219 10^3/uL (140-450); Red Blood Cells 5.19 10^6/uL (4.5-5.90); Red Cell Distribution Width 14.3 % (11.8-14.3); White Blood Cell 10.4 10^3/uL (4.4-10.8)
[2025-02-28 12:47] LABS: Alanine Aminotransferase 32 U/L (7-40); Albumin 4.2 g/dL (3.2-4.8); Alkaline Phosphatase 60 U/L (46-116); Anion Gap 8 (5-15); Aspartate Aminotransferase 24 U/L (13-40); BUN/Creatinine Ratio 11.5 (10.0-20.0); Blood Urea Nitrogen 11 mg/dL (9-23); Carbon Dioxide 25 mmol/L (20-31); Chloride 105 mmol/L (98-107); Glucose 134 mg/dL (74-106); Lipase 39 U/L (12-53); Potassium 3.5 mmol/L (3.5-5.1); Sodium 138 mmol/L (136-145); Total Protein 7.2 g/dL (5.7-8.2)
[2025-02-28 12:48] LABS: Bilirubin, Total 0.6 mg/dL (0.2-1.0)
--- NOTE | 2025-02-28 12:53 | ED.PDOC ---
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 EMS reports initial complaint was chest pain, described as a pressure sensation and rating a 5/10 on the pain scale but went down to a 3/10 s/p administrating NTG and ASA on scene. Patient reports pain is more localized to the RUQ, worse on palpation and states pain is still present a nd has not changed. EMS reports patient has not been compliant with medication for the past 3 weeks, patient states he has not been able to pick it up. Medication found with patient was Plavix. Patient also presents with right lower leg wound. Chief Complaint: Chest Pain Time Seen by MD: 12:18 Primary Care Provider: Maulik Jang Notes: Nurses Notes, Au Pair Notes, Medications, Allergies Allergies: Coded Allergies: NO KNOWN ALLERGIES (Unverified , 02/17/18) Home Meds Reported Medications Lisinopril (Lisinopril) 5 Mg Tab, 5 MG PO DAILY 03/18/18 Nifedipine (Nifedipine Er) 60 Mg Tab, 60 MG PO DAILY 03/18/18 Information Source: Patient, Emergency Med Personnel Mode of Arrival: EMS Severity: Moderate Timing: Hours Duration: Since onset Prehospital treatment: 12 Lead EKG, Accucheck, ASA, Security Incident Response Specialist, NTG Location: Chest (R) Quality: Sharp History of: Similar pain in past Modifying Factors: Nothing Associated Signs and Symptoms: SOB, Abdominal Pain Past Medical History PAST MEDICAL HISTORY: CVA, DM, HTN Surgical History: Appendectomy Family History Family History: Unknown Social History Smoker: Cigarettes Alcohol: Denies ETOH Use Drugs: Marijuana Lives In: Homeless Constitutional: denies: chills, diaphoresis, fatigue, fever, malaise, sweats, weakness, others EENTM: denies: blurred vision, double vision, ear bleeding, ear discharge, ear drainage, ear pain, ear ringing, eye pain, eye redness, hearing loss, mouth pain, mouth swelling, nasal discharge, nose bleeding, nose congestion, nose pain, photophobia, tearing, throat pain, throat swelling, voice changes, others Respiratory: reports: SOB at rest, shortness of breath, SOB with excertion; denies: cough, hemoptysis, orthopnea, stridor, wheezing, others Cardiovascular: reports: chest pain; denies: dizzy spells, diaphoresis, Dyspnea on exertion, edema, irregular heart beat, left arm pain, lightheadedness, palpitations, PND, syncope, others Gastrointestinal: reports: abdominal pain; denies: abdomen distended, blood streaked bowels, constipated, diarrhea, dysphagia, difficulty swallowing, hematemesis, melena, nausea, poor appetite, poor fluid intake, rectal bleeding, rectal pain, vomiting, others Genitourinary: denies: burning, dysuria, flank pain, frequency, hematuria, incontinence, penile discharge, penile sore, pain, testicle pain, testicle swelling, urgency, others Neurological: denies: dizziness, fainting, headache, left sided numbness, left sided weakness, numbness, paresthesia, pre-existing deficit, right sided numbness, right sided weakness, seizure, speech problems, tingling, tremors, weakness, others Musculoskeletal: denies: back pain, gout, joint pain, joint swelling, muscle pain, muscle stiffness, neck pain, others Integumetry: denies: bruises, change in color, change in hair/nails, dryness, laceration, lesions, lumps, rash, wounds, others Allergic/Immunocompromised: denies: Difficulty Healing, Frequent Infections, Hives, Itching, others Hematologic/Lymphatic: denies: anemia, blood clots, easy bleeding, easy bruising, swollen glands, others Endocrine: denies: excessive hunger, excessive sweating, excessive thirst, excessive urination, flushing, intolerance to cold, intolerance to heat, unexplained weight gain, unexplained weight loss, others Psychiatric: denies: anxiety, bipolar disorder, depression, hopeless, panic disorder, schizophrenia, sleepless, suicidal, others All Other Systems: Reviewed and Negative Physical Exam General Appearance: No Apparent Distress, Obese HEENT: Other (Pupils and face symmetric. Moist mucous membranes.) Neck: Full Range of Motion, Normal Inspection Respiratory: Lungs Clear, No Accessory Muscle Use, No Respiratory Distress, Normal Breath Sounds Cardiovascular: No Edema, No JVD, Regular Rate/Rhythm Breast Exam: Deferred Gastrointestinal: RUQ, Soft, Tenderness Genitalia: Deferred Pelvic: Deferred Rectal: Deferred Extremities: Normal inspection, Normal range of motion, Non-tender, No pedal edema Neurologic: Alert (Oriented x4), Normal Affect, Normal Mood, Other (Ambulatory without difficulty) Cerebellar Function: NOT DONE Reflexes: NOT DONE Skin: Dry, Normal Color, Warm Lymphatic: NOT DONE EKG EKG : Comments Sinus rhythm, rate 77, normal OK and QRS intervals, QTC 489, normal axis, normal QRS, nonspecific T change. Was a procedure done? Was a procedure done?: No CP Differential Dx Differential Diagnosis: N/A Differential Diagnosis: Angina, Aortic dissection, Chest Wall Pain, Cholelithiasis, Costochondritis, Esophageal reflux/spasm, Gastritis, Myocardial Infarction, Pericarditis, Pneumonia Comment Cholecystitis, biliary obstruction, cholangitis, among others X-Ray, Labs, Meds, VS Vital Signs Date Time Temp Pulse Resp B/P (MAP) Pulse Ox O2 Delivery O2 Flow Rate FiO2 02/28/25 13:38 87 14 114/60 02/28/25 13:08 87 15 162/90 02/28/25 12:15 77 02/28/25 12:15 98.4 84 16 162/105 (124) 96 98.4 Lab Test 02/28/25 13:00 02/28/25 12:12 Range/Units Troponin I High Sensitivity 4 3 L </=54 ng/L White Blood Count 10.4 4.4-10.8 10^3/uL Red Blood Count 5.19 4.5-5.90 10^6/uL Hemoglobin 15.1 13.5-17.5 g/dL Hematocrit 44.5 41.0-53.0 % Mean Corpuscular Volume 85.7 80.0-100.0 fL Mean Corpuscular Hemoglobin 29.0 28.0-32.0 pg Mean Corpuscular Hemoglobin Concent 33.8 32.0-36.0 g/dL Red Cell Distribution Width 14.3 11.8-14.3 % Platelet Count 219 140-450 10^3/uL Mean Platelet Volume 8.5 6.9-10.8 fL Neutrophils (%) (Auto) 55.4 37.0-80.0 % Lymphocytes (%) (Auto) 35.1 10.0-50.0 % Monocytes (%) (Auto) 7.9 0.0-12.0 % Eosinophils (%) (Auto) 1.4 0.0-7.0 % Basophils (%) (Auto) 0.2 0.0-2.0 % Neutrophils # (Auto) 5.8 1.6-8.6 10 ^3/uL Lymphocytes # (Auto) 3.7 0.4-5.4 10 ^3/uL Monocytes # (Auto) 0.8 0-1.3 10 ^3/uL Eosinophils # (Auto) 0.1 0-0.8 10 ^3/uL Basophils # (Auto) 0 0-0.2 10 ^3/uL Nucleated Red Blood Cells 0.2 % Sodium Level 138 136-145 mmol/L Potassium Level 3.5 3.5-5.1 mmol/L Chloride Level 105 98-107 mmol/L Carbon Dioxide Level 25 20-31 mmol/L Anion Gap 8 5-15 Blood Urea Nitrogen 11 9-23 mg/dL Creatinine 0.96 0.700-1.30 mg/dL Glomerular Filtration Rate Calc 88 >90 mL/min BUN/Creatinine Ratio 11.5 10.0-20.0 Serum Glucose 134 H 74-106 mg/dL Lactic Acid Level 1.9 0.4-2.0 mmol/L Calcium Level 9.0 8.7-10.4 mg/dL Total Bilirubin 0.6 0.2-1.0 mg/dL Aspartate Amino Transferase (AST) 24 13-40 U/L Alanine Aminotransferase (ALT) 32 7-40 U/L Alkaline Phosphatase 60 46-116 U/L B-Type Natriuretic Peptide 32.15 0-100 pg/mL Total Protein 7.2 5.7-8.2 g/dL Albumin 4.2 3.2-4.8 g/dL Lipase 39 12-53 U/L Current Medications Medications (Trade) Dose Ordered Sig/Mary Route Start Time Stop Time Status Last Admin Morphine Sulfate 4 mg ONCE ONCE IV 02/28/25 12:30 02/28/25 12:31 DC 02/28/25 13:08 Ondansetron HCl (Zofran) 4 mg ONCE ONCE IV 02/28/25 12:30 02/28/25 12:31 DC 02/28/25 13:07 CT ABDOMEN AND PELVIS WITHOUT CONTRAST CLINICAL HISTORY: ruq pain TECHNIQUE: Multiple contiguous axial images of the abdomen and pelvis without intravenous contrast. The images were reformatted degenerate coronal and sagittal reconstructions. All CT scans at this medical facility are performed using dose modulation techniques as appropriate to a performed exam including the following:Automated exposure control was utilized; adjustment of the MA and/or KV according to patient size; and use of iterative reconstruction technique. Radiation Dose Information: CT Dose: CTDI volume is 23.19 mGy. Dose-length product is 1439.01 mGy*cm Comparison: CT CT AB PEL WO CON-NO ORAL OR IV on DOS: 01/13/25 FINDINGS: Evaluation of the abdomen and pelvis is limited without intravenous contrast. There is no evidence of nephrolithiasis or hydronephrosis. There is a stable small cortical calcification in the upper pole of the left kidney. There is a stable 2.5 cm oval hyperdense cyst in the lower pole of the left kidney. There is no evidence of a ureteral calculus or hydroureter. There is a 2.5 cm gallstone in the gallbladder neck. The remainder of the g allbladder is distended and fluid-filled. There is no significant pericholecystic fat stranding. The liver, pancreas, adrenal glands, and spleen appear within normal limits. There is no gross evidence of abdominal lymphadenopathy. There is no free fluid or free air. The stomach grossly appears unremarkable. The small and large bowel loops demonstrate normal caliber and distribution. The appendix is not seen in the right lower quadrant abdomen. There are no secondary signs of acute appendicitis. The abdominal aorta and IVC appear within normal limits. The bladder appears unremarkable for the degree of distention. Pelvic organ appears within normal limits. There is no gross evidence of a pelvic mass. There is no free fluid collection. Lung bases are clear. There is no acute osseous abnormality. IMPRESSION: 1. 2.5 cm gallstone in the gallbladder neck. Remainder of the gallbladder is distended and fluid-filled. There is no significant pericholecystic fat stranding. 2. Stable 2.5 cm hyperdense cyst in the lower pole of the left kidney. HS:Y portable chest CLINICAL INDICATION: Chest pain Comparison: 01/13/2025 FINDINGS: Heart size slightly enlarged with a left ventricular configuration. The aorta is tortuous. No infiltrates or effusions IMPRESSION: 1. No acute cardiopulmonary pathology ATED BY: NIVIA ORTIZ MD X-Ray, Labs, Meds, VS Comment 64-year-old male with a history of hypertension, diabetes and CVA complaining of chest pain and right upper quadrant pain Vitals remarkable for BP 162/105 Exam remarkable for right upper quadrant tenderness to palpation. Negative Murp hy's sign Rhythm strip independently interpreted by me: Sinus rhythm, rate 77, no ectopy. CT abdomen and pelvis IMPRESSION: 1. 2.5 cm gallstone in the gallbladder neck. Remainder of the gallbladder is distended and fluid-filled. There is no significant pericholecystic fat stranding. 2. Stable 2.5 cm hyperdense cyst in the lower pole of the left kidney. Chest X-ray unremarkable CBC, CMP, BNP and serial troponins unremarkable for any abnormality of acute significance Patient treated with the following in the ED: Morphine 4 mg IV, Zofran 4 mg IV On re-evaluation, patient states pain has improved. Vitals were stable. Plan is to admit the patient for GI evaluation. Time of 1ST Reevaluation: 12:22 Reevaluation 1ST: Unchanged Patient Education/Counseling: Diagnosis, Treatment, Prognosis Family Education/Counseling: No Family Present Departure 1 Departure Time of Disposition: 18:22 Impression: Primary Impression: Biliary obstruction Disposition: ADMITTED INPATIENT Admit to: Med Surg Condition: Fair Critical Care Note Critical Care Time?: No Stability Stability form required: No Heart Score Heart Score: Heart Score Response (Comments) Value History Moderate Suspicious 1 EKG Repolarization Disturb 1 Age 45-64 1 Risk Factors >3 or Hx ASHD 2 Troponin Normal limit 0 Total 5 I personally scribed for GEOVANI PRADHAN MD ([email or web address]) on 02/28/25 at 12:52. Electronically submitted by Lesia Sanz ([facility]). I personally scribed for GEOVANI PRADHAN MD ([email or web address]) on 02/28/25 at 13:39. Electronically submitted by Lesia Sanz ([facility]). GEOVANI PRADHAN MD Feb 28, 2025 12:52
--- NOTE | 2025-02-28 13:04 | DVH ---
AP portable chest CLINICAL INDICATION: Chest pain Comparison: 01/13/2025 FINDINGS: Heart size slightly enlarged with a left ventricular configuration. The aorta is tortuous. No infiltrates or effusions IMPRESSION: 1. No acute cardiopulmonary pathology
[2025-02-28] MEDS: ONDANSETRON HCL 4 MG/2 ML VIAL IV ONE (13:07)
[2025-02-28] MEDS: MORPHINE SULFATE 4 MG/ML SYR/VIAL IV ONE (13:08)
--- NOTE | 2025-02-28 13:11 | DVH ---
CT ABDOMEN AND PELVIS WITHOUT CONTRAST CLINICAL HISTORY: ruq pain TECHNIQUE: Multiple contiguous axial images of the abdomen and pelvis without intravenous contrast. T he images were reformatted degenerate coronal and sagittal reconstructions. All CT scans at this medical facility are performed using dose modulation techniques as appropriate t o a performed exam including the following:Automated exposure control was utilized; adjustment of the MA and/or KV according to patient size; and use of iterative reconstruction technique. Radiation Dose Information: CT Dose: CTDI volume is 23.19 mGy. Dose-length product is 1439.01 mGy*cm Comparison: CT CT AB PEL WO CON-NO ORAL OR IV on DOS: 01/13/25 FINDINGS: Evaluation of the abdomen and pelvis is limited without intravenous contrast. There is no evidence of nephrolithiasis or hydronephrosis. There is a stable small cortical calcifica tion in the upper pole of the left kidney. There is a stable 2.5 cm oval hyperdense cyst in the lower pole of the left kidney. There is no evidence of a ureteral calculus or hydroureter. There is a 2.5 cm gallstone in the gallbladder neck. The remainder of the gallbladder is distended a nd fluid-filled. There is no significant pericholecystic fat stranding. The liver, pancreas, adre nal glands, and spleen appear within normal limits. There is no gross evidence of abdominal lymphadenopathy. There is no free fluid or free air. The stomach grossly appears unremarkable. The small and large bowel loops demonstrate normal caliber and distribution. The appendix is not seen in the right lower quadrant abdomen. There are no seconda ry signs of acute appendicitis. The abdominal aorta and IVC appear within normal limits. The bladder appears unremarkable for the degree of distention. Pelvic organ appears within normal whiting its. There is no gross evidence of a pelvic mass. There is no free fluid collection. Lung bases are clear. There is no acute osseous abnormality. IMPRESSION: 1. 2.5 cm gallstone in the gallbladder neck. Remainder of the gallbladder is distended and fluid-fill ed. There is no significant pericholecystic fat stranding. 2. Stable 2.5 cm hyperdense cyst in the lower pole of the left kidney. HS:Y
--- NOTE | 2025-02-28 13:59 | ECG ---
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
[2025-02-28] MEDS ORDERED: VANCOMYCIN PER PHARMACY 0 MG IV SCH (21:15)
[2025-02-28] MEDS ORDERED: ONDANSETRON HCL 4 MG/2 ML VIAL IV PRN (21:15)
--- NOTE | 2025-02-28 21:36 | DVHHPRES ---
History of Present Illness Resident Creating Document: SANDRA VENCES RESIDENT History of Present Illness Patient is a 64-year-old unhoused male with past medical history of hypertension, diabetes, 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 According to the patient, he has been having a right-sided chest pain for the last 3 days after he "jumped from a wall", he describes the pain as sharp and constant 5/10 in intensity and worsens with inspiration without any relieving factors. Patient also notes some orthostatic dizziness. Patient was also noted to have 2 areas of multiple scabbing wounds noted on the right anterior tibial skin which had surrounding erythema, purulence and tenderness to palpation, patient notes he sustained these wounds when he jumped from the wall 3 days ago, however leg wounds appear chronic-subacute. CT abdomen pelvis showed 2.5 cm stone in the gallbladder, distended and fluid-filled gallbladder. 2.5 cm hyperdense cyst in the lower pole of the left kidney. At the time of my assessment patient is AO x2. Past Medical History hypertension, diabetes, CVA 3 years ago with residual right-sided weakness and mild-moderate aphasia, cerebral aneurysm Past Surgical History Back surgery, appendectomy Past Social History Smokin cigarettes per day for the last 40 years Alcohol: Denies Drugs: Denies Allergy: Denies Review of Systems Constitutional: Yes: Malaise; No: Fever, Chills, Sweats, Weakness, Other Eyes: No: Pain, Vision change, Conjunctivae inflammation, Eyelid inflammation, Other, Redness ENT: No: Ear pain, Ear discharge, Nose pain, Nose discharge, Nose congestion, Mouth pain, Mouth swelling, Throat pain, Throat swelling, Other Respiratory: SOB with excertion; No: Cough, Dry, Shortness of breath, Wheezing, Hemoptysis, Pleuritic Pain, Sputum, Wheezing, Other Cardiovascular: Palpitations; No: Chest Pain, Orthopnea, Paroxysmal Noc. Dyspnea, Edema, Lt Headedness, Other Gastrointestinal: No: Nausea, Vomiting, Abdominal Pain, Diarrhea, Constipation, Melena, Hematochezia, Other Genitourinary: No Dysuria, No Frequency, No Incontinence, No Hematuria, No Retention, No Other Musculoskeletal: No: other, neck pain, shoulder pain, arm pain, back pain, hand pain, leg pain, foot pain Skin: No: Rash, Lesions, Jaundice, Bruising, Other Neurological: No: Weakness, Numbness, Incoordination, Change in speech, Confusion, Seizures, Other Allergies: Coded Allergies: NO KNOWN ALLERGIES (Unverified , 02/17/18) Exam Vital Signs Vital Signs Date Time Temp Pulse Resp B/P (MAP) Pulse Ox O2 Delivery O2 Flow Rate FiO2 02/28/25 13:38 87 14 114/60 02/28/25 12:15 98.4 96 98.4 General Appearance: Alert, Cooperative, No acute distress, Other (AO x2) HEENT: Atraumatic, PERRLA, EOMI, Other (Dry mucous membranes) Respiratory: Clear to auscultation, Other (Right chest wall tenderness to palpation) Cardiovascular: Regular rate, Normal S1, Normal S2 Abdominal: Normal bowel sounds, Soft, Other (Generalized abdominal tenderness to palpation most prominent on the right side) Extremities: No edema, Other (2 areas of multiple scabbing wounds noted on the right lower extremity with surrounding erythema, purulence and tenderness to palpation.) Neuro: Other (Decreased strength in the right upper and right lower extremity) Psych/Mental Status: Mood NL Labs/Xrays Labs Test 02/28/25 13:00 02/28/25 12:12 Range/Units Troponin I High Sensitivity 4 </=54 ng/L White Blood Count 10.4 4.4-10.8 10^3/uL Red Blood Count 5.19 4.5-5.90 10^6/uL Hemoglobin 15.1 13.5-17.5 g/dL Hematocrit 44.5 41.0-53.0 % Mean Corpuscular Volume 85.7 80.0-100.0 fL Mean Corpuscular Hemoglobin 29.0 28.0-32.0 pg Mean Corpuscular Hemoglobin Concent 33.8 32.0-36.0 g/dL Red Cell Distribution Width 14.3 11.8-14.3 % Platelet Count 219 140-450 10^3/uL Mean Platelet Volume 8.5 6.9-10.8 fL Neutrophils (%) (Auto) 55.4 37.0-80.0 % Lymphocytes (%) (Auto) 35.1 10.0-50.0 % Monocytes (%) (Auto) 7.9 0.0-12.0 % Eosinophils (%) (Auto) 1.4 0.0-7.0 % Basophils (%) (Auto) 0.2 0.0-2.0 % Neutrophils # (Auto) 5.8 1.6-8.6 10 ^3/uL Lymphocytes # (Auto) 3.7 0.4-5.4 10 ^3/uL Monocytes # (Auto) 0.8 0-1.3 10 ^3/uL Eosinophils # (Auto) 0.1 0-0.8 10 ^3/uL Basophils # (Auto) 0 0-0.2 10 ^3/uL Nucleated Red Blood Cells 0.2 % Sodium Level 138 136-145 mmol/L Potassium Level 3.5 3.5-5.1 mmol/L Chloride Level 105 98-107 mmol/L Carbon Dioxide Level 25 20-31 mmol/L Anion Gap 8 5-15 Blood Urea Nitrogen 11 9-23 mg/dL Creatinine 0.96 0.700-1.30 mg/dL Glomerular Filtration Rate Calc 88 >90 mL/min BUN/Creatinine Ratio 11.5 10.0-20.0 Serum Glucose 134 H 74-106 mg/dL Lactic Acid Level 1.9 0.4-2.0 mmol/L Calcium Level 9.0 8.7-10.4 mg/dL Total Bilirubin 0.6 0.2-1.0 mg/dL Aspartate Amino Transferase (AST) 24 13-40 U/L Alanine Aminotransferase (ALT) 32 7-40 U/L Alkaline Phosphatase 60 46-116 U/L B-Type Natriuretic Peptide 32.15 0-100 pg/mL Total Protein 7.2 5.7-8.2 g/dL Albumin 4.2 3.2-4.8 g/dL Lipase 39 12-53 U/L Assessment/Plan Assessment/Plan Acute toxic versus metabolic encephalopathy Right lower extremity cellulitis Symptomatic cholelithiasis, Distended, fluid-filled gallbladder with a 2.5 cm stone - ordered head CT - ordered treponemal pallidum antibody - plasma alcohol less than 3 - ordered UA, UDS - CT abdomen pelvis: 2.5 cm gallstone in the gallbladder neck. Remainder of the gallbladder is distended and fluid-filled. There is no significant pericholecystic fat stranding. - CXR: No acute cardiopulmonary pathology - GB usg: Cholelithiasis without evidence of acute cholecystitis - CT right lower extremity: Cellulitis and/or superimposed planned edema. No CT evidence of abscess, intramuscular component or necrotizing fasciitis - IV vancomycin per pharmacy, IV Zosyn - IV NS at 150 cc/hour - wound consult s/p mechanical fall R chest wall pain with hematoma noted - ordered R rib xray - ordered pelvic xray Hypertension Hypertensive heart disease Type 2 diabetes History of CVA 3 years ago with residual right-sided weakness and aphasia - resumed home medication lisinopril and nifedipine - aspirin 81 mg - atorvastatin 40 mg History of cerebral aneurysm - monitor History of a 2.5 cm left renal cyst, stable - CT abdomen pelvis: Stable 2.5 cm hyperdense cyst in the lower pole of the left kidney - monitor DVT prophylaxis: Levonox 40mg Goals of care: Full code, patient is AO x2, per patient he does not have any family accept his mother who he said is elderly and cannot make decisions. Plan discussed with patient Plan discussed with Dr. Dubon Plan discussed with: Patient, Other (RN) My Orders Orders - SANDRA VENCES RESIDENT Procedure Category Date Status Time Admit ADMIT 02/28/25 Verified 21:15 Allergies ARTUR 02/28/25 Verified 21:15 Code Status CODE 02/28/25 Verified 21:15 Acetaminophen Tablet PHA 02/28/25 Verified (Tylenol Tablet) 21:15 Ondansetron Hcl PHA 02/28/25 Verified (Zofran) 21:15 Enoxaparin Sodium PHA 03/01/25 Verified (Lovenox) 10:00 Complete Blood Count LAB 03/01/25 Verified 04:00 Comprehensive LAB 03/01/25 Verified Metabolic Panel 04:00 Cardiac DIET 03/01/25 Verified Diet-2gna,Lofat,Lochol Breakfast Pt Request For Service PT 02/28/25 Verified 21:15 Condition: Unstable ARTUR 02/28/25 Verified 21:15 Urinalysis LAB 02/28/25 Verified 21:15 Drug Screen LAB 02/28/25 Verified 21:15 Blood Alcohol LAB 02/28/25 Verified 21:15 * Wound Consult CONS 02/28/[address] R Tib Fib Wo CT 02/28/25 Verified Contrast 21:15 Vancomycin Per PHA 02/28/25 Verified Pharmacy 21:15 Zosyn Extended PHA 02/28/25 Verified Infusion 22:00 * Surgical Consult CONS 02/28/25 Verified Abdomen Complete US 02/28/25 Verified Sonogram 21:15 * Swallow Request ST 02/28/25 Verified 21:15 Communication Order ORDERS 02/28/25 Verified 21:15 Lisinopril Tablet PHA 03/01/25 Verified (Zestril Tablet) 10:00 Date of Service: Feb 28, 2025 Billing Provider: NYA DUBON MD Common Visit Codes: [id number] INP/OBS CARE (HIGH) SANDRA VENCES RESIDENT Feb 28, 2025 21:36
[2025-02-28 22:19] LABS: Magnesium 1.8 mg/dL (1.6-2.6)
--- NOTE | 2025-02-28 22:19 | DVH ---
EXAM: CT CT R TIB FIB WO CONTRAST INDICATION: R ant tibial cellulitis TECHNIQUE: Axial images of right tibia/ fibula without contrast have been obtained along with coronal and sagittal reformatted images. All CT scans at this facility use dose modulation, iterative recons truction, and/or weight based dosing when appropriate to reduce radiation dose to as low as reasonabl y achievable. COMPARISON: None FINDINGS: BONES: No CT evidence of an acute fracture or aggressive osseous lesion. MUSCLES: No abnormal attenuation. JOINT SPACES: No joint effusion. TENDONS/LIGAMENTS: Intact. OTHER: Extensive surrounding subcutaneous tissue edema. No drainable fluid collection. Slight anteri or skin thickening. No soft tissue emphysema. IMPRESSION: 1. Cellulitis and/or superimposed bland edema. No CT evidence of abscess, intramuscular component, or necrotizing fasciitis.
[2025-02-28 22:22] LABS: Blood Alcohol < 3.0 mg/dL (<10)
--- NOTE | 2025-02-28 22:43 | DVH ---
INDICATION: evaluate gallbladder TECHNIQUE: Multiple real-time sonographic images of the abdomen were obtained. COMPARISON: None FINDINGS: Liver is within normal limits in size and echogenicity with no lesions identified. No evidence of intrahepatic or extrahepatic biliary ductal dilatation with the common bile duct measu ring 6 mm. Gallstones are noted in the gallbladder which otherwise appears unremarkable with no evidence of wal l thickening or pericholecystic fluid. Sonographic Betts's sign was reportedly negative. Right kidney measures 10.6 cm and appears unremarkable with no hydronephrosis. Pancreas is obscured by overlying bowel gas No fluid collection noted. IMPRESSION: Cholelithiasis without evidence of acute cholecystitis.
[2025-03-01] VITALS (9 sets, daily range): BP systolic 109–159; BP diastolic 63–96; PULSE 73–96; RESP 16–20; TEMP 98.3–102.9; O2SAT 94–98
[2025-03-01] MEDS: ASPirin 81 mg TAB PO ONE (00:17)
[2025-03-01] MEDS: ATORVASTATIN 20 MG TAB PO SCH (00:17)
[2025-03-01] MEDS: PIPERACILLIN-TAZOB 3.375GM 100 ML IV ONE (01:48)
[2025-03-01] MEDS: SODIUM CHLORIDE 0.9% 1,000 ML IV SCH ×2 (01:54→15:00)
[2025-03-01] MEDS: LISINOPRIL 5 MG TAB PO SCH (02:00)
[2025-03-01] MEDS: NIFEdipine ER 30 MG TAB PO SCH (02:01)
[2025-03-01] MEDS: hydrALAZINE HCL 20 MG/ML VL IV ONE (06:04)
[2025-03-01] MEDS: PIPERACILLIN-TAZOB 3.375GM 100 ML IV SCH (06:04)
[2025-03-01 07:58] LABS: Basophils # (auto) 0.1 10 ^3/uL (0-0.2); Basophils % (auto) 0.9 % (0.0-2.0); Eosinophils # (auto) 0.2 10 ^3/uL (0-0.8); Eosinophils % (auto) 1.2 % (0.0-7.0); Hematocrit 43.4 % (41.0-53.0); Hemoglobin 14.4 g/dL (13.5-17.5); Lymphocytes # (auto) 2.5 10 ^3/uL (0.4-5.4); Lymphocytes % (auto) 17.2 % (10.0-50.0); Mean Corpuscular Hgb Conc. 33.3 g/dL (32.0-36.0); Mean Corpuscular Volume 87.3 fL (80.0-100.0); Monocytes # (auto) 1.2 10 ^3/uL (0-1.3); Neutrophils # (auto) 10.4 10 ^3/uL (1.6-8.6); Neutrophils % (auto) 72.7 % (37.0-80.0); Nucleated Red Blood Cells % 0.3 %; Platelet Count (auto) 206 10^3/uL (140-450); Red Blood Cells 4.97 10^6/uL (4.5-5.90); Red Cell Distribution Width 14.5 % (11.8-14.3); White Blood Cell 14.4 10^3/uL (4.4-10.8)
[2025-03-01 08:29] LABS: Alanine Aminotransferase 30 U/L (7-40); Alkaline Phosphatase 58 U/L (46-116); Anion Gap 10 (5-15); Aspartate Aminotransferase 24 U/L (13-40); BUN/Creatinine Ratio 12.6 (10.0-20.0); Bilirubin, Total 0.9 mg/dL (0.2-1.0); Blood Urea Nitrogen 12 mg/dL (9-23); Calcium 9.6 mg/dL (8.7-10.4); Carbon Dioxide 24 mmol/L (20-31); Chloride 104 mmol/L (98-107); Glucose 103 mg/dL (74-106); Potassium 3.8 mmol/L (3.5-5.1); Sodium 138 mmol/L (136-145); Total Protein 6.8 g/dL (5.7-8.2)
[2025-03-01 09:16] LABS: Folate (Folic Acid) 12.66 ng/mL (>5.38)
[2025-03-01] MEDS: ENOXAPARIN SOD 40 MG/0.4 ML SYRINGE SC SCH (09:40)
[2025-03-01] MEDS: ACETAMINOPHEN 325 MG TAB PO PRN (09:41)
[2025-03-01] MEDS: ASPirin 81 mg TAB PO SCH (09:42)
[2025-03-01] MEDS ORDERED: LISINOPRIL 5 MG TAB PO SCH (10:00)
[2025-03-01] MEDS ORDERED: NIFEdipine ER 30 MG TAB PO SCH (10:00)
[2025-03-01] MEDS: VANCOMYCIN 1.5GM/300ML 300 ML IV SCH (10:19)
[2025-03-01 12:12] LABS: RAPID PLASMA REAGIN REACTIVE (NONREACTIVE)
--- NOTE | 2025-03-01 13:59 | DVH ---
EXAMINATION: XY R RIB XRAY INDICATION: tenderness, hematoma COMPARISON: None TECHNIQUE: Frontal view of the chest and 4 views of the bilateral ribs history FINDINGS: No focal consolidation, pleural effusion or significant pneumothorax. Normal cardiomediastinal silhou ette. No displaced bilateral rib fracture. IMPRESSION: No acute cardiopulmonary disease. No displaced bilateral rib fracture.
--- NOTE | 2025-03-01 14:00 | DVH ---
EXAM: XY PELVIS AP CLINICAL INDICATION: fall eval R hip TECHNIQUE: XY PELVIS AP Comparison: None FINDINGS/IMPRESSION: There is no evidence of acute fracture or dislocation. The visualized joint space is well maintained. The alignment is anatomical. There is no radiopaque foreign body. Large stool burden.
--- NOTE | 2025-03-01 14:01 | DVH ---
EXAM: CT HEAD WITHOUT CONTRAST INDICATION: ALOC TECHNIQUE: CT of the head without intravenous contrast. Radiation Dose Information: CT Dose: CTDI volume is 65.28 mGy. Dose-length product is 1286.23 mGy*cm The dose indicators for CT are the volume Computed Tomography (CT) Dose Index (CTDIvol) and the Dose Length Product (DLP), and are measured in units of mGy and mGy-cm, respectively. These indicators are not patient dose, but values generated from the CT scanner acquisition factors. The report includes radiation exposure data for exposures received during this examination. COMPARISON: CT HEAD WITHOUT CONTRAST on DOS: 12/22/24 FINDINGS: There is no evidence of acute intracranial hemorrhage, extra-axial collection, mass effect, midline s hift, herniation or hydrocephalus. The ventricles, sulci and cisterns are age appropriate. Encephalomalacia left parietal lobe. Chronic left MCA territory infarct. The ni-white differentiation is intact. Patchy periventricular and subcortical white matter hypoattenuation is nonspecific but may be related to small vessel ischemic disease. The visualized paranasal sinuses and mastoid air cells are clear. The surrounding soft tissues and osseous structures are unremarkable. IMPRESSION: No acute intracranial abnormality. MRI Suggested. Encephalomalacia left parietal lobe. Chronic left MCA territory infarct.
[2025-03-01] MEDS: cefTRIAXone 1GM/50ML D5W 50 ML IV ONE (16:53)
[2025-03-01] MEDS: PENICILLIN G BENZ 1,200,000 UNITS/2 ML SYRG IM ONE (16:56)
--- NOTE | 2025-03-01 18:08 | DVHPNRES ---
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 According to the patient, he has been having a right-sided chest pain for the last 3 days after he "jumped from a wall", he describes the pain as sharp and constant 5/10 in intensity and worsens with inspiration without any relieving factors. Patient also notes some orthostatic dizziness. Patient was also noted to have 2 areas of multiple scabbing wounds noted on the right anterior tibial skin which had surrounding erythema, purulence and tenderness to palpation, patient notes he sustained these wounds when he jumped from the wall 3 days ago, however leg wounds appear chronic-subacute. Lab workup revealed leukocytosis with WBC 14.4, TSH 0.53, treponema pallidum antibody positive, RPR reactive, RVR titer 1:1 A. X-ray negative for acute fracture. Paralytic x-ray negative for acute fracture or dislocation. CT head negative for acute intracranial abnormality. CT abdomen pelvis showed 2.5 cm stone in the gallbladder, distended and fluid-filled gallbladder. 2.5 cm hyperdense cyst in the lower pole of the left kidney. 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 Cardiovascular- deny acute r cough or palpitation Respiratory denies cough or wheezing Gastrointestinal- denies any rectal bleeding, nausea or vomiting Neurological- denies acute dysarthria, dysphagia, change in vision Psychiatry- denies depression or SI or HI Skin- denies acute rash or purpura Patient was seen today for clinical evaluation. Labs and chart reviewed. Lab workup revealed leukocytosis with WBC 14.4, TSH 0.53, treponema pallidum antibody positive, RPR reactive, RVR titer 1:1 A. Patient reports ongoing right side of the chest pain and right lower leg pain. Ordered benzene million 2.4 million units IM once. Discontinue Zosyn, ordered ceftriaxone. We will continue with the vancomycin. Objective vital signs Vital Sign Date Time Temp Pulse Resp B/P (MAP) Pulse Ox O2 Delivery O2 Flow Rate FiO2 03/01/25 16:28 98.3 86 20 134/86 (102) 94 98.3 03/01/25 08:00 Room Air* 0 21 Total Intake and Output 02/28/25 02/28/25 03/01/25 15:00 23:00 07:00 Intake Total 0 ml Balance 0 ml medications Current Medications Medications Dose Ordered Sig/Mary Route Start Time Stop Time Status Last Admin Dose Admin Acetaminophen 325 mg Q4HP PRN PO 02/28/25 21:15 03/01/25 09:41 325 MG Ondansetron HCl 4 mg Q4HP PRN IV 02/28/25 21:15 Enoxaparin Sodium 40 mg DAILY SC 03/01/25 10:00 03/01/25 09:40 40 MG Vancomycin HCl 0 ml @ 0 mls/hr UD IV 02/28/25 21:15 Aspirin 81 mg DAILY PO 03/01/25 10:00 03/01/25 09:42 81 MG Atorvastatin Calcium 40 mg HS PO 02/28/25 22:00 03/01/25 00:17 40 MG Lisinopril 5 mg DAILY PO 03/01/25 01:45 03/01/25 09:41 5 MG Nifedipine 60 mg DAILY PO 03/01/25 01:45 03/01/25 02:01 60 MG Vancomycin HCl 300 ml @ 200 mls/hr Q12H IV 03/01/25 09:30 03/01/25 10:19 200 MLS/HR Sodium Chloride 1,000 ml @ 150 mls/hr Q6H40M IV 03/01/25 15:00 03/01/25 18:00 03/01/25 15:00 150 MLS/HR Ceftriaxone Sodium 50 ml @ 100 mls/hr DAILY@09 IV 03/02/25 09:00 Examination General examination-patient is awake, alert , right-sided chest wall tenderness HEENT- PEERLA, no acute nasal discharge Cardiovascular- S1-S2 audible, rate and rhythm regular, no murmur Respiratory- CTAB, no wheeze or rhonchi Gastrointestinal-nontender, bowel sound+. Nondistended Musculoskeletal-no acute joint swelling or tenderness or redness Lower extremity- right lower leg with the skin abrasion with the some purulent discharge, red, erythema Neurological- cranial nerves intact, no acute dysarthria or dysphagia Psychiatry- denies depression or SI or HI Skin- no acute rash or purpura laboratory and microbiology Laboratory Tests 03/01/25 06:31 Test 03/01/25 06:31 Range/Units Serum Glucose 103 74-106 mg/dL Problem List/Assessment/Plan Problem List/Assessment/Plan Assessment and plan Acute toxic versus metabolic encephalopathy Sepsis with Right lower extremity cellulitis Symptomatic cholelithiasis, Distended, fluid-filled gallbladder with a 2.5 cm stone - CT head negative for acute intracranial abnormality. CT abdomen pelvis showed 2.5 cm stone in the gallbladder, distended and fluid- filled gallbladder. 2.5 cm hyperdense cyst in the lower pole of the left kidney. - treponemal pallidum antibody positive - plasma alcohol less than 3 - ordered UA, UDS - CT abdomen pelvis: 2.5 cm gallstone in the gallbladder neck. Remainder of the gallbladder is distended and fluid-filled. There is no significant pericholecystic fat stranding. - CXR: No acute cardiopulmonary pathology - GB usg: Cholelithiasis without evidence of acute cholecystitis - CT right lower extremity: Cellulitis and/or superimposed planned edema. No CT evidence of abscess, intramuscular component or necrotizing fasciitis -continue antibiotic ceftriaxone and vancomycin as prescribed - wound consult s/p mechanical fall R chest wall pain with hematoma noted -review x-ray negative for acute fracture - pelvic x-ray negative for acute fracture or dislocation Syphilis Positive for treponema pallidum -ordered benzathine penicillin 2.4 million units IM once Leukocytosis -monitor CBC, Hypertension Hypertensive heart disease Type 2 diabetes History of CVA 3 years ago with residual right-sided weakness and aphasia - resumed home medication lisinopril and nifedipine - aspirin 81 mg - atorvastatin 40 mg History of cerebral aneurysm - monitor History of a 2.5 cm left renal cyst, stable - CT abdomen pelvis: Stable 2.5 cm hyperdense cyst in the lower pole of the left kidney - monitor Goals of care, Code status ; discussed with >15 minutes PUD prophylaxis: Pantoprazole DVT prophylaxis: Lovenox Plan discussed with Dr. Avila , nursing staff, Total time spent on patient evaluation, chart review, assessment and plan, discussion discussion >35 minutes Plan discussed with: Patient, Other (RN) My Orders My Orders Orders - JENNY PABON Procedure Category Date Status Time Wound Culture W/ Gs LOLY 03/01/25 In Process 11:15 Cleanse Wound With ARTUR 03/01/25 In Process Wound Clean 11:31 * Dietary Consult CONS 03/01/25 Transmitted 12:37 Comprehensive LAB 03/02/25 Verified Metabolic Panel 04:00 Ammonia LAB 03/02/25 Verified 04:00 Sodium Chloride 0.9% PHA 03/01/25 In Process 15:00 Ceftriaxone 1gm/50ml PHA 03/02/25 In Process D5w (Rocephin) 09:00 Dietary Evaluation Review Comments: 1) Nikko 1 pk BID 2) CCHO 75gm + cardiac diet 3) Continue current POC Expected Outcomes/Goals: To meet >75% estimated needs Fu 3-5 days Date of Service: Mar 01, 2025 Billing Provider: JOE MCCLAIN MD Common Visit Codes: [id number] INP/OBS CARE(HIGH) JENNY PABON Mar 01, 2025 18:08 JOE MCCLAIN MD March 05, 2025 21:05
[2025-03-01] MEDS: PANTOPRAZOLE 40 MG/10 ML VIAL INJ IV ONE (18:15)
[2025-03-01] MEDS: ACETAMINOPHEN 500 MG TAB or CAP PO ONE (21:16)
[2025-03-01 22:35] LABS: COVID19 ANTIGEN SOFIA FIA NEGATIVE (NEGATIVE); Rapid Influenza A Negative (Negative); Rapid Influenza B Negative (Negative)
[2025-03-02] VITALS (7 sets, daily range): BP systolic 102–116; BP diastolic 51–80; PULSE 63–85; RESP 18–20; TEMP 98.2–100.5; O2SAT 94–97
--- NOTE | 2025-03-02 07:05 | DVHINCON2 ---
Consultation - Surgical Date Seen: Mar 02, 2025 Referring Physician Referring Physician enmanuel Reason for Consultation Cholelithiasis History of Present Illness History of Present Illness Patient is a 64-year-old unhoused male with past medical history of hypertensi on, diabetes, CVA 3 years ago with residual right-sided weakness and mild- moderate aphasia, cerebral aneurysm, who comes in due to a right-sided chest pain. According to the patient, he has been having a right-sided chest pain for the last 3 days after he "jumped from a wall", he describes the pain as sharp and constant 5/10 in intensity and worsens with inspiration without any re lieving factors. Patient also notes some orthostatic dizziness. Patient was also noted to have 2 areas of multiple scabbing wounds noted on the right anterior tibial skin which had surrounding erythema, purulence and tenderness to palpation, patient notes he sustained these wounds when he jumped from the wall 3 days ago, however leg wounds appear chronic-subacute. CT abdomen pelvis showed 2.5 cm stone in the gallbladder, distended and fluid-filled gallbladder. 2.5 cm hyperdense cyst in the lower pole of the left kidney. At the time of my assessment patient is AO x2. 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 Appendectomy Family and Social History Family and Social History Smoker Allergies and medications Allergies: Coded Allergies: NO KNOWN ALLERGIES (Unverified , 02/17/18) Home Meds Reported Medications Lisinopril (Lisinopril) 5 Mg Tab, 5 MG PO DAILY 03/18/18 Nifedipine (Nifedipine Er) 60 Mg Tab, 60 MG PO DAILY 03/18/18 Review of systems Review of Systems: HEENT:Normal, CVS:Normal, RESPIRATORY:Normal, GI:Normal, :Normal, MSK:Normal, NEURO:Normal Examination Vital signs Vital Signs Date Time Temp Pulse Resp B/P (MAP) Pulse Ox O2 Delivery O2 Flow Rate FiO2 03/02/25 05:00 99.0 63 18 102/52 (69) 95 99.0 03/01/25 20:00 Room Air* 0 21 Medications Current Medications Medications (Trade) Dose Ordered Sig/Mary Route PRN Reason Start Time Stop Time Status Last Admin Enoxaparin Sodium (Lovenox) 40 mg DAILY SC 03/01/25 10:00 03/01/25 09:40 Lisinopril (Zestril Tablet) 5 mg DAILY PO 03/01/25 10:00 03/01/25 01:33 DC Nifedipine (Procardia Xl (Time-Release)) 60 mg DAILY PO 03/01/25 10:00 03/01/25 01:33 DC Aspirin 81 mg DAILY PO 03/01/25 10:00 03/01/25 09:42 Vancomycin HCl 300 ml @ 200 mls/hr Q12H IV 03/01/25 09:30 03/01/25 21:16 Sodium Chloride 1,000 ml @ 150 mls/hr Q6H40M IV 03/01/25 15:00 03/01/25 18:00 DC 03/01/25 15:00 Ceftriaxone Sodium 50 ml @ 100 mls/hr DAILY@09 IV 03/02/25 09:00 Pantoprazole Sodium (Protonix) 40 mg DAILY IV 03/02/25 10:00 Laboratory Labs Test 03/02/25 05:59 03/01/25 21:30 03/01/25 06:31 02/28/25 21:52 Range/Units Influenza Type A Antigen Negative Negative Influenza Type B Antigen Negative Negative SARS-CoV-2 Antigen (Rapid) Negative NEGATIVE Eosinophils (%) (Auto) 1.2 0.0-7.0 % Eosinophils # (Auto) 0.2 0-0.8 10 ^3/uL Basophils # (Auto) 0.1 0-0.2 10 ^3/uL Nucleated Red Blood Cells 0.3 % Sodium Level 138 136-145 mmol/L Potassium Level 3.8 3.5-5.1 mmol/L Chloride Level 104 98-107 mmol/L Carbon Dioxide Level 24 20-31 mmol/L Anion Gap 10 5-15 Blood Urea Nitrogen 12 9-23 mg/dL Creatinine 0.95 0.700-1.30 mg/dL Glomerular Filtration Rate Calc 89 >90 mL/min BUN/Creatinine Ratio 12.6 10.0-20.0 Serum Glucose 103 74-106 mg/dL Hemoglobin A1c 5.6 <5.7 % A1C Calcium Level 9.6 8.7-10.4 mg/dL Total Bilirubin 0.9 0.2-1.0 mg/dL Aspartate Amino Transferase (AST) 24 13-40 U/L Alanine Aminotransferase (ALT) 30 7-40 U/L Alkaline Phosphatase 58 46-116 U/L Total Protein 6.8 5.7-8.2 g/dL Albumin 4.0 3.2-4.8 g/dL Vitamin B12 Level 286 211-911 pg/mL Vitamin D 25-Hydroxy 29.5 L 30.0-100 ng/mL Folic Acid 12.66 >5.38 ng/mL Thyroid Stimulating Hormone (TSH) 0.53 L 0.55-4.78 uIU/mL Rapid Plasma Reagin Titer 1:1 A NONREACTIVE Titer Rapid Plasma Reagin Reactive A NONREACTIVE Treponema pallidum Antibody Reactive *A Negative Phosphorus Level 3.0 2.4-5.1 mg/dL Magnesium Level 1.8 1.6-2.6 mg/dL Plasma/Serum Blood Alcohol < 3.0 <10 mg/dL Test 02/28/25 13:00 02/28/25 12:12 Range/Units Troponin I High Sensitivity 4 </=54 ng/L Lactic Acid Level 1.9 0.4-2.0 mmol/L B-Type Natriuretic Peptide 32.15 0-100 pg/mL Lipase 39 12-53 U/L CT ABDOMEN AND PELVIS WITHOUT CONTRAST CLINICAL HISTORY: ruq pain TECHNIQUE: Multiple contiguous axial images of the abdomen and pelvis without intravenous contrast. The images were reformatted degenerate coronal and sagittal reconstructions. All CT scans at this medical facility are performed using dose modulation techniques as appropriate to a performed exam including the following:Automated exposure control was utilized; adjustment of the MA and/or KV according to patient size; and use of iterative reconstruction technique. Radiation Dose Information: CT Dose: CTDI volume is 23.19 mGy. Dose-length product is 1439.01 mGy*cm Comparison: CT CT AB PEL WO CON-NO ORAL OR IV on DOS: 01/13/25 FINDINGS: Evaluation of the abdomen and pelvis is limited without intravenous contrast. There is no evidence of nephrolithiasis or hydronephrosis. There is a stable small cortical calcification in the upper pole of the left kidney. There is a stable 2.5 cm oval hyperdense cyst in the lower pole of the left kidney. There is no evidence of a ureteral calculus or hydroureter. There is a 2.5 cm gallstone in the gallbladder neck. The remainder of the gallbladder is distended and fluid-filled. There is no significant pericholecystic fat stranding. The liver, pancreas, adrenal glands, and spleen appear within normal limits. There is no gross evidence of abdominal lymphadenopathy. There is no free fluid or free air. The stomach grossly appears unremarkable. The small and large bowel loops demonstrate normal caliber and distribution. The appendix is not seen in the right lower quadrant abdomen. There are no secondary signs of acute appendicitis. The abdominal aorta and IVC appear within normal limits. The bladder appears unremarkable for the degree of distention. Pelvic organ appe ars within normal limits. There is no gross evidence of a pelvic mass. There is no free fluid collection. Lung bases are clear. There is no acute osseous abnormality. IMPRESSION: 1. 2.5 cm gallstone in the gallbladder neck. Remainder of the gallbladder is distended and fluid-filled. There is no significant pericholecystic fat stranding. 2. Stable 2.5 cm hyperdense cyst in the lower pole of the left kidney. Examination: GENERAL:Normal, HEENT:Normal, NECK:Normal, CVS:Normal, ABD OMEN:Normal, MSK:Normal, SKIN:Normal, NEURO:Normal Problem List/Assessment/Plan Problems: (1) Cholelithiasis Assessment and Plan 64-year-old male presented was chest pain CAT scan was found to gallstones. Asymptomatic cholelithiasis Patient is asymptomatic Nonsurgical abdomen No further workup necessary Plan discussed with Plan discussed with: Patient Visit Coding Surgery Date of Service if different f: Mar 02, 2025 Billing Provider: YOAV REGALADO Jr., MD Surgery Visit Codes: 38456 - INP CONSULT <80 MIN YOAV REGALADO Jr., MD Mar 02, 2025 07:05
[2025-03-02] MEDS: SODIUM CHLORIDE 0.9% 1,000 ML IV ONE (07:15)
[2025-03-02] MEDS: LACTULOSE 20Gm/30ML SOLN PO STA (08:42)
[2025-03-02] MEDS: cefTRIAXone 1GM/50ML D5W 50 ML IV SCH (11:04)
[2025-03-02] MEDS: PANTOPRAZOLE 40 MG/10 ML VIAL INJ IV SCH (11:04)
--- NOTE | 2025-03-02 11:47 | DVH ---
Procedure: NM NM HIDA SCAN Exam Date: 03/02/2025 09:56 AM Clinical History: Suspected acute cholecystitis due to cholelithiasis Comparison Study: Ultrasound dated 02/28/2025 Technique: Following the intravenous administration of 6 mCi of technetium 99m labeled Choletec multi ple planar abdominal planar images were obtained in anterior projection in 5 minute intervals 30- 60 minutes . Right lateral left anterior oblique images were obtained at 60 minutes after injection. Findings: The liver appears grossly normal in size. There is no abnormal persistence of the cardiac or blood po ol activity. Tracer can be seen in the small bowel at 30 minutes. There is radiotracer in gallbladder lumen but gallbladder appears contracted. Impression: 1. No evidence of cystic duct obstruction. The common bile duct is patent.
[2025-03-02 11:58] LABS: Basophils # (auto) 0.1 10 ^3/uL (0-0.2); Basophils % (auto) 0.5 % (0.0-2.0); Eosinophils # (auto) 0 10 ^3/uL (0-0.8); Eosinophils % (auto) 0.4 % (0.0-7.0); Hematocrit 45.4 % (41.0-53.0); Hemoglobin 15.2 g/dL (13.5-17.5); Lymphocytes # (auto) 2.7 10 ^3/uL (0.4-5.4); Lymphocytes % (auto) 21.8 % (10.0-50.0); Mean Corpuscular Hemoglobin 28.9 pg (28.0-32.0); Mean Corpuscular Hgb Conc. 33.6 g/dL (32.0-36.0); Monocytes # (auto) 1.3 10 ^3/uL (0-1.3); Monocytes % (auto) 10.2 % (0.0-12.0); Neutrophils # (auto) 8.4 10 ^3/uL (1.6-8.6); Neutrophils % (auto) 67.1 % (37.0-80.0); Nucleated Red Blood Cells % 0.1 %; Platelet Count (auto) 233 10^3/uL (140-450); Red Blood Cells 5.28 10^6/uL (4.5-5.90); Red Cell Distribution Width 14.3 % (11.8-14.3); White Blood Cell 12.5 10^3/uL (4.4-10.8)
[2025-03-02 12:07] LABS: Alanine Aminotransferase 25 U/L (7-40); Albumin 4.1 g/dL (3.2-4.8); Alkaline Phosphatase 54 U/L (46-116); Anion Gap 7 (5-15); Aspartate Aminotransferase 16 U/L (13-40); BUN/Creatinine Ratio 14.6 (10.0-20.0); Blood Urea Nitrogen 14 mg/dL (9-23); Calcium 9.4 mg/dL (8.7-10.4); Carbon Dioxide 24 mmol/L (20-31); Chloride 108 mmol/L (98-107); Glucose 128 mg/dL (74-106); Potassium 3.6 mmol/L (3.5-5.1); Sodium 139 mmol/L (136-145); Total Protein 7.1 g/dL (5.7-8.2)
[2025-03-02 12:14] LABS: Hepatitis B Surface Antibody Negative (Negative)
[2025-03-02 12:25] LABS: Hepatitis B Surface Antigen Negative (Negative)
[2025-03-02 12:44] LABS: Hepatitis A Ab IgM Negative; Hepatitis B Core IgM Negative (Negative)
[2025-03-02 12:56] LABS: Hepatitis C Antibody Positive (Negative)
[2025-03-02] MEDS: LACTULOSE 20Gm/30ML SOLN PO SCH (14:00)
[2025-03-02] MEDS: HYDROcodone-ACET 5/325MG TAB PO PRN (14:12)
[2025-03-02 14:29] LABS: Urine Bacteria None Seen /hpf (None Seen)
[2025-03-02 14:55] LABS: Urine Blood Negative /uL (Negative); Urine Clarity Clear (Clear); Urine Color Yellow (Yellow); Urine Hyaline Cast FEW /lpf (0 - 2); Urine Protein, UAD TRACE (Negative); Urine Specific Gravity 1.028 (1.001-1.035); Urine Squamous Epithelial Cell None Seen /hpf (<5); Urine Urobilinogen 3 mg/dL (Negative); Urine WBC 1 /HPF (0-3)
[2025-03-02 15:05] LABS: Amphetamine Screen, Urine Pos (NEGATIVE); Barbiturate Scree,Urine Neg (NEGATIVE); Benzodiazephine Screen, Urine Neg (NEGATIVE); Cannabinoid Screen, Urine Neg (NEGATIVE); Cocaine Screen, Urine Neg (NEGATIVE); Opiate Scree,Urine Neg (NEGATIVE); Phencyclidine Screen, Urine Neg (NEGATIVE)
--- NOTE | 2025-03-02 15:32 | DVHPNRES ---
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 According to the patient, he has been having a right-sided chest pain for the last 3 days after he "jumped from a wall", he describes the pain as sharp and constant 5/10 in intensity and worsens with inspiration without any relieving factors. Patient also notes some orthostatic dizziness. Patient was also noted to have 2 areas of multiple scabbing wounds noted on the right anterior tibial skin which had surrounding erythema, purulence and tenderness to palpation, patient notes he sustained these wounds when he jumped from the wall 3 days ago, however leg wounds appear chronic-subacute. Lab workup revealed leukocytosis with WBC 14.4, TSH 0.53, treponema pallidum antibody positive, RPR reactive, RVR titer 1:1 A. X-ray negative for acute fracture. Paralytic x-ray negative for acute fracture or dislocation. CT head negative for acute intracranial abnormality. CT abdomen pelvis showed 2.5 cm stone in the gallbladder, distended and fluid-filled gallbladder. 2.5 cm hyperdense cyst in the lower pole of the left kidney. 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 Cardiovascular- deny acute r cough or palpitation Respiratory denies cough or wheezing Gastrointestinal- denies any rectal bleeding, nausea or vomiting Neurological- denies acute dysarthria, dysphagia, change in vision Psychiatry- denies depression or SI or HI Skin- denies acute rash or purpura Patient was seen today for clinical evaluation. Labs and chart reviewed. Patient reported feeling a little bit better today but patient had fever overnight. Which could be due to Jarisch- Herxheimer reaction or bacteremia. Ordered blood culture for further evaluation and care. Wound Culture revealed group a Staphylococcus. Hepatitis-C antibody positive, serum ammonia 118, GGT 74. UDS positive for amphetamine. -HIDA scan No evidence of cystic duct obstruction. The common bile duct is patent. Objective vital signs Vital Sign Date Time Temp Pulse Resp B/P (MAP) Pulse Ox O2 Delivery O2 Flow Rate FiO2 03/02/25 11:06 116/80 03/02/25 09:00 99.0 70 20 94 99.0 03/02/25 08:00 Room Air* 0 21 Total Intake and Output 03/01/25 03/01/25 03/02/25 15:00 23:00 07:00 Intake Total 720 ml 250 ml Balance 720 ml 250 ml medications Current Medications Medications Dose Ordered Sig/Mary Route Start Time Stop Time Status Last Admin Dose Admin Acetaminophen 325 mg Q4HP PRN PO 02/28/25 21:15 03/01/25 09:41 325 MG Ondansetron HCl 4 mg Q4HP PRN IV 02/28/25 21:15 Enoxaparin Sodium 40 mg DAILY SC 03/01/25 10:00 03/02/25 11:04 40 MG Vancomycin HCl 0 ml @ 0 mls/hr UD IV 02/28/25 21:15 Aspirin 81 mg DAILY PO 03/01/25 10:00 03/02/25 11:05 81 MG Atorvastatin Calcium 40 mg HS PO 02/28/25 22:00 03/01/25 21:16 40 MG Lisinopril 5 mg DAILY PO 03/01/25 01:45 03/02/25 11:06 5 MG Nifedipine 60 mg DAILY PO 03/01/25 01:45 03/02/25 11:05 60 MG Ceftriaxone Sodium 50 ml @ 100 mls/hr DAILY@09 IV 03/02/25 09:00 03/02/25 11:04 100 MLS/HR Pantoprazole Sodium 40 mg DAILY IV 03/02/25 10:00 03/02/25 11:04 40 MG Lactulose 30 ml Q8HR PO 03/02/25 14:00 Acetaminophen/ Hydrocodone Bitart 1 tab Q6HPRN PRN PO 03/02/25 12:30 03/02/25 14:12 1 TAB Vancomycin HCl 250 ml @ 166.667 mls/hr Q12H IV 03/02/25 17:00 Examination General examination-patient is awake, alert , right-sided chest wall tenderness HEENT- PEERLA, no acute nasal discharge Cardiovascular- S1-S2 audible, rate and rhythm regular, no murmur Respiratory- CTAB, no wheeze or rhonchi Gastrointestinal-nontender, bowel sound+. Nondistended Musculoskeletal-no acute joint swelling or tenderness or redness Lower extremity- right lower leg with the skin abrasion with the some purulent discharge, red, erythema Neurological- cranial nerves intact, no acute dysarthria or dysphagia Psychiatry- denies depression or SI or HI Skin- no acute rash or purpura laboratory and microbiology Laboratory Tests 03/02/25 11:17 Test 03/02/25 11:17 Range/Units Serum Glucose 128 H 74-106 mg/dL Microbiology Date/Time Source Procedure Growth Status 03/01/25 11:22 Leg Right Gram Stain - Final Resulted 03/01/25 11:22 Wound Culture - Preliminary Streptococcus Group A Resulted Problem List/Assessment/Plan Problem List/Assessment/Plan Assessment and plan-patient had fever overnight. Which could be due to Jarisch- Herxheimer reaction or bacteremia. Ordered blood culture for further evaluation and care. Wound Culture revealed group a Staphylococcus. Hepatitis- C antibody positive, serum ammonia 118, GGT 74. UDS positive for amphetamine. - HIDA scan No evidence of cystic duct obstruction. The common bile duct is patent. Acute toxic versus metabolic encephalopathy Sepsis with Right lower extremity cellulitis Symptomatic cholelithiasis, Distended, fluid-filled gallbladder with a 2.5 cm stone - CT head negative for acute intracranial abnormality. CT abdomen pelvis showed 2.5 cm stone in the gallbladder, distended and fluid- filled gallbladder. 2.5 cm hyperdense cyst in the lower pole of the left kidney. - treponemal pallidum antibody positive - plasma alcohol less than 3 - ordered UA, UDS - CT abdomen pelvis: 2.5 cm gallstone in the gallbladder neck. Remainder of the gallbladder is distended and fluid-filled. There is no significant pericholecystic fat stranding. - CXR: No acute cardiopulmonary pathology - GB usg: Cholelithiasis without evidence of acute cholecystitis - CT right lower extremity: Cellulitis and/or superimposed planned edema. No CT evidence of abscess, intramuscular component or necrotizing fasciitis -HIDA scan No evidence of cystic duct obstruction. The common bile duct is patent. -continue antibiotic ceftriaxone and vancomycin as prescribed -Wound Culture revealed group a Staphylococcus. 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 Avila , nursing staff, Total time spent on patient evaluation, chart review, assessment and plan, discussion discussion >35 minutes Plan discussed with: Patient, Other (RN) My Orders My Orders Orders - JENNY PABON Procedure Category Date Status Time * Surgical Consult CONS 03/01/25 Transmitted 18:09 Pantoprazole PHA 03/02/25 In Process (Protonix) 10:00 Lactulose Oral PHA 03/02/25 In Process 14:00 Nm Hida Scan NM 03/02/25 Resulted 10:00 Hydrocodone-Acet PHA 03/02/25 In Process 5/325mg Tab ([place] 12:30 Dietary Evaluation Review Comments: 1) Nikko 1 pk BID 2) CCHO 75gm + cardiac diet 3) Continue current POC Expected Outcomes/Goals: To meet >75% estimated needs Fu 3-5 days Date of Service: Mar 02, 2025 Billing Provider: JOE MCCLAIN MD Common Visit Codes: [id number] INP/OBS CARE(HIGH) JENNY PABON Mar 02, 2025 15:32 JOE MCCLAIN MD March 05, 2025 20:15
[2025-03-02] MEDS ORDERED: VANCOMYCIN 1.5GM/250ML 250 ML IV SCH (17:00)
[2025-03-03] VITALS (8 sets, daily range): BP systolic 100–123; BP diastolic 50–70; PULSE 67–81; RESP 18–20; TEMP 97.8–99; O2SAT 94–98
[2025-03-03 07:03] LABS: Basophils # (auto) 0.2 10 ^3/uL (0-0.2); Basophils % (auto) 1.8 % (0.0-2.0); Eosinophils # (auto) 0.2 10 ^3/uL (0-0.8); Eosinophils % (auto) 1.4 % (0.0-7.0); Hemoglobin 14.9 g/dL (13.5-17.5); Lymphocytes # (auto) 3.6 10 ^3/uL (0.4-5.4); Lymphocytes % (auto) 26.4 % (10.0-50.0); Mean Corpuscular Hemoglobin 28.9 pg (28.0-32.0); Mean Corpuscular Hgb Conc. 33.1 g/dL (32.0-36.0); Mean Corpuscular Volume 87.3 fL (80.0-100.0); Monocytes # (auto) 1.3 10 ^3/uL (0-1.3); Monocytes % (auto) 9.3 % (0.0-12.0); Neutrophils # (auto) 8.4 10 ^3/uL (1.6-8.6); Neutrophils % (auto) 61.1 % (37.0-80.0); Nucleated Red Blood Cells % 0.2 %; Platelet Count (auto) 229 10^3/uL (140-450); Red Blood Cells 5.16 10^6/uL (4.5-5.90); Red Cell Distribution Width 14.6 % (11.8-14.3); White Blood Cell 13.7 10^3/uL (4.4-10.8)
[2025-03-03 07:11] LABS: Alanine Aminotransferase 26 U/L (7-40); Alkaline Phosphatase 52 U/L (46-116); Anion Gap 9 (5-15); Aspartate Aminotransferase 18 U/L (13-40); BUN/Creatinine Ratio 17.5 (10.0-20.0); Bilirubin, Total 0.7 mg/dL (0.2-1.0); Blood Urea Nitrogen 14 mg/dL (9-23); Calcium 9.4 mg/dL (8.7-10.4); Carbon Dioxide 22 mmol/L (20-31); Glucose 99 mg/dL (74-106); Magnesium 1.8 mg/dL (1.6-2.6); Potassium 4.2 mmol/L (3.5-5.1); Sodium 140 mmol/L (136-145); Total Protein 6.8 g/dL (5.7-8.2)
[2025-03-03 07:12] LABS: Chloride 109 mmol/L (98-107)
[2025-03-03] MEDS ORDERED: VANCOMYCIN 1GM/200ML PM 200 ML IV SCH (11:00)
--- NOTE | 2025-03-03 18:34 | DVHPNRES ---
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 According to the patient, he has been having a right-sided chest pain for the last 3 days after he "jumped from a wall", he describes the pain as sharp and constant 5/10 in intensity and worsens with inspiration without any relieving factors. Patient also notes some orthostatic dizziness. Patient was also noted to have 2 areas of multiple scabbing wounds noted on the right anterior tibial skin which had surrounding erythema, purulence and tenderness to palpation, patient notes he sustained these wounds when he jumped from the wall 3 days ago, however leg wounds appear chronic-subacute. Lab workup revealed leukocytosis with WBC 14.4, TSH 0.53, treponema pallidum antibody positive, RPR reactive, RVR titer 1:1 A. X-ray negative for acute fracture. Paralytic x-ray negative for acute fracture or dislocation. CT head negative for acute intracranial abnormality. CT abdomen pelvis showed 2.5 cm stone in the gallbladder, distended and fluid-filled gallbladder. 2.5 cm hyperdense cyst in the lower pole of the left kidney. 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 Cardiovascular- deny acute r cough or palpitation Respiratory denies cough or wheezing Gastrointestinal- denies any rectal bleeding, nausea or vomiting Neurological- denies acute dysarthria, dysphagia, change in vision Psychiatry- denies depression or SI or HI Skin- denies acute rash or purpura Patient was seen today for clinical evaluation. Labs and chart reviewed. Patient reported feeling better today. No fever overnight. Plan is to continue ceftriaxone and DC vancomycin as patient's wound culture growing group B Streptococcus. As per surgery no surgery recommended at this moment for cholelithiasis. Objective vital signs Vital Sign Date Time Temp Pulse Resp B/P (MAP) Pulse Ox O2 Delivery O2 Flow Rate FiO2 03/03/25 17:00 98.9 67 18 100/50 (67) 94 98.9 03/03/25 08:10 Room Air* 0 21 Total Intake and Output 03/02/25 03/02/25 03/03/25 15:00 23:00 07:00 Intake Total 350 ml 476 ml 220 ml Balance 350 ml 476 ml 220 ml medications Current Medications Medications Dose Ordered Sig/Mary Route Start Time Stop Time Status Last Admin Dose Admin Acetaminophen 325 mg Q4HP PRN PO 02/28/25 21:15 03/01/25 09:41 325 MG Ondansetron HCl 4 mg Q4HP PRN IV 02/28/25 21:15 Enoxaparin Sodium 40 mg DAILY SC 03/01/25 10:00 03/03/25 10:11 40 MG Aspirin 81 mg DAILY PO 03/01/25 10:00 03/03/25 10:10 81 MG Atorvastatin Calcium 40 mg HS PO 02/28/25 22:00 03/02/25 21:49 40 MG Lisinopril 5 mg DAILY PO 03/01/25 01:45 03/03/25 10:10 5 MG Nifedipine 60 mg DAILY PO 03/01/25 01:45 03/03/25 10:14 60 MG Ceftriaxone Sodium 50 ml @ 100 mls/hr DAILY@09 IV 03/02/25 09:00 03/03/25 10:09 100 MLS/HR Pantoprazole Sodium 40 mg DAILY IV 03/02/25 10:00 03/03/25 10:11 40 MG Lactulose 30 ml Q8HR PO 03/02/25 14:00 03/03/25 15:28 30 ML Acetaminophen/ Hydrocodone Bitart 1 tab Q6HPRN PRN PO 03/02/25 12:30 03/03/25 10:11 1 TAB Examination General examination-patient is awake, alert , right-sided chest wall tenderness HEENT- PEERLA, no acute nasal discharge Cardiovascular- S1-S2 audible, rate and rhythm regular, no murmur Respiratory- CTAB, no wheeze or rhonchi Gastrointestinal-nontender, bowel sound+. Nondistended Musculoskeletal-no acute joint swelling or tenderness or redness Lower extremity- right lower leg with the skin abrasion with the some purulent discharge, red, erythema Neurological- cranial nerves intact, no acute dysarthria or dysphagia Psychiatry- denies depression or SI or HI Skin- no acute rash or purpura laboratory and microbiology Laboratory Tests 03/03/25 06:04 Test 03/03/25 06:04 Range/Units Serum Glucose 99 74-106 mg/dL Microbiology Date/Time Source Procedure Growth Status 03/01/25 21:15 Blood Blood Culture - Preliminary NO GROWTH AFTER 24 HOURS OF INCUBATION. Resulted 03/01/25 11:22 Leg Right Gram Stain - Final Resulted 03/01/25 11:22 Wound Culture - Preliminary Streptococcus Group A Resulted Problem List/Assessment/Plan Problem List/Assessment/Plan Assessment and plan-Patient reported feeling better today. No fever overnight. Plan is to continue ceftriaxone and DC vancomycin as patient's wound culture growing group B Streptococcus. As per surgery no surgery recommended at this moment for cholelithiasis. Blood culture negative so far. Acute toxic versus metabolic encephalopathy Sepsis with Right lower extremity cellulitis Symptomatic cholelithiasis, Distended, fluid-filled gallbladder with a 2.5 cm stone - CT head negative for acute intracranial abnormality. CT abdomen pelvis showed 2.5 cm stone in the gallbladder, distended and fluid- filled gallbladder. 2.5 cm hyperdense cyst in the lower pole of the left kidney. - treponemal pallidum antibody positive - plasma alcohol less than 3 - ordered UA, UDS - CT abdomen pelvis: 2.5 cm gallstone in the gallbladder neck. Remainder of the gallbladder is distended and fluid-filled. There is no significant pericholecystic fat stranding. - CXR: No acute cardiopulmonary pathology - GB usg: Cholelithiasis without evidence of acute cholecystitis - CT right lower extremity: Cellulitis and/or superimposed planned edema. No CT evidence of abscess, intramuscular component or necrotizing fasciitis -HIDA scan No evidence of cystic duct obstruction. The common bile duct is patent. -continue antibiotic ceftriaxone and vancomycin as prescribed -Wound Culture revealed group a Staphylococcus. 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 Avila , nursing staff, Total time spent on patient evaluation, chart review, assessment and plan, discussion discussion >35 minutes Plan discussed with: Patient, Other (RN) My Orders My Orders Orders - JENNY PABON Procedure Category Date Status Time Pt Request For Service PT 03/03/25 Logged 08:04 Dietary Evaluation Review Comments: 1) Nikko 1 pk BID 2) CCHO 75gm + cardiac diet 3) Continue current POC Expected Outcomes/Goals: To meet >75% estimated needs Fu 3-5 days Date of Service: March 03, 2025 Billing Provider: JOE MCCLAIN MD Common Visit Codes: [id number] INP/OBS CARE(HIGH) JENNY PABON March 03, 2025 18:34 JOE MCCLAIN MD March 05, 2025 20:48
[2025-03-03] MEDS: MORPHINE SULFATE INJ 2 MG/ml SYRG IV ONE ×2 (22:15→23:02)
[2025-03-04] VITALS (8 sets, daily range): BP systolic 105–132; BP diastolic 56–79; PULSE 65–75; RESP 19–20; TEMP 97.8–98.5; O2SAT 20–96
[2025-03-04 07:42] LABS: Basophils # (auto) 0.1 10 ^3/uL (0-0.2); Basophils % (auto) 0.8 % (0.0-2.0); Eosinophils # (auto) 0.2 10 ^3/uL (0-0.8); Eosinophils % (auto) 2.1 % (0.0-7.0); Hematocrit 46.1 % (41.0-53.0); Hemoglobin 15.3 g/dL (13.5-17.5); Lymphocytes # (auto) 3.9 10 ^3/uL (0.4-5.4); Lymphocytes % (auto) 35.4 % (10.0-50.0); Mean Corpuscular Hemoglobin 28.8 pg (28.0-32.0); Mean Corpuscular Hgb Conc. 33.1 g/dL (32.0-36.0); Mean Corpuscular Volume 87.1 fL (80.0-100.0); Monocytes % (auto) 9.3 % (0.0-12.0); Neutrophils # (auto) 5.8 10 ^3/uL (1.6-8.6); Neutrophils % (auto) 52.4 % (37.0-80.0); Nucleated Red Blood Cells % 0.8 %; Platelet Count (auto) 275 10^3/uL (140-450); Red Cell Distribution Width 14.2 % (11.8-14.3); White Blood Cell 11.1 10^3/uL (4.4-10.8)
[2025-03-04 08:01] LABS: Alanine Aminotransferase 31 U/L (7-40); Albumin 4.2 g/dL (3.2-4.8); Alkaline Phosphatase 56 U/L (46-116); Anion Gap 11 (5-15); Aspartate Aminotransferase 29 U/L (13-40); BUN/Creatinine Ratio 17.4 (10.0-20.0); Blood Urea Nitrogen 15 mg/dL (9-23); Calcium 9.5 mg/dL (8.7-10.4); Carbon Dioxide 23 mmol/L (20-31); Chloride 106 mmol/L (98-107); Glucose 98 mg/dL (74-106); Potassium 3.8 mmol/L (3.5-5.1); Sodium 140 mmol/L (136-145); Total Protein 7.6 g/dL (5.7-8.2)
[2025-03-04 08:02] LABS: Bilirubin, Total 0.6 mg/dL (0.2-1.0)
--- NOTE | 2025-03-04 11:04 | DVHDSRES ---
Discharge Summary Date of Admission Resident Creating Document: JENNY PABON RESIDENT Feb 28, 2025 at 21:15 Date of Discharge: March 04, 2025 Admitting Diagnosis Sepsis likely due to cellulitis of the right foot and also chest pain likely mechanical fall and trauma to the chest Labs/Diagnostic Data: Laboratory Results Test 03/04/25 05:36 03/03/25 09:07 03/03/25 06:04 03/02/25 15:49 White Blood Count 11.1 10^3/uL (4.4-10.8) Red Blood Count 5.30 10^6/uL (4.5-5.90) Hemoglobin 15.3 g/dL (13.5-17.5) Hematocrit 46.1 % (41.0-53.0) Mean Corpuscular Volume 87.1 fL (80.0-100.0) Mean Corpuscular Hemoglobin 28.8 pg (28.0-32.0) Mean Corpuscular Hemoglobin Concent 33.1 g/dL (32.0-36.0) Red Cell Distribution Width 14.2 % (11.8-14.3) Platelet Count 275 10^3/uL (140-450) Mean Platelet Volume 8.8 fL (6.9-10.8) Neutrophils (%) (Auto) 52.4 % (37.0-80.0) Lymphocytes (%) (Auto) 35.4 % (10.0-50.0) Monocytes (%) (Auto) 9.3 % (0.0-12.0) Eosinophils (%) (Auto) 2.1 % (0.0-7.0) Basophils (%) (Auto) 0.8 % (0.0-2.0) Neutrophils # (Auto) 5.8 10 ^3/uL (1.6-8.6) Lymphocytes # (Auto) 3.9 10 ^3/uL (0.4-5.4) Monocytes # (Auto) 1.0 10 ^3/uL (0-1.3) Eosinophils # (Auto) 0.2 10 ^3/uL (0-0.8) Basophils # (Auto) 0.1 10 ^3/uL (0-0.2) Nucleated Red Blood Cells 0.8 % Sodium Level 140 mmol/L (136-145) Potassium Level 3.8 mmol/L (3.5-5.1) Chloride Level 106 mmol/L (98-107) Carbon Dioxide Level 23 mmol/L (20-31) Anion Gap 11 (5-15) Blood Urea Nitrogen 15 mg/dL (9-23) Creatinine 0.86 mg/dL (0.700-1.30) Glomerular Filtration Rate Calc 97 mL/min (>90) BUN/Creatinine Ratio 17.4 (10.0-20.0) Serum Glucose 98 mg/dL (74-106) Calcium Level 9.5 mg/dL (8.7-10.4) Total Bilirubin 0.6 mg/dL (0.2-1.0) Aspartate Amino Transferase (AST) 29 U/L (13-40) Alanine Aminotransferase (ALT) 31 U/L (7-40) Alkaline Phosphatase 56 U/L (46-116) Total Protein 7.6 g/dL (5.7-8.2) Albumin 4.2 g/dL (3.2-4.8) Ammonia 28 umol/L (11-32) Magnesium Level 1.8 mg/dL (1.6-2.6) Random Vancomycin Level 8.3 ug/mL (5-10) Vancomycin Level Trough 27.0 ug/mL (5-10) Test 03/02/25 14:27 03/02/25 11:17 03/01/25 21:30 03/01/25 06:31 Urine Color Yellow (Yellow) Urine Clarity Clear (Clear) Urine pH 6.0 (5.0-9.0) Urine Specific [place] 1.028 (1.001-1.035) Urine Protein Trace (Negative) Urine Ketones Negative (Negative) Urine Blood Negative /uL (Negative) Urine Nitrite Negative (Negative) Urine Bilirubin Negative (Negative) Urine Urobilinogen 3 mg/dL (Negative) Urine Leukocyte Esterase Negative /uL (Negative) Urine RBC None seen /hpf (0 - 3) Urine Microscopic WBC 1 /HPF (0-3) Urine Squamous Epithelial Cells None seen /hpf (<5) Urine Bacteria None seen /hpf (None Seen) Urine Hyaline Casts Few /lpf (0 - 2) Urine Glucose Normal mg/dL (Normal) Urine Opiates Screen Neg (NEGATIVE) Urine Fentanyl Screen Neg (NEGATIVE) Urine Barbiturates Screen Neg (NEGATIVE) Urine Phencyclidine Screen Neg (NEGATIVE) Urine Amphetamines Screen Pos (NEGATIVE) Urine Benzodiazepines Screen Neg (NEGATIVE) Urine Cocaine Screen Neg (NEGATIVE) Urine Cannabinoids Screen Neg (NEGATIVE) Gamma Glutamyl Transpeptidase 74 U/L (<73) Hepatitis A IgM Antibody Negative Hepatitis B Surface Antigen Negative (Negative) Hepatitis B Surface Antibody Negative (Negative) Hepatitis B Core IgM Antibody Negative (Negative) Hepatitis C Antibody Positive (Negative) HIV (1&2) Antibody Negative (Negative) Influenza Type A Antigen Negative (Negative) Influenza Type B Antigen Negative (Negative) SARS-CoV-2 Antigen (Rapid) Negative (NEGATIVE) Hemoglobin A1c 5.6 % A1C (<5.7) Vitamin B12 Level 286 pg/mL (211-911) Vitamin D 25-Hydroxy 29.5 ng/mL (30.0-100) Folic Acid 12.66 ng/mL (>5.38) Thyroid Stimulating Hormone (TSH) 0.53 uIU/mL (0.55-4.78) Rapid Plasma Reagin Titer 1:1 Titer (NONREACTIVE) Rapid Plasma Reagin Reactive (NONREACTIVE) Treponema pallidum Antibody Reactive (Negative) Test 02/28/25 21:52 02/28/25 13:00 02/28/25 12:12 Phosphorus Level 3.0 mg/dL (2.4-5.1) Plasma/Serum Blood Alcohol < 3.0 mg/dL (<10) Troponin I High Sensitivity 4 ng/L (</=54) Lactic Acid Level 1.9 mmol/L (0.4-2.0) B-Type Natriuretic Peptide 32.15 pg/mL (0-100) Lipase 39 U/L (12-53) Other Laboratory Tests 03/04/25 05:36 Brief Hx & Hospital Course: Patient is a 64-year-old unhoused male with past medical history of hypertension, diabetes, 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 According to the patient, he has been having a right-sided chest pain for the last 3 days after he "jumped from a wall", he describes the pain as sharp and constant 5/10 in intensity and worsens with inspiration without any relieving factors. Patient also notes some orthostatic dizziness. Patient was also noted to have 2 areas of multiple scabbing wounds noted on the right anterior tibial skin which had surrounding erythema, purulence and tenderness to palpation, patient notes he sustained these wounds when he jumped from the wall 3 days ago, however leg wounds appear chronic-subacute. Lab workup revealed leukocytosis with WBC 14.4, TSH 0.53, treponema pallidum antibody positive, RPR reactive, RVR titer 1:1 A. X-ray negative for acute fracture. Paralytic x-ray negative for acute fracture or dislocation. CT head negative for acute intracranial abnormality. CT abdomen pelvis showed 2.5 cm stone in the gallbladder, distended and fluid-filled gallbladder. 2.5 cm hyperdense cyst in the lower pole of the left kidney. 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 According to the patient, he has been having a right-sided chest pain for the last 3 days after he "jumped from a wall", he describes the pain as sharp and constant 5/10 in intensity and worsens with inspiration without any relieving factors. Patient also notes some orthostatic dizziness. Patient was also noted to have 2 areas of multiple scabbing wounds noted on the right anterior tibial skin which had surrounding erythema, purulence and tenderness to palpation, patient notes he sustained these wounds when he jumped from the wall 3 days ago, however leg wounds appear chronic-subacute. Lab workup revealed leukocytosis with WBC 14.4, TSH 0.53, treponema pallidum antibody positive, RPR reactive, RVR titer 1:1 A. X-ray negative for acute fracture. Paralytic x-ray negative for acute fracture or dislocation. CT head negative for acute intracranial abnormality. CT abdomen pelvis showed 2.5 cm stone in the gallbladder, distended and fluid-filled gallbladder. 2.5 cm hyperdense cyst in the lower pole of the left kidney. Patient was treated with ceftriaxone and vancomycin for cellulitis. 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 Patient also tested positive for hepatitis-C likely cirrhosis of liver with hepatic encephalopathy. Culture revealed group a Streptococcus. Patient is being discharged with Augmentin, patient was advised to follow up with the Infectious Disease for further management of syphilis. Patient was advised to follow up with the primary care physician for further evaluation and care. 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 Sepsis with Right lower extremity cellulitis Suspected cirrhosis of liver with hepatic encephalopathy Hepatitis-C infection Suspected cirrhosis of liver Symptomatic cholelithiasis, Distended, fluid-filled gallbladder with a 2.5 cm stone s/p mechanical fall R chest wall pain with hematoma noted Syphilis Jarisch- Herxheimer reaction Suspected cirrhosis of liver Hepatitis-C antibody positive Hyper ammonia Leukocytosis Hypertension Hypertensive heart disease Type 2 diabetes History of 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 b.i.d. for 14 days Aspirin 81 mg p.o. daily Atorvastatin 40 mg daily Famotidine 20 mg b.i.d. Lisinopril 5 mg daily Nifedipine 30 mg ER daily Please follow up with the primary care physician in 1 week Follow up with the infectious disease doctor for further management and care of syphilis Operations or Procedures [place] [address] Ph: [phone] DIAGNOSTIC IMAGING Diagnostic Imaging Report : [id number] Signed PATIENT: NANCY ORELLANA ACCT: [id number] UNIT: [id number] : 1960 LOC: ER ROOM / BED: / AGE / SEX: 64 / M ADM STATUS: REG ER SERVICE 1223 ORDERING PHYSICIAN: GEOVANI PRADHAN MD PROCEDURE(s): ABPL - CT AB PEL WO CON-NO ORAL OR IV REASON: ruq pain ORDER NUMBER(s): [id number], ACCESSION NUMBER(s): [id number] CT ABDOMEN AND PELVIS WITHOUT CONTRAST CLINICAL HISTORY: ruq pain TECHNIQUE: Multiple contiguous axial images of the abdomen and pelvis without intravenous contrast. The images were reformatted degenerate coronal and sagittal reconstructions. All CT scans at this medical facility are performed using dose modulation techniques as appropriate to a performed exam including the following:Automated exposure control was utilized; adjustment of the MA and/or KV according to patient size; and use of iterative reconstruction technique. Radiation Dose Information: CT Dose: CTDI volume is 23.19 mGy. Dose-length product is 1439.01 mGy*cm Comparison: CT CT AB PEL WO CON-NO ORAL OR IV on DOS: 01/13/25 FINDINGS: Evaluation of the abdomen and pelvis is limited without intravenous contrast. There is no evidence of nephrolithiasis or hydronephrosis. There is a stable small cortical calcification in the upper pole of the left kidney. There is a stable 2.5 cm oval hyperdense cyst in the lower pole of the left kidney. There is no evidence of a ureteral calculus or hydroureter. There is a 2.5 cm gallstone in the gallbladder neck. The remainder of the gallbladder is distended and fluid-filled. There is no significant pericholecystic fat stranding. The liver, pancreas, adrenal glands, and spleen appear within normal limits. There is no gross evidence of abdominal lymphadenopathy. There is no free fluid or free air. The stomach grossly appears unremarkable. The small and large bowel loops demonstrate normal caliber and distribution. The appendix is not seen in the right lower quadrant abdomen. There are no secondary signs of acute appendicitis. The abdominal aorta and IVC appear within normal limits. The bladder appears unremarkable for the degree of distention. Pelvic organ appears within normal limits. There is no gross evidence of a pelvic mass. There is no free fluid collection. Lung bases are clear. There is no acute osseous abnormality. IMPRESSION: 1. 2.5 cm gallstone in the gallbladder neck. Remainder of the gallbladder is distended and fluid-filled. There is no significant pericholecystic fat stranding. 2. Stable 2.5 cm hyperdense cyst in the lower pole of the left kidney. HS:Y ATED BY: DAVID BENOIT MD DICTATED DATE/TIME: 02/28/25 1309 SIGNED BY: DAVID BENOIT MD SIGNED DATE/TIME: 02/28/25 1309 CC: [place] [address] Ph: [phone] DIAGNOSTIC IMAGING Diagnostic Imaging Report : [id number] Signed PATIENT: NANCY ORELLANA ACCT: [id number] UNIT: [id number] : 1960 LOC: ER ROOM / BED: / AGE / SEX: 64 / M ADM STATUS: REG ER SERVICE 1223 ORDERING PHYSICIAN: GEOVANI PRADHAN MD PROCEDURE(s): CXR1 - CHEST XRAY 1 VIEW REASON: cp ORDER NUMBER(s): [id number], ACCESSION NUMBER(s): [id number] AP portable chest CLINICAL INDICATION: Chest pain Comparison: 01/13/2025 FINDINGS: Heart size slightly enlarged with a left ventricular configuration. The aorta is tortuous. No infiltrates or effusions IMPRESSION: 1. No acute cardiopulmonary pathology ATED BY: NIVIA ORTIZ MD DICTATED DATE/TIME: 02/28/25 130 SIGNED BY: NIVIA ORTIZ MD SIGNED DATE/TIME: 02/28/25 130 CC: [place] [address] Ph: [phone] DIAGNOSTIC IMAGING Diagnostic Imaging Report : [id number] Signed PATIENT: NANCY ORELLANA ACCT: [id number] UNIT: [id number] : 1960 LOC: OVERFLOW ROOM / BED: [facility] [place] / A AGE / SEX: 64 / M ADM STATUS: ADM IN SERVICE ORDERING PHYSICIAN: SANDRA VENCES PROCEDURE(s): GBUS - GALLBLADDER REASON: evaluate gallbladder ORDER NUMBER(s): [id number], ACCESSION NUMBER(s): [id number] INDICATION: evaluate gallbladder TECHNIQUE: Multiple real-time sonographic images of the abdomen were obtained. COMPARISON: None FINDINGS: Liver is within normal limits in size and echogenicity with no lesions identified. No evidence of intrahepatic or extrahepatic biliary ductal dilatation with the common bile duct measuring 6 mm. Gallstones are noted in the gallbladder which otherwise appears unremarkable with no evidence of wall thickening or pericholecystic fluid. Sonographic Betts's sign was reportedly negative. Right kidney measures 10.6 cm and appears unremarkable with no hydronephrosis. Pancreas is obscured by overlying bowel gas No fluid collection noted. IMPRESSION: Cholelithiasis without evidence of acute cholecystitis. ATED BY: BENOIT HALL MD DICTATED DATE/TIME: 02/28/252240 SIGNED BY: BENOIT HALL MD SIGNED DATE/TIME: 02/28/252240 CC: [place] [address] Ph: [phone] DIAGNOSTIC IMAGING Diagnostic Imaging Report : [id number] Signed PATIENT: NANCY ORELLANA ACCT: [id number] UNIT: [id number] : 1960 LOC: ER ROOM / BED: / AGE / SEX: 64 / M ADM STATUS: REG ER SERVICE 14 ORDERING PHYSICIAN: SANDRA VENCES RESIDENT PROCEDURE(s): RTBCT - CT R TIB FIB WO CONTRAST REASON: R ant tibial cellulitis? ORDER NUMBER(s): [id number], ACCESSION NUMBER(s): [id number] EXAM: CT CT R TIB FIB WO CONTRAST INDICATION: R ant tibial cellulitis TECHNIQUE: Axial images of right tibia/ fibula without contrast have been obtained along with coronal and sagittal reformatted images. All CT scans at this facility use dose modulation, iterative reconstruction, and/or weight based dosing when appropriate to reduce radiation dose to as low as reasonably achievable. COMPARISON: None FINDINGS: BONES: No CT evidence of an acute fracture or aggressive osseous lesion. MUSCLES: No abnormal attenuation. JOINT SPACES: No joint effusion. TENDONS/LIGAMENTS: Intact. OTHER: Extensive surrounding subcutaneous tissue edema. No drainable fluid collection. Slight anterior skin thickening. No soft tissue emphysema. IMPRESSION: 1. Cellulitis and/or superimposed bland edema. No CT evidence of abscess, intramuscular component, or necrotizing fasciitis. ATED BY: JOSE ANTONIO NGUYEN MD DICTATED DATE/TIME: 02/28/252216 SIGNED BY: JOSE ANTONIO NGUYEN MD SIGNED DATE/TIME: 02/28/252216 CC: [address] [address] Ph: [phone] DIAGNOSTIC IMAGING Diagnostic Imaging Report : [id number] Signed PATIENT: NANCY ORELLANA ACCT: [id number] UNIT: [id number] : 1960 [facility] AGE / SEX: 64 / M ADM STATUS: ADM IN SERVICE 0700 ORDERING PHYSICIAN: SANDRA VENCES RESIDENT PROCEDURE(s): HWOCT - HEAD WITHOUT CONTRAST REASON: ALOC ORDER NUMBER(s): [id number], ACCESSION NUMBER(s): [id number] EXAM: CT HEAD WITHOUT CONTRAST INDICATION: ALOC TECHNIQUE: CT of the head without intravenous contrast. Radiation Dose Information: CT Dose: CTDI volume is 65.28 mGy. Dose-length product is 1286.23 mGy*cm The dose indicators for CT are the volume Computed Tomography (CT) Dose Index (CTDIvol) and the Dose Length Product (DLP), and are measured in units of mGy and mGy-cm, respectively. These indicators are not patient dose, but values generated from the CT scanner acquisition factors. The report includes radiation exposure data for exposures received during this examination. COMPARISON: CT HEAD WITHOUT CONTRAST on DOS: 12/22/24 FINDINGS: There is no evidence of acute intracranial hemorrhage, extra-axial collection, mass effect, midline shift, herniation or hydrocephalus. The ventricles, sulci and cisterns are age appropriate. Encephalomalacia left parietal lobe. Chronic left MCA territory infarct. The ni-white differentiation is intact. Patchy periventricular and subcortical white matter hypoattenuation is nonspecific but may be related to small vessel ischemic disease. The visualized paranasal sinuses and mastoid air cells are clear. The surrounding soft tissues and osseous structures are unremarkable. IMPRESSION: No acute intracranial abnormality. MRI Suggested. Encephalomalacia left parietal lobe. Chronic left MCA territory infarct. ATED BY: JOSE ANTONIO NGUYEN MD DICTATED DATE/TIME: 03/01/25 1359 SIGNED BY: JOSE ANTONIO NGUYEN MD SIGNED DATE/TIME: 03/01/25 1359 CC: [place] [address] Ph: [phone] DIAGNOSTIC IMAGING Diagnostic Imaging Report : [id number] Signed PATIENT: NANCY ORELLANA ACCT: [id number] UNIT: [id number] : 1960 LOC[facility] AGE / SEX: 64 / M ADM STATUS: ADM IN SERVICE 07 ORDERING PHYSICIAN: SANDRA VENCES PROCEDURE(s): PELVS - PELVIS AP REASON: fall? eval R hip ORDER NUMBER(s): [id number], ACCESSION NUMBER(s): [id number] EXAM: XY PELVIS AP CLINICAL INDICATION: fall eval R hip TECHNIQUE: XY PELVIS AP Comparison: None FINDINGS/IMPRESSION: There is no evidence of acute fracture or dislocation. The visualized joint space is well maintained. The alignment is anatomical. There is no radiopaque foreign body. Large stool burden. ATED BY: JOSE ANTONIO NGUYEN MD DICTATED DATE/TIME: 03/01/25 135 SIGNED BY: JOSE ANTONIO NGUYEN MD SIGNED DATE/TIME: 03/01/25 135 CC: [place] [address] Ph: [phone] DIAGNOSTIC IMAGING Diagnostic Imaging Report : [id number] Signed PATIENT: NANCY OERLLANA ACCT: [id number] UNIT: [id number] : 1960 LOC[facility] AGE / SEX: 64 / M ADM STATUS: ADM IN SERVICE 07 ORDERING PHYSICIAN: SANDRA VENCES PROCEDURE(s): RRIBS - R RIB XRAY REASON: tenderness, hematoma ORDER NUMBER(s): [id number], ACCESSION NUMBER(s): [id number] EXAMINATION: XY R RIB XRAY INDICATION: tenderness, hematoma COMPARISON: None TECHNIQUE: Frontal view of the chest and 4 views of the bilateral ribs history FINDINGS: No focal consolidation, pleural effusion or significant pneumothorax. Normal cardiomediastinal silhouette. No displaced bilateral rib fracture. IMPRESSION: No acute cardiopulmonary disease. No displaced bilateral rib fracture. ATED BY: JOSE ANTONIO NGUYEN MD DICTATED DATE/TIME: 03/01/25 1357 SIGNED BY: JOSE ANTONIO NGUYEN MD SIGNED DATE/TIME: 03/01/25 1357 CC: [address] [address] Ph: [phone] DIAGNOSTIC IMAGING Diagnostic Imaging Report : [id number] Signed PATIENT: NANCY ORELLANA ACCT: [id number] UNIT: [id number] : 1960 LOC[facility] AGE / SEX: 64 / M ADM STATUS: ADM IN SERVICE 1000 ORDERING PHYSICIAN: JENNY PABON RESIDENT PROCEDURE(s): GBNM - NM HIDA SCAN REASON: Suspected acute cholecystitis due to cholelithiasis ORDER NUMBER(s): [id number], ACCESSION NUMBER(s): [id number] Procedure: NM NM HIDA SCAN Exam Date: 03/02/2025 09:56 AM Clinical History: Suspected acute cholecystitis due to cholelithiasis Comparison Study: Ultrasound dated 02/28/2025 Technique: Following the intravenous administration of 6 mCi of technetium 99m labeled Choletec multiple planar abdominal planar images were obtained in anterior projection in 5 minute intervals 30- 60 minutes . Right lateral left anterior oblique images were obtained at 60 minutes after injection. Findings: The liver appears grossly normal in size. There is no abnormal persistence of the cardiac or blood pool activity. Tracer can be seen in the small bowel at 30 minutes. There is radiotracer in gallbladder lumen but gallbladder appears contracted. Impression: 1. No evidence of cystic duct obstruction. The common bile duct is patent. 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 of liver with hepatic encephalopathy Hepatitis-C infection Suspected cirrhosis of liver Symptomatic cholelithiasis, Distended, fluid-filled gallbladder with a 2.5 cm stone s/p mechanical fall R chest wall pain with hematoma noted Syphilis Jarisch- Herxheimer reaction Suspected cirrhosis of liver Hepatitis-C antibody positive Hyper ammonia Leukocytosis Hypertension Hypertensive heart disease Type 2 diabetes 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 b.i.d. for 14 days Aspirin 81 mg p.o. daily Atorvastatin 40 mg daily Famotidine 20 mg b.i.d. Lisinopril 5 mg daily Nifedipine 30 mg ER daily Please follow up with the primary care physician in 1 week Follow up with the infectious disease doctor for further management and care of syphilis Discharge Statement: "Patient was advised to return to the ER or call 911 if any headaches, dizziness, shortness of breath, chest pain, abdominal pain, bleeding, fevers, or worsening of medical condition. Patient was counseled about treatment plan, medications, possible side effects, patientverbalized understanding. All questions were answered to the best of my ability. This discharge took greater then 30 minutes in planning, reviewing documentation, counseling the patient, and discussing with other team members." ASSESSMENT ASSESSMENT Assessment Date of Service: March 04, 2025 Billing Provider: SEVERIANO SERRANO DO Common Visit Codes: 06351-EBA/OBS DISCH DAY >30min JENNY PABON RESIDENT March 04, 2025 11:04 SEVERIANO SERRANO DO March 07, 2025 18:58
[2025-03-04] MEDS ORDERED: LISI-275 PO (14:27)
[2025-03-04] MEDS ORDERED: FAMO-12 PO (14:27)
[2025-03-04] MEDS ORDERED: NIFE1TAB36 PO (14:27)
[2025-03-04] MEDS ORDERED: ASPI81CH49 PO (14:27)
[2025-03-04] MEDS ORDERED: ATOR40TA52 PO (14:27)
[2025-03-04] MEDS ORDERED: AUG875T PO (14:27)
[2025-03-04] MEDS ORDERED: LACT10SO3 PO (14:27)
[2025-03-04] MEDS ORDERED: NAPR-746 PO (14:58)
[2025-03-05] VITALS (8 sets, daily range): BP systolic 104–145; BP diastolic 46–82; PULSE 64–72; RESP 17–20; TEMP 98–98.3; O2SAT 95–97
--- NOTE | 2025-03-05 12:01 | DVHPNRES ---
Progress Note Date Seen: March 05, 2025 Resident Creating Document: NIRANJAN AZEVEDO RESDIENT Medical Necessity Reason Pt with a Central, PICC or Fol: No Subjective Review of Systems Patient seen and examined at the bedside. Patient does not have active complaint. Patient reports: No new complaints, Feels better Changes from previous H/P or p: Changes Objective vital signs Vital Sign Date Time Temp Pulse Resp B/P (MAP) Pulse Ox O2 Delivery O2 Flow Rate FiO2 03/05/25 09:55 98.1 64 18 145/82 (103) 96 98.1 03/05/25 08:00 Room Air* 0 21 Total Intake and Output 03/04/25 03/04/25 03/05/25 15:00 23:00 07:00 Intake Total 50 ml 650 ml 240 ml Balance 50 ml 650 ml 240 ml medications Current Medications Medications Dose Ordered Sig/Mary Route Start Time Stop Time Status Last Admin Dose Admin Acetaminophen 325 mg Q4HP PRN PO 02/28/25 21:15 03/01/25 09:41 325 MG Ondansetron HCl 4 mg Q4HP PRN IV 02/28/25 21:15 Enoxaparin Sodium 40 mg DAILY SC 03/01/25 10:00 03/04/25 09:00 40 MG Aspirin 81 mg DAILY PO 03/01/25 10:00 03/05/25 09:22 81 MG Atorvastatin Calcium 40 mg HS PO 02/28/25 22:00 03/04/25 19:52 40 MG Lisinopril 5 mg DAILY PO 03/01/25 01:45 03/05/25 09:23 5 MG Nifedipine 60 mg DAILY PO 03/01/25 01:45 03/05/25 09:23 60 MG Ceftriaxone Sodium 50 ml @ 100 mls/hr DAILY@09 IV 03/02/25 09:00 03/05/25 09:22 100 MLS/HR Pantoprazole Sodium 40 mg DAILY IV 03/02/25 10:00 03/05/25 09:23 40 MG Lactulose 30 ml Q8HR PO 03/02/25 14:00 03/05/25 05:07 30 ML Acetaminophen/ Hydrocodone Bitart 1 tab Q6HPRN PRN PO 03/02/25 12:30 03/04/25 19:52 1 TAB Examination General examination-patient is awake, alert , right-sided chest wall tenderness HEENT- PEERLA, no acute nasal discharge Cardiovascular- S1-S2 audible, rate and rhythm regular, no murmur Respiratory- CTAB, no wheeze or rhonchi Gastrointestinal-nontender, bowel sound+. Nondistended Musculoskeletal-no acute joint swelling or tenderness or redness Lower extremity- right lower leg with the skin abrasion with the some purulent discharge, red, erythema Neurological- cranial nerves intact, no acute dysarthria or dysphagia Psychiatry- denies depression or SI or HI Skin- no acute rash or purpura laboratory and microbiology Laboratory Tests 03/04/25 05:36 Test 03/04/25 05:36 Range/Units Serum Glucose 98 74-106 mg/dL Microbiology Date/Time Source Procedure Growth Status 03/01/25 21:15 Blood Blood Culture - Preliminary NO GROWTH AFTER 72 HOURS OF INCUBATION. Resulted 03/01/25 11:22 Leg Right Gram Stain - Final Resulted 03/01/25 11:22 Wound Culture - Preliminary Streptococcus Group A Resulted Labs and/or images reviewed: Labs reviewed by me, Image(s) reviewed by me Problem List/Assessment/Plan Problem List/Assessment/Plan Assessment and plan-Patient reported feeling better today. No fever overnight. Plan is to continue ceftriaxone and DC vancomycin as patient's wound culture growing group B Streptococcus. As per surgery no surgery recommended at this moment for cholelithiasis. Blood culture negative so far. Acute toxic versus metabolic encephalopathy Sepsis with Right lower extremity cellulitis Symptomatic cholelithiasis, Distended, fluid-filled gallbladder with a 2.5 cm stone - CT head negative for acute intracranial abnormality. CT abdomen pelvis showed 2.5 cm stone in the gallbladder, distended and fluid- filled gallbladder. 2.5 cm hyperdense cyst in the lower pole of the left kidney. - treponemal pallidum antibody positive - plasma alcohol less than 3 - ordered UA, UDS - CT abdomen pelvis: 2.5 cm gallstone in the gallbladder neck. Remainder of the gallbladder is distended and fluid-filled. There is no significant pericholecystic fat stranding. - CXR: No acute cardiopulmonary pathology - GB usg: Cholelithiasis without evidence of acute cholecystitis - CT right lower extremity: Cellulitis and/or superimposed planned edema. No CT evidence of abscess, intramuscular component or necrotizing fasciitis -HIDA scan No evidence of cystic duct obstruction. The common bile duct is patent. -continue antibiotic ceftriaxone and vancomycin as prescribed -Wound Culture revealed group a Staphylococcus. 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 Plan discussed with Dr. Serrano , nursing staff, Plan discussed with: Patient, Other (RN) My Orders My Orders Orders - NIRANJAN AZEVEDO RESDIJOHNNY Procedure Category Date Status Time * Public Health Outreach Worker CONS 03/05/25 Transmitted Consult Dietary Evaluation Review Comments: 1) Nikko 1 pk BID 2) CCHO 75gm + cardiac diet 3) Continue current POC Expected Outcomes/Goals: To meet >75% estimated needs Fu 3-5 days Date of Service: March 05, 2025 Billing Provider: SEVERIANO SERRANO DO Common Visit Codes: [id number] INP/OBS CARE(HIGH) NIRANJAN AZEVEDO RESDIENT March 05, 2025 12:01 SEVERIANO SERRANO DO March 07, 2025 18:55
[2025-03-06 01:01] VITALS: BP 126/76; PULSE 67; RESP 17; TEMP 97.8; O2SAT 96
[2025-03-06 05:00] VITALS: BP 114/69; PULSE 60; RESP 16; TEMP 98.3; O2SAT 95
[2025-03-06 08:58] LABS: Basophils # (auto) 0 10 ^3/uL (0-0.2); Basophils % (auto) 0.5 % (0.0-2.0); Eosinophils # (auto) 0.3 10 ^3/uL (0-0.8); Eosinophils % (auto) 3.4 % (0.0-7.0); Hematocrit 46.7 % (41.0-53.0); Hemoglobin 15.7 g/dL (13.5-17.5); Lymphocytes # (auto) 2.6 10 ^3/uL (0.4-5.4); Lymphocytes % (auto) 35.2 % (10.0-50.0); Mean Corpuscular Hemoglobin 29.2 pg (28.0-32.0); Mean Corpuscular Hgb Conc. 33.7 g/dL (32.0-36.0); Mean Corpuscular Volume 86.7 fL (80.0-100.0); Monocytes # (auto) 0.6 10 ^3/uL (0-1.3); Monocytes % (auto) 7.6 % (0.0-12.0); Neutrophils # (auto) 3.9 10 ^3/uL (1.6-8.6); Neutrophils % (auto) 53.3 % (37.0-80.0); Nucleated Red Blood Cells % 0.4 %; Platelet Count (auto) 313 10^3/uL (140-450); Red Blood Cells 5.39 10^6/uL (4.5-5.90); Red Cell Distribution Width 14.2 % (11.8-14.3); White Blood Cell 7.3 10^3/uL (4.4-10.8)
[2025-03-06 09:11] LABS: Albumin 4.3 g/dL (3.2-4.8); Alkaline Phosphatase 56 U/L (46-116); Anion Gap 10 (5-15); BUN/Creatinine Ratio 21.8 (10.0-20.0); Bilirubin, Total 0.5 mg/dL (0.2-1.0); Blood Urea Nitrogen 19 mg/dL (9-23); Calcium 9.5 mg/dL (8.7-10.4); Carbon Dioxide 22 mmol/L (20-31); Chloride 107 mmol/L (98-107); Sodium 139 mmol/L (136-145); Total Protein 7.7 g/dL (5.7-8.2)
[2025-03-06 09:12] VITALS: BP 122/75; PULSE 60; RESP 18; TEMP 98; O2SAT 96
[2025-03-06 09:12] LABS: Alanine Aminotransferase 74 U/L (7-40); Aspartate Aminotransferase 72 U/L (13-40); Glucose 139 mg/dL (74-106)
--- NOTE | 2025-03-06 13:15 | DVHPNRES ---
Progress Note Date Seen: March 06, 2025 Resident Creating Document: JENNY PABON Medical Necessity Reason Pt with a Central, PICC or Fol: No Subjective Review of Systems Patient is a 64-year-old unhoused male with past medical history of hypertension, diabetes, 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 According to the patient, he has been having a right-sided chest pain for the last 3 days after he "jumped from a wall", he describes the pain as sharp and constant 5/10 in intensity and worsens with inspiration without any relieving factors. Patient also notes some orthostatic dizziness. Patient was also noted to have 2 areas of multiple scabbing wounds noted on the right anterior tibial skin which had surrounding erythema, purulence and tenderness to palpation, patient notes he sustained these wounds when he jumped from the wall 3 days ago, however leg wounds appear chronic-subacute. Lab workup revealed leukocytosis with WBC 14.4, TSH 0.53, treponema pallidum antibody positive, RPR reactive, RVR titer 1:1 A. X-ray negative for acute fracture. Paralytic x-ray negative for acute fracture or dislocation. CT head negative for acute intracranial abnormality. CT abdomen pelvis showed 2.5 cm stone in the gallbladder, distended and fluid-filled gallbladder. 2.5 cm hyperdense cyst in the lower pole of the left kidney. Patient was treated with ceftriaxone and vancomycin for cellulitis. 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 Patient also tested positive for hepatitis-C likely cirrhosis of liver with hepatic encephalopathy. Culture revealed group a Streptococcus. Patient is being discharged with Augmentin, patient was advised to follow up with the Infectious Disease for further management of syphilis. Patient was advised to follow up with the primary care physician for further evaluation and care. Patient was hemodynamically stable on discharge Patient was discharged on 03/04/2025 got stuck due to transportation issue and also regarding placement. Patients transportation is scheduled today 12:30 p.m.. Patient was hemodynamically stable, chest pain Eliquis has improved. Objective vital signs Vital Sign Date Time Temp Pulse Resp B/P (MAP) Pulse Ox O2 Delivery O2 Flow Rate FiO2 03/06/25 10:15 122/75 03/06/25 09:12 98.0 60 18 96 98.0 03/06/25 08:00 Room Air* 0 21 Total Intake and Output 03/05/25 03/05/25 03/06/25 15:00 23:00 07:00 Intake Total 50 ml 300 ml 430 ml Balance 50 ml 300 ml 430 ml medications Current Medications Medications Dose Ordered Sig/Mary Route Start Time Stop Time Status Last Admin Dose Admin Acetaminophen 325 mg Q4HP PRN PO 02/28/25 21:15 03/01/25 09:41 325 MG Ondansetron HCl 4 mg Q4HP PRN IV 02/28/25 21:15 Enoxaparin Sodium 40 mg DAILY SC 03/01/25 10:00 03/04/25 09:00 40 MG Aspirin 81 mg DAILY PO 03/01/25 10:00 03/06/25 10:15 81 MG Atorvastatin Calcium 40 mg HS PO 02/28/25 22:00 03/05/25 21:19 40 MG Lisinopril 5 mg DAILY PO 03/01/25 01:45 03/06/25 10:15 5 MG Nifedipine 60 mg DAILY PO 03/01/25 01:45 03/06/25 10:15 60 MG Ceftriaxone Sodium 50 ml @ 100 mls/hr DAILY@09 IV 03/02/25 09:00 03/06/25 10:13 100 MLS/HR Pantoprazole Sodium 40 mg DAILY IV 03/02/25 10:00 03/06/25 10:13 40 MG Lactulose 30 ml Q8HR PO 03/02/25 14:00 03/06/25 05:18 30 ML Acetaminophen/ Hydrocodone Bitart 1 tab Q6HPRN PRN PO 03/02/25 12:30 03/05/25 21:20 1 TAB Examination General examination-patient is awake, alert , right-sided chest wall tenderness HEENT- PEERLA, no acute nasal discharge Cardiovascular- S1-S2 audible, rate and rhythm regular, no murmur Respiratory- CTAB, no wheeze or rhonchi Gastrointestinal-nontender, bowel sound+. Nondistended Musculoskeletal-no acute joint swelling or tenderness or redness Lower extremity- right lower leg with the skin abrasion with the some purulent discharge, red, erythema improving Neurological- cranial nerves intact, no acute dysarthria or dysphagia Psychiatry- denies depression or SI or HI Skin- no acute rash or purpura laboratory and microbiology Laboratory Tests 03/06/25 08:41 Test 03/06/25 08:41 Range/Units Serum Glucose 139 H 74-106 mg/dL Microbiology Date/Time Source Procedure Growth Status 03/01/25 21:15 Blood Blood Culture - Preliminary NO GROWTH AFTER 72 HOURS OF INCUBATION. Resulted 03/01/25 11:22 Leg Right Gram Stain - Final Complete 03/01/25 11:22 Leg Right Wound Culture - Final Complete Problem List/Assessment/Plan Problem List/Assessment/Plan Assessment and plan-Patient reported feeling better today. No fever overnight. Plan is to continue ceftriaxone and DC vancomycin as patient's wound culture growing group B Streptococcus. As per surgery no surgery recommended at this moment for cholelithiasis. Blood culture negative so far. Acute toxic versus metabolic encephalopathy Sepsis with Right lower extremity cellulitis Symptomatic cholelithiasis, Distended, fluid-filled gallbladder with a 2.5 cm stone - CT head negative for acute intracranial abnormality. CT abdomen pelvis showed 2.5 cm stone in the gallbladder, distended and fluid- filled gallbladder. 2.5 cm hyperdense cyst in the lower pole of the left kidney. - treponemal pallidum antibody positive - plasma alcohol less than 3 - ordered UA, UDS - CT abdomen pelvis: 2.5 cm gallstone in the gallbladder neck. Remainder of the gallbladder is distended and fluid-filled. There is no significant pericholecystic fat stranding. - CXR: No acute cardiopulmonary pathology - GB usg: Cholelithiasis without evidence of acute cholecystitis - CT right lower extremity: Cellulitis and/or superimposed planned edema. No CT evidence of abscess, intramuscular component or necrotizing fasciitis -HIDA scan No evidence of cystic duct obstruction. The common bile duct is patent. -continue antibiotic ceftriaxone and vancomycin as prescribed -Wound Culture revealed group a Staphylococcus. 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 Serrano , nursing staff, Total time spent on patient evaluation, chart review, assessment and plan, discussion discussion >35 minutes Plan discussed with: Patient, Other Dietary Evaluation Review Comments: 1) Nikko 1 pk BID 2) CCHO 75gm + cardiac diet 3) Continue current POC Expected Outcomes/Goals: To meet >75% estimated needs Fu 3-5 days Date of Service: March 06, 2025 Billing Provider: SEVERIANO SERRANO DO Common Visit Codes: [id number] INP/OBS CARE(HIGH) JENNY PABON RESIDENT March 06, 2025 13:14 SEVERIANO SERRANO DO March 07, 2025 18:55
== END 2025-03-06 13:21 | disposition home or self-care (01) | DRG 720 ==
LOC: EDBD 12:09 → ER 12:11 → OVERFLOW 21:15 → TELE-WESTW 23:52
PROVIDERS: ADMIT Student in an Organized Health Care Education/Training Program; ATTEND Student in an Organized Health Care Education/Training Program
DX: A41.9 Sepsis, unspecified organism (principal); G92.8 Other toxic encephalopathy; K80.21 Calculus of gallbladder without cholecystitis with obstruction; I69.351 Hemiplegia and hemiparesis following cerebral infarction affecting right dominant side; A53.0 Latent syphilis, unspecified as early or late; E11.9 Type 2 diabetes mellitus without complications; L03.115 Cellulitis of right lower limb; B19.20 Unspecified viral hepatitis C without hepatic coma; Z20.822 Contact with and (suspected) exposure to COVID-19; K74.60 Unspecified cirrhosis of liver; F17.210 Nicotine dependence, cigarettes, uncomplicated; I10 Essential (primary) hypertension; Z59.00 Homelessness unspecified; Z79.899 Other long term (current) drug therapy; Z90.49 Acquired absence of other specified parts of digestive tract
CPT/HCPCS: 36415; 70450; 71045; 71101; 72170; 73700; 74176; 76705; 78226; 80053; 80074; 80202; 80307; 80320; 81001; 82140; 82306; 82607; 82746; 82977; 83036; 83605; 83690; 83735; 83880; 84100; 84443; 84484; 85025; 86592; 86593; 86703; 86706; 86780; 86803; 87040; 87205; 87426; 87804; 92610; 93005; 96374; 96375; 97110; 97116; 97163; 97530; G0378; J0561; J2405; J2470; J2543